=== PATIENT | male | born 1965 | race African-American/Black ===

== ENCOUNTER 2018-05-26 11:06 | Emergency (ER) | payer SELFPAY ==
[2018-05-26] MEDS ORDERED: CLINDAMYCIN HCL 150 MG CAP ONE (11:46)
[2018-05-26] MEDS ORDERED: HYDROCODONE/APAP 7.5/325 MG TAB ONE (11:46)
--- NOTE | 2018-05-26 11:53 | EDPHYS ---
Physician Documentation [facility] Name: Zheng Nicholas Age: 52 yrs Sex: Male : 1965 Arrival Date: 05/26/2018 Time: 11:10 Bed 14 Private MD: None, None ED Physician Manjinder Heller HPI: 05/26 11:41 This 52 yrs old Black Male presents to ER via Ambulatory with complaints of Toothache. kb 11:41 The patient presents with pain, swelling. The problem is located in the right jaw. kb Onset: The symptoms/episode began/occurred yesterday. Duration: The symptoms are continuous, and are unchanged since they started. Modifying factors: The symptoms are alleviated by cold fluids. Associated signs and symptoms: Pertinent positives: pain, swelling. Severity of symptoms: At their worst the symptoms were moderate, in the emergency department the symptoms are unchanged. The patient has not experienced similar symptoms in the past. The patient has been recently seen by a physician: a dentist, yesterday, with similar presenting complaints, and apparently given a diagnosis of impacted tooth. Pt has appt with Dr Rudolph in the middle of June to have impacted tooth removed. Was seen by dentist yesterday and given prescription for antibiotics, but he did not pick them up yet. Came in today because he needs something for pain. Historical: - Allergies: 11:17 No Known Allergies; aa5 - PMHx: 11:17 None; aa5 - PSHx: 11:17 None; aa5 - Immunization history:: Adult Immunizations unknown. - Social history:: Smoking status: Patient uses tobacco products, smokes one-half pack cigarettes per day. - Ebola Screening: : No symptoms or risks identified at this time. ROS: 11:41 Constitutional: Negative for fever, chills, and weight loss, Cardiovascular: Negative kb for chest pain, palpitations, and edema, Respiratory: Negative for shortness of breath, cough, wheezing, and pleuritic chest pain, Abdomen/GI: Negative for abdominal pain, nausea, vomiting, diarrhea, and constipation, MS/Extremity: Negative for injury and deformity, Skin: Negative for injury, rash, and discoloration, Neuro: Negative for headache, weakness, numbness, tingling, and seizure. 11:41 ENT: Positive for dental pain. Exam: 11:41 Constitutional: This is a well developed, well nourished patient who is awake, alert, kb and in no acute distress. Head/Face: Normocephalic, atraumatic. Chest/axilla: Normal chest wall appearance and motion. Nontender with no deformity. No lesions are appreciated. Cardiovascular: Regular rate and rhythm with a normal S1 and S2. No gallops, murmurs, or rubs. Normal PMI, no JVD. No pulse deficits. Respiratory: Lungs have equal breath sounds bilaterally, clear to auscultation and percussion. No rales, rhonchi or wheezes noted. No increased work of breathing, no retractions or nasal flaring. Abdomen/GI: Soft, non-tender, with normal bowel sounds. No distension or tympany. No guarding or rebound. No evidence of tenderness throughout. Back: No spinal tenderness. No costovertebral tenderness. Full range of motion. Skin: Warm, dry with normal turgor. Normal color with no rashes, no lesions, and no evidence of cellulitis. MS/ Extremity: Pulses equal, no cyanosis. Neurovascular intact. Full, normal range of motion. Neuro: Awake and alert, GCS 15, oriented to person, place, time, and situation. Cranial nerves II-XII grossly intact. Motor strength 5/5 in all extremities. Sensory grossly intact. Cerebellar exam normal. Normal gait. 11:41 ENT: Dental exam: gum swelling, pain, that is moderate. Vital Signs: 11:17 BP 136 / 95; Pulse 91; Resp 18 S; Temp 98.7(O); Pulse Ox 99% on R/A; Weight 81.65 kg aa5 (R); Height 6 ft. 1 in. (185.42 cm) (R); Pain 10/10; 11:17 Body Mass Index 23.75 (81.65 kg, 185.42 cm) aa5 MDM: 11:19 Patient medically screened. kb 11:49 Data reviewed: vital signs, nurses notes. Data interpreted: Pulse oximetry: is 99 %. kb Counseling: I had a detailed discussion with the patient and/or guardian regarding: the historical points, exam findings, and any diagnostic results supporting the discharge/admit diagnosis, the need for outpatient follow up, an oral maxilofacial specialist, to return to the emergency department if symptoms worsen or persist or if there are any questions or concerns that arise at home. 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 kb Administered Medications: 11:39 Drug: Clindamycin 300 mg Route: PO; bp 12:13 Follow up: Response: No adverse reaction bp 11:40 Drug: [place] (7.5 mg-325 mg) 1 tabs Route: PO; bp 12:13 Follow up: Response: Pain is decreased bp Disposition: 12:14 Co-signature as Attending Physician, Manjinder Heller MD. rn Disposition: 05/26/18 11:52 Discharged to Home. Impression: Impacted teeth. - Condition is Stable. - Discharge Instructions: Impacted Molar. - Prescriptions for Tramadol 50 mg Oral Tablet - take 1 tablet by ORAL route every 8 hours as needed; 12 tablet. - Medication Reconciliation Form, Thank You Letter, Antibiotic Education, Prescription Opioid Use form. - Follow up: Private Physician; When: 2 - 3 days; Reason: Recheck today's complaints, Continuance of care, Re-evaluation by your physician. Follow up: Emergency Department; When: As needed; Reason: Worsening of condition. Signatures: Lisha Steel, BEAUTY SALES ADVISOR-C BEAUTY SALES ADVISOR-Ckb Manjinder Heller MD MD rn Mary Lezama, RN RN aa5 Abiodun Vo RN RN bp Corrections: (The following items were deleted from the chart) 12:14 11:52 05/26/2018 11:52 Discharged to Home. Impression: Impacted teeth. Condition is bp Stable. Forms are Medication Reconciliation Form, Thank You Letter, Antibiotic Education, Prescription Opioid Use. Follow up: Private Physician; When: 2 - 3 days; Reason: Recheck today's complaints, Continuance of care, Re-evaluation by your physician. Follow up: Emergency Department; When: As needed; Reason: Worsening of condition. kb
--- NOTE | 2018-05-26 11:53 | ER ---
Nurse's Notes [facility] Name: Zheng Nicholas Age: 52 yrs Sex: Male : 1965 Arrival Date: 05/26/2018 Time: 11:10 Bed 14 Private MD: None, None Diagnosis: Impacted teeth Presentation: 05/26 11:16 Presenting complaint: Patient states: "I went to dentist yesterday and he told me I aa5 have an impacted tooth that I needed to see an ENT doctor but the ENT doctor won't be back until the middle of June and I am in a lot of pain". Transition of care: patient was not received from another setting of care. Onset of symptoms was May 2018. Risk Assessment: Do you want to hurt yourself or someone else? Patient reports no desire to harm self or others. Initial Sepsis Screen: Does the patient meet any 2 criteria? No. Patient's initial sepsis screen is negative. Does the patient have a suspected source of infection? No. Patient's initial sepsis screen is negative. Care prior to arrival: None. 11:16 Method Of Arrival: Ambulatory aa5 11:16 Acuity: DENISA 4 aa5 Triage Assessment: 11:20 General: Appears in no apparent distress. uncomfortable, Behavior is cooperative, bp appropriate for age, anxious. Pain: Complains of pain in mouth. EENT: Reports pain in mouth. Historical: - Allergies: 11:17 No Known Allergies; aa5 - PMHx: 11:17 None; aa5 - PSHx: 11:17 None; aa5 - Immunization history:: Adult Immunizations unknown. - Social history:: Smoking status: Patient uses tobacco products, smokes one-half pack cigarettes per day. - Ebola Screening: : No symptoms or risks identified at this time. Screenin:20 Abuse screen: Denies threats or abuse. Denies injuries from another. Nutritional bp screening: No deficits noted. Tuberculosis screening: No symptoms or risk factors identified. Fall Risk None identified. Assessment: 11:21 General: SEE TRIAGE NOTE. bp 12:11 Reassessment: PT D/C HOME AMBULATORY, DX WITH IMPACTED TEETH. bp Vital Signs: 11:17 BP 136 / 95; Pulse 91; Resp 18 S; Temp 98.7(O); Pulse Ox 99% on R/A; Weight 81.65 kg aa5 (R); Height 6 ft. 1 in. (185.42 cm) (R); Pain 10/; 11:17 Body Mass Index 23.75 (81.65 kg, 185.42 cm) aa5 ED Course: 11:10 Patient arrived in ED. mr 11:10 None, None is Private Physician. mr 11:16 Arm band placed on. aa5 11:17 Triage completed. aa5 11:19 Lisha Steel FNP-C is [facility]. kb 11:19 Manjinder Heller MD is Attending Physician. kb 11:19 Abiodun oV, RN is Primary Nurse. bp 11:20 Patient has correct armband on for positive identification. Bed in low position. Call bp light in reach. Side rails up X2. 12:12 No provider procedures requiring assistance completed. Patient did not have IV access bp during this emergency room visit. Administered Medications: 11:39 Drug: Clindamycin 300 mg Route: PO; bp 12:13 Follow up: Response: No adverse reaction bp 11:40 Drug: [place] (7.5 mg-325 mg) 1 tabs Route: PO; bp 12:13 Follow up: Response: Pain is decreased bp Outcome: 11:52 Discharge ordered by MD. kb 12:12 Discharged to home ambulatory. bp 12:12 Condition: stable 12:12 Discharge instructions given to patient, Instructed on discharge instructions, follow up and referral plans. medication usage, Demonstrated understanding of instructions, follow-up care, medications, Prescriptions given X 1. 12:14 Patient left the ED. bp Signatures: Lisha Steel FNP-C FNP-Ckb Claudia PetersonMary RN RN aa5 Abiodun Vo, RN RN bp
== END 2018-05-26 12:14 | disposition home or self-care (01) ==
LOC: ER 11:06
DX: K01.1 Impacted teeth (principal); F17.210 Nicotine dependence, cigarettes, uncomplicated
CPT/HCPCS: 99283

== ENCOUNTER 2019-08-29 10:32 | Emergency (ER) | payer SELFPAY ==
--- NOTE | 2019-08-29 11:32 | RAD REPORT ---
EXAM DESCRIPTION: RAD - Chest Pa And Lat (2 Views) - 08/29/2019 11:24 am CLINICAL HISTORY: Cough;Chest pain Chest pain. COMPARISON: CHEST PA AND LAT 2 VIEW dated 09/18/2010 FINDINGS: Emphysematous changes are present with a small opacity in the right lung base associated w ith a small right pleural effusion suspicious for infiltrate/ developing pneumonia. The heart is norm al in size. No displaced fractures. IMPRESSION: Mild infiltrate/ developing pneumonia suspected right lower lobe
--- NOTE | 2019-08-29 12:41 | EDPHYS ---
Physician Documentation [facility] Name: Zheng Nicholas Age: 54 yrs Sex: Male : 1965 Arrival Date: 08/29/2019 Time: 10:37 Bed 14 Private MD: ED Physician Manjinder Heller HPI: 08/28 11:15 This 54 yrs old Black Male presents to ER via Ambulatory with complaints of Vomiting, cp Abdominal Pain. 11:15 The patient or guardian reports cough, that is intermittent. cp 11:15 Onset: The symptoms/episode began/occurred yesterday. Associated signs and symptoms: cp Pertinent positives: chest pain, with cough, with breathing, vomiting, Pertinent negatives: fever. Severity of symptoms: in the emergency department the symptoms are unchanged despite home interventions. Historical: - Allergies: 10:55 No Known Allergies; iw - Home Meds: 10:55 None [Active]; iw - PMHx: 10:55 None; iw - PSHx: 10:55 None; iw - Immunization history:: Adult Immunizations not up to date. - Social history:: Smoking status: Patient reports the use of cigarette tobacco products, smokes one-half pack cigarettes per day, Patient uses alcohol, occasionally. ROS: 11:20 Constitutional: Negative for body aches, chills, fever, poor PO intake. cp 11:20 Eyes: Negative for injury, pain, redness, and discharge. cp 11:20 ENT: Negative for drainage from ear(s), ear pain, difficulty swallowing, difficulty cp handling secretions. 11:20 Cardiovascular: Positive for chest pain, with cough, of the left side chest, Negative for edema, palpitations. 11:20 Respiratory: Positive for cough, "sounds productive", Negative for wheezing. 11:20 Abdomen/GI: Positive for vomiting, Negative for abdominal pain, diarrhea, constipation. 11:20 Skin: Negative for rash. 11:20 Neuro: Negative for altered mental status, dizziness, headache, syncope, weakness. 11:20 All other systems are negative. Exam: 11:30 Constitutional: The patient appears in no acute distress, alert, awake, cp non-diaphoretic, non-toxic, well developed, well nourished. 11:30 Head/Face: Normocephalic, atraumatic. cp 11:30 Eyes: Periorbital structures: appear normal, Conjunctiva: normal, no exudate, no injection, Sclera: no appreciated abnormality, Lids and lashes: appear normal, bilaterally. 11:30 ENT: External ear(s): are unremarkable, Ear canal(s): cerumen impaction, that is moderate, bilaterally, Nose: is normal, Mouth: Lips: moist, Oral mucosa: pink and intact, moist, Posterior pharynx: is normal, airway is patent, no erythema, no exudate. 11:30 Neck: ROM/movement: is normal, is supple, without pain, no range of motions limitations, no meningismus. 11:30 Chest/axilla: Inspection: normal, Palpation: is normal, no crepitus, no tenderness. 11:30 Cardiovascular: Rate: normal, Rhythm: regular, Edema: is not appreciated, JVD: is not appreciated. 11:30 Respiratory: the patient does not display signs of respiratory distress, Respirations: normal, no use of accessory muscles, no retractions, no splinting, labored breathing, is not present, Breath sounds: bronchial sounds, that are mild, are heard in the left posterior lower lobe and right posterior lower lobe, decreased breath sounds, are not appreciated, stridor, is not appreciated, wheezing: is not appreciated. 11:30 Abdomen/GI: Inspection: abdomen appears normal, Palpation: abdomen is soft and non-tender, in all quadrants. 11:30 Skin: no rash present. 11:30 Neuro: Orientation: to person, place \\T\\ time. Mentation: is normal, Cerebellar function: is grossly normal, Motor: moves all fours, strength is normal, Sensation: is normal. Vital Signs: 10:50 BP 140 / 84; Pulse 83; Resp 18; Temp 98.8(T); Pulse Ox 99% ; Weight 77.11 kg; Height 6 iw ft. 1 in. (185.42 cm); Pain 9/10; 10:50 Body Mass Index 22.43 (77.11 kg, 185.42 cm) iw MDM: 11:01 Patient medically screened. cp 12:00 Differential diagnosis: bronchitis, flu, URI, pneumonia. cp 13:39 Data reviewed: vital signs, nurses notes, lab test result(s), radiologic studies, plain cp films, and as a result, I will discharge patient. 13:39 Counseling: I had a detailed discussion with the patient and/or guardian regarding: the cp historical points, exam findings, and any diagnostic results supporting the discharge/admit diagnosis, lab results, radiology results, the need for outpatient follow up, a family practitioner, to return to the emergency department if symptoms worsen or persist or if there are any questions or concerns that arise at home. 08/28 11:08 Order name: Influenza Screen (a \\T\\ B); Complete Time: 12:30 cp 08/28 12:30 Interpretation: Reviewed. 08/28 11:08 Order name: Strep; Complete Time: 12:30 cp 08/28 12:30 Interpretation: Reviewed. 08/28 11:08 Order name: XRAY Chest Pa And Lat (2 Views); Complete Time: 12:01 08/28 12:12 Order name: Throat Culture EDMS Administered Medications: No medications were administered Disposition: 14:14 Co-signature as Attending Physician, Manjinder Heller MD. rn Disposition: 08/29/19 12:40 Discharged to Home. Impression: Pneumonia due to other specified bacteria. - Condition is Stable. - Discharge Instructions: Community-Acquired Pneumonia, Adult. - Prescriptions for Augmentin 875- 125 mg Oral Tablet - take 1 tablet by ORAL route every 12 hours for 10 days; 20 tablet. Ibuprofen 800 mg Oral Tablet - take 1 tablet by ORAL route every 8 hours As needed take with food; 30 tablet. Tessalon Perles 100 mg Oral Capsule - take 2 capsule by ORAL route every 8 hours As needed; 20 capsule. Zithromax Z- [place] 250 mg Oral Tablet - take 1 tablet by ORAL route as directed for 5 days Day 1 - take two (2) tablets one time. Day 2, 3, 4 , 5 take one (1) tablet once daily.; 6 tablet. - Work release form, Medication Reconciliation Form, Thank You Letter, Antibiotic Education, Prescription Opioid Use form. - Follow up: Private Physician; When: 2 - 3 days; Reason: Recheck today's complaints. - Problem is new. - Symptoms are unchanged. Signatures: Dispatcher [employer] EDHitesh Allen RN RN em Williams, Irene, RN RN iw Nieto, Roman, MD MD rn Page, Corey, PA PA cp Corrections: (The following items were deleted from the chart) 12:49 12:40 08/29/2019 12:40 Discharged to Home. Impression: Pneumonia due to other specified em bacteria. Condition is Stable. Forms are Medication Reconciliation Form, Thank You Letter, Antibiotic Education, Prescription Opioid Use. Follow up: Private Physician; When: 2 - 3 days; Reason: Recheck today's complaints. Problem is new. Symptoms are unchanged. cp 08/29 06:08/27 11:30 Constitutional: The patient appears in no acute distress, alert, awake, cp non-diaphoretic, non-toxic, well developed, well nourished, cp 08/29 06:08/27 11:30 Head/Face: Normocephalic, atraumatic. cp cp 08/29 06:08/27 11:30 Eyes: Periorbital structures: appear normal, Conjunctiva: normal, no cp exudate, no injection, Sclera: no appreciated abnormality, Lids and lashes: appear normal, bilaterally, cp 08/29 06:08/27 11:30 ENT: External ear(s): are unremarkable, Ear canal(s): are normal, clear, cp TM's: bulging, is not appreciated, bilaterally, dullness, bilaterally, erythema, is not appreciated, bilaterally, Nose: is normal, Mouth: Lips: moist, Oral mucosa: pink and intact, moist, Posterior pharynx: is normal, airway is patent, no erythema, no exudate, cp 08/29 06:08/27 11:30 Neck: ROM/movement: is normal, is supple, without pain, no range of motions cp limitations, no meningismus, no nuchal rigidity, cp 08/29 06:08/27 11:30 Chest/axilla: Inspection: normal, Palpation: is normal, no crepitus, no cp tenderness, cp 08/29 06:08/27 11:30 Cardiovascular: Rate: normal, Rhythm: regular, Edema: is not appreciated, cp JVD: is not appreciated, cp 08/29 06:08/27 11:30 Respiratory: the patient does not display signs of respiratory distress, cp Respirations: normal, no use of accessory muscles, no retractions, no splinting, no tachypnea, labored breathing, is not present, Breath sounds: bronchial sounds, that are mild, are heard in the left posterior lower lobe and right posterior lower lobe, decreased breath sounds, are not appreciated, wheezing: is not appreciated, cp 08/29 06:08/27 11:30 Abdomen/GI: Inspection: abdomen appears normal, Palpation: abdomen is soft cp and non-tender, in all quadrants, cp 08/29 06:08/27 11:30 Back: pain, that is mild, of the left subscapular area, ROM is normal, cp cp 08/29 06:08/27 11:30 Skin: no rash present. cp cp 08/29 06:08/27 11:30 Neuro: Orientation: to person, place \\T\\ time. Mentation: is normal, cp Cerebellar function: is grossly normal, Motor: moves all fours, strength is normal, cp
--- NOTE | 2019-08-29 12:41 | ER ---
Nurse's Notes [facility] Name: Zheng Nicholas Age: 54 yrs Sex: Male : 1965 Arrival Date: 08/29/2019 Time: 10:37 Bed 14 Private MD: Diagnosis: Pneumonia due to other specified bacteria Presentation: 08/27 16:30 Initial Sepsis Screen: Does the patient meet any 2 criteria? No. Patient's initial iw sepsis screen is negative. Does the patient have a suspected source of infection? No. Patient's initial sepsis screen is negative. Risk Assessment: Do you want to hurt yourself or someone else? Patient reports no desire to harm self or others. 16:30 Acuity: DENISA 3 iw 08/28 10:50 Chief complaint: Patient states: diarrheam, vomiting and an since yesterday. productive iw white to yellow mucous. Coronavirus screen: The patient has NOT traveled to a country currently being monitored by the [facility] within the last 14 days. The patient has NOT had contact with any known and/or suspected case of coronavirus. Ebola Screen: Patient denies exposure to infectious person. Patient denies travel to an Ebola-affected area in the 21 days before illness onset. 10:50 Method Of Arrival: Ambulatory iw 10:55 Onset of symptoms was August 28, 2019. iw 16:02 Onset of symptoms is unknown. iw Historical: - Allergies: 10:55 No Known Allergies; iw - Home Meds: 10:55 None [Active]; iw - PMHx: 10:55 None; iw - PSHx: 10:55 None; iw - Immunization history:: Adult Immunizations not up to date. - Social history:: Smoking status: Patient reports the use of cigarette tobacco products, smokes one-half pack cigarettes per day, Patient uses alcohol, occasionally. Screenin:30 Abuse screen: Denies threats or abuse. Nutritional screening: No deficits noted. em Tuberculosis screening: No symptoms or risk factors identified. Fall Risk None identified. Assessment: 11:15 Reassessment: currently in xray. em 11:25 General: Appears in no apparent distress. comfortable, Behavior is calm, cooperative, em Denies fever. Pain: Complains of pain in diaphragm Pain currently is 9 out of 10 on a pain scale. Pain began 1 day ago. Neuro: Level of Consciousness is awake, alert, obeys commands, Oriented to person, place, time, situation, Appropriate for age. Cardiovascular: Capillary refill < 3 seconds Patient's skin is warm and dry. Respiratory: Reports pain with cough pain with respiration Airway is patent Respiratory effort is Respiratory pattern is regular, symmetrical, Breath sounds are clear bilaterally. Denies shortness of breath. GI: Abdomen is flat, Bowel sounds present X 4 quads. Reports diarrhea, Patient currently denies nausea, vomiting. Derm: Skin is intact, is healthy with good turgor, Skin is pink, warm \T\ dry. Musculoskeletal: Capillary refill < 3 seconds, Range of motion: intact in all extremities. 12:48 Reassessment: Patient appears in no apparent distress at this time. Patient and/or em family updated on plan of care and expected duration. Pain level reassessed. Patient is alert, oriented x 3, equal unlabored respirations, skin warm/dry/pink. Vital Signs: 10:50 BP 140 / 84; Pulse 83; Resp 18; Temp 98.8(T); Pulse Ox 99% ; Weight 77.11 kg; Height 6 iw ft. 1 in. (185.42 cm); Pain 9/10; 10:50 Body Mass Index 22.43 (77.11 kg, 185.42 cm) iw ED Course: 10:37 Patient arrived in ED. ag5 10:50 Nyasia Mai, RN is Primary Nurse. iw 10:55 Triage completed. iw 10:56 Didier Singer PA is PHCP. cp 10:56 Manjinder Heller MD is Attending Physician. cp 11:26 XRAY Chest Pa And Lat (2 Views) In Process Unspecified. EDMS 11:30 Patient has correct armband on for positive identification. Placed in gown. Bed in low em position. Call light in reach. Adult w/ patient. 11:30 Flu and/or RSV swab sent to lab. Strep swab sent to lab. em 11:35 Arm band placed on. iw 12:47 No provider procedures requiring assistance completed. Patient did not have IV access em during this emergency room visit. Administered Medications: No medications were administered Outcome: 12:40 Discharge ordered by . cp 12:47 Discharged to home ambulatory. em 12:47 Condition: good 12:47 Discharge instructions given to patient, Instructed on discharge instructions, follow up and referral plans. medication usage, Demonstrated understanding of instructions, follow-up care, medications, Prescriptions given X 4. 12:49 Patient left the ED. em Signatures: Dispatcher [employer] Hitesh Villa RN RN em Williams, Irene, RN RN Didier Russell PA PA cp Gaskin, Rangel ag5
[2019-08-29 13:01] VITALS: BP 140/84; TEMP 98.8; O2SAT 99
== END 2019-08-29 12:49 | disposition home or self-care (01) ==
LOC: ER 10:32
DX: J15.8 Pneumonia due to other specified bacteria (principal); F17.210 Nicotine dependence, cigarettes, uncomplicated
CPT/HCPCS: 71046; 87070; 87081; 87804; 99283

== ENCOUNTER 2020-10-23 09:24 | Emergency (ER) | payer OTHER ==
--- OUTSIDE RECORDS SUMMARY | 2020-10-23 09:27 | XMS REPORT | Continuity of Care Document ---
:1965 Author Organization [facility] t Address [address] [place] [address] Care Team Providers Name Role Phone Unavailable Unavailable Unavailable Problems This patient has no known problems. Allergies, Adverse Reactions, Alerts This patient has no known allergies or adverse reactions. Medications This patient has no known medications. Procedures This patient has no known procedures. Encounters Start End Encounter Admission Attending Care Care Encounter Source Date/Time Date/Time Type Type Clinicians Facility Department ID 2020-09-07 2020-09-07 Outpatient [facility] [id number] 00:00[facility]00 [facility]00[facility]00 [facility] 2020-09-05 2020-09-05 Outpatient [facility] [id number] [facility] 2020-08-30 2020-08-30 Outpatient [facility] [id number] [facility] 2020-08-21 2020-08-21 Outpatient [facility] [id number] [facility] Results This patient has no known results.
--- NOTE | 2020-10-23 11:01 | RAD REPORT ---
EXAM DESCRIPTION: US - Scrotum Testicles - 10/23/2020 10:44 am CLINICAL HISTORY: Testicular pain COMPARISON: July 2020 FINDINGS: Right testicle measures 4 x 2.2 x 2.3 centimeters. Echotexture is homogeneous. Normal bloo d flow Left testicle measures 3.8 x 2.3 x 2.5 centimeters. Echotexture is homogeneous. Normal blood flow Right epididymis is normal in size and echotexture. Normal blood flow The left epididymis is enlarged with increased blood flow. Large right hydrocele. Small left hydrocele. IMPRESSION: Left epididymitis Large right hydrocele
[2020-10-23 11:30] LABS: Urine Blood Trace-lysed (Negative); Urine Glucose Negative (Negative); Urine Protein Negative (Negative); Urine Specific Gravity 1.025 (1.005-1.030); Urine pH 5.5 (5.0-7.0)
--- NOTE | 2020-10-23 11:37 | EDPHYS ---
Physician Documentation [facility] Name: Zheng Nicholas Age: 55 yrs Sex: Male : 1965 Arrival Date: 10/23/2020 Time: 09:26 Bed 13 Private MD: Pernell Marrufo ED Physician Manjinder Heller HPI: 10/23 11:32 This 55 yrs old Black Male presents to ER via Ambulatory with complaints of Testicular rn Pain. 11:32 The patient presents with scrotal pain. The patient presents with scrotal pain, of the rn left side, in the area of the epidydimis, with swelling, without erythema. Onset: The symptoms/episode began/occurred yesterday. Modifying factors: The symptoms are alleviated by elevation, the symptoms are aggravated by movement, pressure. Associated signs and symptoms: Pertinent negatives: abdominal pain, dysuria, fever. Severity of symptoms: At their worst the symptoms were moderate, in the emergency department the symptoms have improved. The patient has not experienced similar symptoms in the past. The patient has been recently seen by a physician:. Reports longstanding hydrocele, is due for surgery soon with Dr. Marrufo, suddenly began with left scrotal pain yesterday, states pain got worse so came in. No trauma. No increased swelling compared to baseline. No urinary symptoms. No fever. . Historical: - Allergies: 10:02 No Known Drug Allergies; tw2 - Home Meds: 10:02 None [Active]; tw2 - PMHx: 10:02 None; tw2 - PSHx: 10:02 None; tw2 - Immunization history:: Adult Immunizations. - Social history:: Smoking status: Patient reports the use of cigarette tobacco products, smokes one-half pack cigarettes per day. - Family history:: not pertinent. - Hospitalizations: : No recent hospitalization is reported. ROS: 11:32 Constitutional: Negative for fever, chills, and weight loss, Eyes: Negative for injury, rn pain, redness, and discharge, Neck: Negative for injury, pain, and swelling, Cardiovascular: Negative for chest pain, palpitations, and edema, Respiratory: Negative for shortness of breath, cough, wheezing, and pleuritic chest pain, Abdomen/GI: Negative for abdominal pain, nausea, vomiting, diarrhea, and constipation, Back: Negative for injury and pain, : + left scrotal pain Exam: 11:32 Constitutional: This is a well developed, well nourished patient who is awake, alert, rn and in no acute distress. Abdomen/GI: soft, non-tender Male : + mildly enlarged scrotum with tenderness left epididymis, no erythema or warmth. Vital Signs: 09:59 BP 111 / 79; Pulse 93; Resp 17; Temp 97.9(O); Pulse Ox 100% on R/A; Weight 73.48 kg; tw2 Height 6 ft. 1 in. (185.42 cm); Pain 10/10; 11:00 BP 116 / 74; Pulse 67; Resp 18; Pulse Ox 100% on R/A; kg 11:30 BP 114 / 71; Pulse 70; Resp 20; Pulse Ox 100% on R/A; kg 12:00 BP 113 / 76; Pulse 66; Resp 18; Pulse Ox 100% on R/A; kg 09:59 Body Mass Index 21.37 (73.48 kg, 185.42 cm) tw2 MDM: 10:06 Patient medically screened. rn 11:32 Differential diagnosis: nonspecific abdominal pain, UTI, epididymitis. Data reviewed: rn vital signs, nurses notes, lab test result(s), radiologic studies, ultrasound, and as a result, I will discharge patient. Counseling: I had a detailed discussion with the patient and/or guardian regarding: the historical points, exam findings, and any diagnostic results supporting the discharge/admit diagnosis, lab results, radiology results, the need for outpatient follow up, to return to the emergency department if symptoms worsen or persist or if there are any questions or concerns that arise at home. Response to treatment: the patient's symptoms have mildly improved after treatment, and as a result, I will discharge patient. ED course: Exam, story and u/s consistent with epididymitis, will dc home with levaquin and urology f/u. . 10/23 10:58 Order name: Urine Microscopic Only rn 10/23 10:58 Order name: Urine Culture rn 10/23 10:02 Order name: Scrotum Testicles; Complete Time: 11:29 kb 10/23 11:30 Order name: Urine Dipstick-Ancillary; Complete Time: 11:36 EDMS Administered Medications: No medications were administered Disposition: 10/23/20 11:36 Discharged to Home. Impression: Epididymitis. - Condition is Stable. - Discharge Instructions: Epididymitis. - Prescriptions for Levaquin 500 mg Oral Tablet - take 1 tablet by ORAL route once daily for 10 days; 10 tablet. Tylenol- Codeine #3 300-30 mg Oral Tablet - take 1 tablet by ORAL route every 4-6 hours As needed; 15 tablet. - Medication Reconciliation Form, Thank You Letter, Antibiotic Education, Prescription Opioid Use form. - Follow up: Pernell Marrufo MD; When: As needed; Reason: Recheck today's complaints, Re-evaluation by your physician. - Problem is new. - Symptoms have improved. Signatures: Dispatcher [employer] EDMS Manjinder Heller MD MD rn Wise, Tara, RN RN 2 Nelly Smallwood kg Corrections: (The following items were deleted from the chart) 12:26 11:36 10/23/2020 11:36 Discharged to Home. Impression: Epididymitis. Condition is kg Stable. Forms are Medication Reconciliation Form, Thank You Letter, Antibiotic Education, Prescription Opioid Use. Follow up: Pernell Marrufo; When: As needed; Reason: Recheck today's complaints, Re-evaluation by your physician. Problem is new. Symptoms have improved. rn
--- NOTE | 2020-10-23 11:37 | ER ---
Nurse's Notes [facility] Name: Zheng Nicholas Age: 55 yrs Sex: Male : 1965 Arrival Date: 10/23/2020 Time: 09:26 Bed 13 Private MD: Pernell Marrufo Diagnosis: Epididymitis Presentation: 10/23 09:59 Chief complaint: Patient states: i am scheduled to have surgery on my testicles on the tw2 , but since Thursday i am having swelling well more like a knot on the LEFT side and the pain has gotten worse. Dr. Marrufo told me to come in to see if i might need to have emergency surgery. Coronavirus screen: At this time, the client does not indicate any symptoms associated with coronavirus-19. Ebola Screen: Patient denies travel to an Ebola-affected area in the 21 days before illness onset. Initial Sepsis Screen: Does the patient meet any 2 criteria? No. Patient's initial sepsis screen is negative. Does the patient have a suspected source of infection? No. Patient's initial sepsis screen is negative. Risk Assessment: Do you want to hurt yourself or someone else? Patient reports no desire to harm self or others. Onset of symptoms was October 23, 2020. 09:59 Method Of Arrival: Ambulatory tw2 09:59 Acuity: DENISA 3 tw2 Triage Assessment: 10:04 General: Appears uncomfortable, slender, Behavior is calm, cooperative, appropriate for tw2 age. Pain: Complains of pain in LEFT testicle. Historical: - Allergies: 10:02 No Known Drug Allergies; tw2 - Home Meds: 10:02 None [Active]; tw2 - PMHx: 10:02 None; tw2 - PSHx: 10:02 None; tw2 - Immunization history:: Adult Immunizations. - Social history:: Smoking status: Patient reports the use of cigarette tobacco products, smokes one-half pack cigarettes per day. - Family history:: not pertinent. - Hospitalizations: : No recent hospitalization is reported. Screenin:58 Abuse screen: Denies threats or abuse. Nutritional screening: No deficits noted. kg Tuberculosis screening: No symptoms or risk factors identified. Fall Risk None identified. No fall in past 12 months (0 pts). No secondary diagnosis (0 pts). No IV (0 pts). Ambulatory Aid- None/Bed Rest/Nurse Assist (0 pts). Gait- Impaired (20 pts.). Mental Status- Oriented to own ability (0 pts). Total Lindquist Fall Scale indicates No Risk (0-24 pts). Assessment: 10:56 General: Appears in no apparent distress. Behavior is calm, cooperative, appropriate kg for age, quiet. Pain: Complains of pain in groin Pain currently is 6 out of 10 on a pain scale. at worst was 10 out of 10 on a pain scale. level that patient reports is acceptable is 3 out of 10 on a pain scale. Quality of pain is described as aching, sharp, squeezing, throbbing, Pain began suddenly. Neuro: No deficits noted. Cardiovascular: No deficits noted. Cardiovascular: Heart tones S1 S2. Respiratory: No deficits noted. Airway is patent Breath sounds are clear. GI: No deficits noted. Abdomen is flat, Bowel sounds present X 4 quads. : Reports pain testicle. EENT: No deficits noted. Derm: No deficits noted. Musculoskeletal: No deficits noted. Vital Signs: 09:59 BP 111 / 79; Pulse 93; Resp 17; Temp 97.9(O); Pulse Ox 100% on R/A; Weight 73.48 kg; tw2 Height 6 ft. 1 in. (185.42 cm); Pain 10/10; 11:00 BP 116 / 74; Pulse 67; Resp 18; Pulse Ox 100% on R/A; kg 11:30 BP 114 / 71; Pulse 70; Resp 20; Pulse Ox 100% on R/A; kg 12:00 BP 113 / 76; Pulse 66; Resp 18; Pulse Ox 100% on R/A; kg 09:59 Body Mass Index 21.37 (73.48 kg, 185.42 cm) tw2 ED Course: 09:26 Patient arrived in ED. as 09:26 Pernell Marrufo MD is Private Physician. as 10:01 Triage completed. tw2 10:04 Arm band placed on. tw2 10:06 Manjinder Heller MD is Attending Physician. rn 10:30 Nelly Smallwood is Primary Nurse. kg 10:34 US Scrotum Testicles In Process Unspecified. EDMS 11:36 Pernell Marrufo MD is Referral Physician. rn 12:19 Patient has correct armband on for positive identification. Placed in gown. Bed in low kg position. Call light in reach. Side rails up X2. 12:19 No provider procedures requiring assistance completed. Patient did not have IV access kg during this emergency room visit. Administered Medications: No medications were administered Outcome: 11:36 Discharge ordered by . rn 12:19 Discharged to home ambulatory. kg 12:19 Condition: stable 12:19 Discharge instructions given to patient, Instructed on discharge instructions, follow up and referral plans. Demonstrated understanding of instructions, follow-up care, medications, Prescriptions given X 2. 12:26 Patient left the ED. kg Addendum: 10/26/2020 08:35 Addendum: Culture Results: Positive urine culture. No further action required. Bacteria e b sensitive to prescribed antibiotic. Signatures: Dispatcher [employer] KEVINMS Arti Davis Roman, MD MD rn Wise, Tara, RN RN tw2 Verónica Staley Kristen kg
[2020-10-23 12:21] LABS: Urine Bacteria NONE SEEN /HPF (NONE SEEN); Urine RBC NONE SEEN /HPF (NONE SEEN)
[2020-10-23 12:36] VITALS: TEMP 97.9; O2SAT 100
[2020-10-23 12:40] VITALS: BP 113/76
== END 2020-10-23 12:26 | disposition home or self-care (01) ==
LOC: ER 09:24
DX: N45.1 Epididymitis (principal); F17.210 Nicotine dependence, cigarettes, uncomplicated
CPT/HCPCS: 76870; 81003; 81015; 87077; 87086; 87088; 87186; 99283

== ENCOUNTER 2020-11-06 10:33 | Day surgery (SDC) | payer OTHER ==
--- NOTE | 2020-11-02 14:27 | RAD REPORT ---
EXAM DESCRIPTION: RAD - Chest Pa And Lat (2 Views) - 11/02/2020 2:15 pm CLINICAL HISTORY: preop, patient pending testicular surgery COMPARISON: Two view chest August 2019 TECHNIQUE: Frontal and lateral views of the chest were obtained. FINDINGS: The lungs are fibrotic. No acute failure, infiltrate or mass. No mediastinal or hilar mass or lymphadenopathy identified. Heart size is normal and central vasculature is within normal limit s. No pleural effusion or pneumothorax seen. No acute bony finding noted. No aortic abnormality. IMPRESSION: No acute cardiopulmonary process. 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 This can be correlated with pulmonary func tion studies if not already performed.
[2020-11-02 15:27] LABS: Absolute Lymphocytes (CBC) 1.7 K/uL (0.7-4.9); Basophils % 1.3 % (0-1.3); Hematocrit 35.9 % (39.6-49.0); Lymphocytes % 35.4 % (15.3-44.8); MPV 7.5 fL (7.6-11.3); RBC Red Blood Cell Count 3.64 M/uL (4.33-5.43)
[2020-11-02 15:30] LABS: Protime INR 0.91
[2020-11-02 15:36] LABS: BUN Blood Urea Nitrogen 6 mg/dL (7-18); Bicarbonate 28 mmol/L (21-32); Glucose Level 87 mg/dL (74-106); Potassium 3.9 mmol/L (3.5-5.1); Sodium Level 145 mmol/L (136-145)
[2020-11-06] MEDS ORDERED: Ringers Lactate 1,000 ML IV ONE (11:28)
[2020-11-06] MEDS ORDERED: CEFAZOLIN/SWI 1gm 1 GM/10 ML SYR ONE ×2 (11:28→19:02)
[2020-11-06] MEDS ORDERED: BACITRACIN OINTMENT 15 GM TUBE TOP ONE (13:42)
[2020-11-06] MEDS ORDERED: BUPIVACAINE 0.25% PF 30 ML VIAL ONE (13:43)
[2020-11-06] MEDS ORDERED: FENTANYL CITR 100 MCG/2 ML ONE (14:54)
[2020-11-06] MEDS ORDERED: propofoL 200 MG/20 ML VIAL IV ONE (14:54)
[2020-11-06] MEDS ORDERED: MIDAZOLAM HCL 2 MG/2 ML INJ ONE (14:55)
[2020-11-06] MEDS ORDERED: LIDOCAINE 1% MPF 5 ML VIAL ONE (14:55)
[2020-11-06] MEDS ORDERED: LIDOCAINE JELLY 2% 5 ML SYRINGE TOP ONE (19:50)
[2020-11-06 19:52] VITALS: O2SAT 100
[2020-11-06] MEDS ORDERED: PHENAZOPYRIDINE 100MG TAB PO ONE (20:07)
[2020-11-06] MEDS ORDERED: HYDROCODONE/APAP 5/325 MG TAB PO PRN (20:07)
[2020-11-06] MEDS ORDERED: MORPHINE 4 MG/ML SYR ONE (20:40)
[2020-11-06] MEDS ORDERED: CODEINE 30MG/APAP 300MG TAB ONE (20:51)
[2020-11-06 21:08] VITALS: BP 117/72; TEMP 97.5
--- NOTE | 2020-11-07 02:12 | OP ---
Surgeon: DENNIS HERNANDEZ Preoperative Diagnoses: 1. Large right hydrocele. 2. Recurrent urinary tract infections. Postoperative Diagnoses: 1. Large right hydrocele. 2. Recurrent urinary tract infections. 3. Benign prostatic hypertrophy. Principle Procedures: 1. Jaboulay hydrocelectomy, right side. 2. Flexible cystoscopy. Date of Procedure: 11/06/2020 Indication For Procedure: Mr. Nicholas presented to the Urology Clinic with complaints of right-sided scrotal swelling and some discomfort. He was found to have evidence of epididymitis as well as an infection with a pansensitive E. coli. This was initially treated, but 2 months later, he called again with complaints of pain associated with what was found to be a urinary tract infection. He also had gross hematuria at that event. He presents today for definitive management of his hydrocele, and we will evaluate his lower urinary tract cystoscopically in the process. Procedure In Detail: The patient was consented in the preoperative holding area before being transferred to the operative suite where general anesthesia was induced. He was given Ancef 2 g IV antimicrobial prophylaxis and pneumo boots were provided for DVT prophylaxis. He was placed supine on the procedure table and his right hemiscrotum was shaved, prepped with Betadine and draped in standard fashion. The case was begun using 0.25% Marcaine to instill subcutaneously and a Joanie's line incision in the right hemiscrotum. This incision length was about 3 cm and was deepened through the subcutaneous tissues and dartos layers using electrocautery. Once the tunica vaginalis was encountered, the entirety of the hydrocele sac was circumferentially released from its surrounding dartos layers until the sac could be delivered outside of the incision. The sac was then opened in the anterior midline and decompressed of a significant quantity of fluid, and the sac was further incised until it could be wrapped around the posterior surface of the testis and the cord structure. The majority of the sac was then excised, and the remaining component of the sac was then plicated behind the cord structures in a running and every third interlocking fashion with 3-0 Vicryl suture. Once this was completed, a careful search for bleeding within the scrotum was again undertaken after irrigation of the intrascrotal contents. Once any bleeding vessels were pinpoint fulgurated, we then returned the testis into the scrotal sac and reapproximated the dartos layers using 3-0 Vicryl in a running fashion. The skin and subcutaneous tissues were also reapproximated using 3-0 chromic suture in a running fashion. At this point, I turned my attention to the flexible cystoscopic portion of the operation. Using a 16-Malagasy digital flexible , after a lidocaine Uro-Jet was instilled intraurethrally, the cystoscope was used to traverse the urethra and enter his bladder with ease. There was mild-moderate BPH with slight elevation of a median bar and mild lateral lobar hypertrophy with no significant intravesical projection. The bladder itself was surveyed in its entirety, and there were no mucosal lesions, foreign bodies or stones throughout. There was minimal intravesical debris indicative of likely prior infection. The ureteral orifices were orthotopic in location and the urine was clear without signs of blood. Retroflexion view of the bladder neck revealed mild intravesical projection as previously noted. As a result, I surveyed the urethra on the way out and no significant stricture disease was noted with the exception of minimal meatal stenosis that did not obscure the passage of the 16- Malagasy flexible cystoscope. As a result, I then passed a 16-Malagasy coude-tipped Mckenzie catheter into his bladder to decompress it of fluid and urine, and once this was done, the catheter was removed and the patient was awakened from general anesthesia. He was then transferred to a stretcher and then to the recovery room in good condition. A fluff gauze and scrotal support were applied along with bacitracin to the incision line upon transferred to the stretcher. Complications: None. Discharge Disposition: He will follow up in the Urology Clinic in about 2 weeks with nurse practitioner, Raghav, to assess the incision and the postoperative hydrocele recovery. At that time, an investigation of his recurrent urinary tract infections, upper tract imaging should be ordered with either a renal ultrasound and a KUB or alternatively a CT scan. If he has a significant smoking history, a CT scan would be recommended, otherwise, renal ultrasound plus KUB should be sufficient. We would be looking for an upper tract stone or foreign body to explain the source of the recurrent pansensitive E. coli urinary tract infections. Subsequently, he should follow up with me in about 6 weeks' time postoperatively to assess the hydrocele recovery and review the imaging and determine if any next steps are required in management of his recurrent urinary tract infections. Consideration may be given to alpha leonie versus a procedure like UroLift if obstructive urinary symptoms abound. DAMARIS/MAHNAZ Voice ID: [id number] Report ID: [id number] MTDD
== END 2020-11-06 21:02 | disposition home or self-care (01) ==
LOC: OR 10:33
PROVIDERS: ATTEND Urology
PROC: 0VB60ZZ Excision of Right Tunica Vaginalis, Open Approach (ICD-10-PCS; principal; 2020-11-06 10:15)
PROC: 0TJB8ZZ Inspection of Bladder, Via Natural or Artificial Opening Endoscopic (ICD-10-PCS; 2020-11-06 10:15)
DX: N43.3 Hydrocele, unspecified (principal); N39.0 Urinary tract infection, site not specified; R31.9 Hematuria, unspecified; Z20.822 Contact with and (suspected) exposure to COVID-19; Z87.440 Personal history of urinary (tract) infections
CPT/HCPCS: 55040; 52000; 93005; 87088; 85025; 87086; 80048; 36415; 85610; 85730; 71046; U0003; J2704; J2250; J3010; J0690 ×2; J7120

== ENCOUNTER 2021-03-25 12:28 | Emergency (ER) | payer OTHER ==
[2021-03-25 14:34] LABS: Absolute Lymphocytes (CBC) 1.2 K/uL (0.7-4.9); Basophils % 0.6 % (0-1.3); Hematocrit 34.3 % (39.6-49.0); Lymphocytes % 20.9 % (15.3-44.8); MPV 7.2 fL (7.6-11.3); RBC Red Blood Cell Count 3.45 M/uL (4.33-5.43)
[2021-03-25 14:36] LABS: Protime INR 0.95
[2021-03-25] MEDS ORDERED: ALBUTEROL 2.5 MG/3 ML NEB SOL ONE (14:42)
[2021-03-25] MEDS ORDERED: METHYLPREDNISOLONE 125 MG INJ ONE (14:42)
[2021-03-25] MEDS ORDERED: IPRATROPIUM BROM 0.5MG/2.5ML ONE (14:43)
[2021-03-25] MEDS ORDERED: KETOROLAC 30 MG/ML INJ ONE (14:43)
[2021-03-25 15:15] LABS: ALT/SGPT 37 U/L (12-78); AST/SGOT 47 U/L (15-37); Albumin 3.5 g/dL (3.4-5.0); Alkaline Phosphatase 78 U/L (45-117); BUN Blood Urea Nitrogen 5 mg/dL (7-18); Bicarbonate 26 mmol/L (21-32); Bilirubin Direct 0.3 mg/dL (0-0.2); Bilirubin Total 0.9 mg/dL (0.2-1.0); Glucose Level 95 mg/dL (74-106); Magnesium 1.8 mg/dL (1.8-2.4); NT PRO-BNP 208 pg/mL (<125); Potassium 3.3 mmol/L (3.5-5.1); Protein, Total 7.1 g/dL (6.4-8.2); Sodium Level 139 mmol/L (136-145); Troponin (Emerg Dept Use Only) < 0.02 ng/mL (0.0-0.045)
--- NOTE | 2021-03-25 15:53 | RAD REPORT ---
EXAM DESCRIPTION: Shena Single View03/25/2021 3:17 pm CLINICAL HISTORY: sob COMPARISON: October 2020 FINDINGS: The lungs appear clear of acute infiltrate. The heart is normal size IMPRESSION: No acute abnormalities displayed
[2021-03-25] MEDS ORDERED: ONDANSETRON 4 MG/2 ML VIAL ONE (16:04)
[2021-03-25] MEDS ORDERED: MORPHINE 4 MG/ML SYR ONE (16:04)
--- NOTE | 2021-03-25 16:39 | ER ---
Nurse's Notes [facility] Name: Zheng Nicholas Age: 55 yrs Sex: Male : 1965 Arrival Date: 03/25/2021 Time: 12:30 Bed 27 Private MD: Diagnosis: Pleurisy;Chest pain on breathing;Chest pain, unspecified Presentation: 03/25 13:00 Chief complaint: Patient states: Pain to left lower rib cage with SOB. Pt denies aa5 cough/congestion. Coronavirus screen: shortness of breath. Ebola Screen: Patient negative for fever greater than or equal to 101.5 degrees Fahrenheit, and additional compatible Ebola Virus Disease symptoms. Initial Sepsis Screen: Does the patient meet any 2 criteria? No. Patient's initial sepsis screen is negative. Does the patient have a suspected source of infection? No. Patient's initial sepsis screen is negative. Risk Assessment: Do you want to hurt yourself or someone else? Patient reports no desire to harm self or others. Onset of symptoms was March 2021. 13:00 Method Of Arrival: Wheelchair aa5 13:00 Acuity: DENISA 3 aa5 Historical: - Allergies: 13:01 No Known Allergies; aa5 - PMHx: 13:01 None; aa5 - PSHx: 13:01 mass removed from testicles; aa5 - Immunization history:: Client reports having NOT received the Covid vaccine. - Social history:: Smoking status: Patient denies any tobacco usage or history of. Screenin:42 Abuse screen: Denies threats or abuse. Denies injuries from another. Nutritional ld1 screening: No deficits noted. Tuberculosis screening: No symptoms or risk factors identified. Fall Risk None identified. Assessment: 13:40 General: Appears in no apparent distress. uncomfortable, Behavior is calm, cooperative, ld1 appropriate for age. Pain: Complains of pain in left lateral anterior chest and left lateral posterior chest Pain does not radiate. Pain currently is 10 out of 10 on a pain scale. Quality of pain is described as shooting, stabbing, Pain began 1 day ago. Is continuous. Neuro: Level of Consciousness is awake, alert, obeys commands, Oriented to person, place, time, situation, Appropriate for age. Cardiovascular: Capillary refill < 3 seconds Patient's skin is warm and dry. Rhythm is sinus rhythm. Respiratory: Airway is patent Respiratory effort is even, unlabored, Respiratory pattern is regular, symmetrical, Breath sounds are clear bilaterally. GI: Abdomen is flat, non-distended. : No signs and/or symptoms were reported regarding the genitourinary system. EENT: No signs and/or symptoms were reported regarding the EENT system. Derm: No signs and/or symptoms reported regarding the dermatologic system. Musculoskeletal: No signs and/or symptoms reported regarding the musculoskeletal system. 13:40 Respiratory: Reports pain with respiration. ld1 15:23 Reassessment: Patient appears in no apparent distress at this time. No changes from ld1 previously documented assessment. Patient and/or family updated on plan of care and expected duration. Pain level reassessed. Pt c/o pain, level 9/10. Notified ERP. 16:15 Reassessment: Patient appears in no apparent distress at this time. No changes from ld1 previously documented assessment. Patient and/or family updated on plan of care and expected duration. Pain level reassessed. Vital Signs: 13:00 BP 129 / 77; Pulse 71; Resp 18 S; Temp 99.3(TE); Pulse Ox 100% on R/A; Weight 74.84 kg aa5 (R); Height 6 ft. 1 in. (185.42 cm) (R); 13:42 BP 145 / 71; Pulse 69; Resp 17; Pulse Ox 98% on R/A; Pain 10/10; ld1 15:28 BP 140 / 77; Pulse 89; Resp 18; Pulse Ox 100% on R/A; Pain 9/10; ld1 16:15 BP 139 / 75; Pulse 94; Resp 18; Pulse Ox 100% on R/A; ld1 13:00 Body Mass Index 21.77 (74.84 kg, 185.42 cm) aa5 ED Course: 12:30 Patient arrived in ED. ds1 13:00 Arm band placed on. aa5 13:01 Triage completed. aa5 13:16 Jann Webber MD is Attending Physician. kdr 13:42 Patient has correct armband on for positive identification. Placed in gown. Bed in low ld1 position. Call light in reach. Side rails up X2. conveyor monitor on. Pulse ox on. NIBP on. Door closed. Noise minimized. Warm blanket given. 13:42 No provider procedures requiring assistance completed. ld1 14:24 Basic Metabolic Panel Sent. ld1 14:24 CBC with Diff Sent. ld1 14:24 LFT's Sent. ld1 14:24 Magnesium Sent. ld1 14:24 NT PRO-BNP Sent. ld1 14:24 PT-INR Sent. ld1 14:24 Troponin (emerg Dept Use Only) Sent. ld1 14:25 Inserted saline lock: 20 gauge in right antecubital area, using aseptic technique. ld1 Blood collected. 15:16 XRAY Chest (1 view) In Process Unspecified. EDMS 16:20 Sakina Gr, TRAVIS is Primary Nurse. ld1 16:46 IV discontinued, intact, bleeding controlled, No redness/swelling at site. ld1 Administered Medications: 14:24 Drug: SOLU-Medrol (methylPrednisoLONE) 125 mg Route: IVP; Site: right antecubital; ld1 15:42 Follow up: Response: No adverse reaction ld1 14:24 Drug: Ketorolac 15 mg Route: IVP; Site: right antecubital; ld1 15:43 Follow up: Response: No adverse reaction ld1 14:29 Drug: Albuterol - atroVENT (ipratropium) (3:1) (2.5 mg - 0.5 mg) 3 ml Route: Nebulizer; ld1 15:42 Follow up: Response: No adverse reaction ld1 15:42 Drug: Zofran (Ondansetron) 4 mg Route: IVP; Site: right antecubital; ld1 15:43 Follow up: Response: No adverse reaction ld1 15:42 Drug: morphine 4 mg Route: IVP; Site: right antecubital; ld1 15:43 Follow up: Response: No adverse reaction ld1 Outcome: 16:39 Discharge ordered by . kdr 16:46 Discharged to home ambulatory. ld1 16:46 Condition: stable 16:46 Discharge instructions given to patient, family, Instructed on discharge instructions, follow up and referral plans. medication usage, Demonstrated understanding of instructions, follow-up care, medications, Prescriptions given X 3. 16:46 Patient left the ED. ld1 Signatures: Dispatcher [employer] EDAL Jann Webber MD MD kdr Sanford, Demi ds1 Mary Lezama, RN RN aa5 Sakina Gr, RN RN ld1
--- NOTE | 2021-03-25 16:40 | EDPHYS ---
Physician Documentation [facility] Name: Zheng Nicholas Age: 55 yrs Sex: Male : 1965 Arrival Date: 03/25/2021 Time: 12:30 Bed 27 Private MD: ED Physician Jann Webber Historical: - Allergies: 03/25 13:01 No Known Allergies; aa5 - PMHx: 13:01 None; aa5 - PSHx: 13:01 mass removed from testicles; aa5 - Immunization history:: Client reports having NOT received the Covid vaccine. - Social history:: Smoking status: Patient denies any tobacco usage or history of. Vital Signs: 13:00 BP 129 / 77; Pulse 71; Resp 18 S; Temp 99.3(TE); Pulse Ox 100% on R/A; Weight 74.84 kg aa5 (R); Height 6 ft. 1 in. (185.42 cm) (R); 13:42 BP 145 / 71; Pulse 69; Resp 17; Pulse Ox 98% on R/A; Pain 10/10; ld1 15:28 BP 140 / 77; Pulse 89; Resp 18; Pulse Ox 100% on R/A; Pain 9/10; ld1 16:15 BP 139 / 75; Pulse 94; Resp 18; Pulse Ox 100% on R/A; ld1 13:00 Body Mass Index 21.77 (74.84 kg, 185.42 cm) aa5 MDM: 16:39 Patient medically screened. [facility] [address] 03/25 14:08 Order name: Basic Metabolic Panel; Complete Time: 16:22 [facility] [address] 03/25 14:08 Order name: CBC with Diff; Complete Time: 16:22 [facility] [address] 03/25 14:08 Order name: LFT's; Complete Time: 16:22 [facility] [address] 03/25 14:08 Order name: Magnesium; Complete Time: 16:22 [facility] [address] 03/25 14:08 Order name: NT PRO-BNP; Complete Time: 16:22 [facility] [address] 03/25 14:08 Order name: PT-INR; Complete Time: 16:22 [facility] [address] 03/25 14:08 Order name: Troponin (emerg Dept Use Only); Complete Time: 16:22 [facility] [address] 03/25 14:08 Order name: XRAY Chest (1 view); Complete Time: 16:22 [facility] [address] 03/25 14:08 Order name: EKG; Complete Time: 14:09 kdr 03/25 14:08 Order name: Cardiac monitoring; Complete Time: 14:13 kdr 03/25 14:08 Order name: EKG - Nurse/Tech; Complete Time: 14:24 kdr 03/25 14:08 Order name: IV Saline Lock; Complete Time: 14:25 kdr 03/25 14:08 Order name: Labs collected and sent; Complete Time: 14:25 kdr 03/25 14:08 Order name: O2 Per Protocol; Complete Time: 14:13 kdr 03/25 14:08 Order name: O2 Sat Monitoring; Complete Time: 14:13 kdr Administered Medications: 14:24 Drug: SOLU-Medrol (methylPrednisoLONE) 125 mg Route: IVP; Site: right antecubital; ld1 15:42 Follow up: Response: No adverse reaction ld1 14:24 Drug: Ketorolac 15 mg Route: IVP; Site: right antecubital; ld1 15:43 Follow up: Response: No adverse reaction ld1 14:29 Drug: Albuterol - atroVENT (ipratropium) (3:1) (2.5 mg - 0.5 mg) 3 ml Route: Nebulizer; ld1 15:42 Follow up: Response: No adverse reaction ld1 15:42 Drug: Zofran (Ondansetron) 4 mg Route: IVP; Site: right antecubital; ld1 15:43 Follow up: Response: No adverse reaction ld1 15:42 Drug: morphine 4 mg Route: IVP; Site: right antecubital; ld1 15:43 Follow up: Response: No adverse reaction ld1 Disposition Summary: 03/25/21 16:39 Discharge Ordered Location: Home kdr Problem: new kdr Symptoms: have improved kdr Condition: Stable kdr Diagnosis - Pleurisy kdr - Chest pain on breathing kdr - Chest pain, unspecified kdr Followup: kdr - With: Private Physician - When: 2 - 3 days - Reason: If symptoms return, Further diagnostic work-up, Recheck today's complaints, Continuance of care, Re-evaluation by your physician Discharge Instructions: - Discharge Summary Sheet kdr - Costochondritis kdr - Pleurisy kdr - Chest Wall Pain, [id number] kdr - Nonspecific Chest Pain, Adult, [id number] kdr Forms: - Medication Reconciliation Form kdr - Thank You Letter kdr - Prescription Opioid Use kdr Prescriptions: - Ibuprofen 600 mg Oral Tablet - take 1 tablet by ORAL route every 6 hours As needed take with food; 30 tablet; kdr Refills: 0, Product Selection Permitted - Tramadol 50 mg Oral Tablet - take 1 tablet by ORAL route every 8 hours as needed; 12 tablet; Refills: 0, kdr Product Selection Permitted - Medrol (Cody) 4 mg Oral Tablets, Dose Pack - take 1 tablet by ORAL route as directed - follow package instructions; 1 kdr packet; Refills: 0, Product Selection Permitted Signatures: Dispatcher [employer] Jann Thomas MD MD kdr Mary Lezama RN RN aa5 Sakina Gr RN RN ld1
[2021-03-25 16:53] VITALS: TEMP 99.3
[2021-03-25 16:56] VITALS: BP 139/75; O2SAT 100
--- NOTE | 2021-03-26 10:59 | EKG ---
Test Date: 2021-03-25 Test Time: 14:21:39 Well Service Floorperson: KWADWO MEASUREMENT RESULTS: Intervals: Rate: 67 MT: 150 QRSD: 80 QT: 400 QTc: 422 Greig: P: 69 MT: 150 QRS: -10 T: -35 INTERPRETIVE STATEMENTS: Normal sinus rhythm Septal infarct, age undetermined Abnormal ECG Compared to ECG 11/02/2020 12:55:47 Left-axis deviation no longer present Myocardial infarct finding still present Electronically Signed On 03-26-21 10:56:58 CDT by Kaiden Claros
== END 2021-03-25 16:46 | disposition home or self-care (01) ==
LOC: ER 12:28
DX: R09.1 Pleurisy (principal); R07.1 Chest pain on breathing
CPT/HCPCS: 93005; 85025; 80048; 36415; 83735; 85610; 80076; 84484; 83880; 71045; 96375; 96374; 99285; J2930; J2405

== ENCOUNTER 2022-12-03 20:34 | Emergency (ER) | payer OTHER ==
--- OUTSIDE RECORDS SUMMARY | 2022-12-03 20:37 | XMS REPORT | Continuity of Care Document ---
:1965 Author Organization [facility] t Address [address] [place] [address] Care Team Providers Name Role Phone Amy Love Attending Clinician Unavailable Payers Payer Name Policy Type Policy Number Effective Date Expiration Date S geraldo CIG[employer] C1 [id number] [facility] Problems Condition Condition Condition Status Onset Resolution Last Treating Co mments Source Name Details Category Date Date Treatment Clinician Date [id number] Right Problem Active Common hydrocele [facility] [id number] Urethral Problem Active Common discharge [facility] [id number] Yeast Problem Active Common dermatitis [facility] [place] Allergies, Adverse Reactions, Alerts This patient has no known allergies or adverse reactions. Social History Social Habit Start Date Stop Date Quantity Comments Source History of Tobacco Current Smoker [facility] Use [facility] Sex Assigned At Com mon [facility] Smoking Status Start Date Stop Date Source Current Smoker 2020-11-19 00:00:00 [facility] Medications Ordered Filled Start Stop Current Ordering Indication Dosage Frequency Signature Comments Components Source Medication Medication Date Date Medication? Clinician (SIG) Name Name Azithromveronicai Normithromveronicai 2020- No 1{table QD Azithromyc n 500 MG n 500 MG 11-19 t} in 500 MG 00:00: 00:00 00 :00 Suprax 400 Suprax 400 2020- No 1{capsu QD Suprax 400 MG MG 11-19 le} MG 00:00: 00:00 00 :00 Clotrimazol Clotrimazol 202- No 1{appli BID Clotrimazo e-Betametha e-Betametha 11-15 cation} le-Betamet sone 1-0.05 sone 1-0.05 00:00: 00:00 hasone % % 00 :00 1-0.05 % Clotrimazol Clotrimazol 2021- No 1{appli BID Clotrimazo e-Betametha e-Betametha 11-15 cation} le-Betamet sone 1-0.05 sone 1-0.05 00:00: 00:00 hasone % % 00 :00 1-0.05 % Azithromyci Azithromyci 2020- No 1{table QD Azithromyc n 500 MG n 500 MG 11-15 t} in 500 MG 00:00: 00:00 00 :00 Azithromyci Azithromyci 2020- No 1{table QD Azithromyc n 500 MG n 500 MG 11-15 t} in 500 MG 00:00: 00:00 00 :00 Amoxicillin Amoxicillin 0 2020- No 1{table BID Amoxicilli -Pot -Pot 09-05 t} n-Pot Clavulanate Clavulanate 00:00: 00:00 Clavulanat 875-125 MG 875-125 MG 00 :00 e 875-125 MG Amoxicillin Amoxicillin 0 2020- No 1{table BID Amoxicilli -Pot -Pot 09-05-03 t} n-Pot Clavulanate Clavulanate 00:00: 00:00 Clavulanat 875-125 MG 875-125 MG 00 :00 e 875-125 MG No Known No Known No Common Medications Medications S [facility] No Known No Known No Common Medications Medications S [facility] Immunizations Ordered Immunization Filled Immunization Date Status Commen ts Source Name Name Wai Carreno 2020-11-15 Completed [facility] (Ceftriaxone) 11:15:00 - [facility] Wai Carreno 2020-11-15 Completed [facility] (Ceftriaxone) (Ceftriaxone) 11:15:00 [facility] Vital Signs Vital Name Observation Time Observation Value Comments Source height 2020-11-19 14:30:00 73 [in_i] [facility] weight 2020-11-19 14:30:00 170 [lb_av] [facility] temperature 2020-11-19 14:30:00 98.1 [degF] [facility] bmi 2020-11-19 14:30:00 22.43 kg/m2 [facility] oximetry 2020-11-19 14:30:00 98 % [facility] blood pressure 2020-11-19 14:30:00 105 mm[Hg] [facility] systolic [facility] blood pressure 2020-11-19 14:30:00 61 mm[Hg] [facility] diastolic [facility] height 2020-11-15 09:45:00 73 [in_i] [facility] weight 2020-11-15 09:45:00 175 [lb_av] [facility] temperature 2020-11-15 09:45:00 98.9 [degF] [facility] bmi 2020-11-15 09:45:00 23.09 kg/m2 [facility] oximetry 2020-11-15 09:45:00 97 % Common [facility] blood pressure 2020-11-15 09:45:00 107 mm[Hg] [facility] blood pressure 2020-11-15 09:45:00 72 mm[Hg] [facility] diastolic [facility] height 2020-08-30 15:30:00 73 [in_i] [facility] weight 2020-08-30 15:30:00 162.4 [lb_av] Common [facility] temperature 2020-08-30 15:30:00 98.2 [degF] Common [facility] bmi 2020-08-30 15:30:00 21.42 kg/m2 Common S [facility] oximetry 2020-08-30 15:30:00 97 % Common S [facility] blood pressure 2020-08-30 15:30:00 112 mm[Hg] [facility] systolic [facility] blood pressure 2020-08-30 15:30:00 79 mm[Hg] [facility] diastolic [facility] height 2020-08-21 09:30:00 73 [in_i] [facility] weight 2020-08-21 09:30:00 164.2 [lb_av] [facility] temperature 2020-08-21 09:30:00 98.0 [degF] Common [facility] bmi 2020-08-21 09:30:00 21.66 kg/m2 Common [facility] oximetry 2020-08-21 09:30:00 100 % Common [facility] blood pressure 2020-08-21 09:30:00 132 mm[Hg] [facility] blood pressure 2020-08-21 09:30:00 74 mm[Hg] Common [facility] - diastolic [facility] Procedures This patient has no known procedures. Encounters Start End Encounter Admission Attending Care Care Encounter Source Date/Time Date/Time Type Type Clinicians Facility Department ID 2021-07-[address] [facility] [id number] Common 13:47:16 Amy [id number] [facility] 2021-07[id number] 13:12:21 Amy [id number] [facility] 2021-07-[address] [facility] [id number] Common 13:11:40 Amy [id number] [facility] 2021-07-10 Outpatient Ivan, STLMLC STLMLC [id number] Common 13:08:06 Amy [id number] [facility] 2021-07-10 Outpatient STLMLC STLMLC [id number] Common 12:37:41 [id number] [facility] 2020-11-19 2020-11-19 OFFICE STLMLC STLMLC [id number] Co mmon 00:00:00 00:00:00 VISIT [facility] PT LEVEL 3 - [facility] 2020-11-15 2020-11-15 OFFICE STLMLC STLMLC [id number] Co mmon 00:00:00 00:00:00 VISIT [facility] PT - [facility] LEVEL 4 [facility] 2020-09-07 2020-09-07 (TEL) STLMLC STLMLC [id number] Co mmon 00:00:00 00:00:00 [facility] 2020-09-05 2020-09-05 (TEL) STLMLC STLMLC [id number] Co mmon 00:00:00 00:00:00 [facility] 2020-08-30 2020-08-30 OFFICE STLMLC STLMLC [id number] Co mmon 00:00:00 00:00:00 VISIT [facility] PT - [facility] LEVEL 4 [facility] 2020-08-21 2020-08-21 OFFICE STLMLC STLMLC [id number] Co mmon 00:00:00 00:00:00 VISIT NEW [facility] it PT LEVEL 3 [facility] Results This patient has no known results.
[2022-12-03 21:30] LABS: Absolute Lymphocytes (CBC) 2.7 K/uL (0.7-4.9); Hematocrit 30.8 % (39.6-49.0); Lymphocytes % 44.5 % (15.3-44.8); MPV 6.9 fL (7.6-11.3); RBC Red Blood Cell Count 3.18 M/uL (4.33-5.43)
[2022-12-03 21:49] LABS: Potassium 3.5 mEq/L (3.5-5.1); Troponin High Sensitivity 10.9 pg/mL (<58.9); Uric Acid 5.2 mg/dL (3.5-7.2)
[2022-12-03 21:50] LABS: Specific Gravity < 1.005 (1.005-1.030); Urine Bacteria <20 /HPF (<20); Urine Bilirubin NEGATIVE (Negative); Urine Blood Negative (Negative); Urine Clarity Turbid (Clear); Urine Color Colorless (Yellow); Urine Glucose NEGATIVE (Negative); Urine Protein NEGATIVE (Negative); Urine RBC <5 /HPF (None Seen); Urine Urobilinogen Normal (Normal); Urine pH 5.5 (5.0-7.0)
--- NOTE | 2022-12-03 21:56 | RAD REPORT ---
EXAM DESCRIPTION: ELANAChest Single View12/03/2022 9:38 pm CLINICAL HISTORY: SWELLING COMPARISON: Chest Single View dated 03/25/2021; Chest Pa And Lat (2 Views) dated 11/02/2020; Chest Pa And Lat (2 Views) dated 08/29/2019; CHEST PA AND LAT 2 VIEW dated 09/18/2010 TECHNIQUE: Portable AP view of the chest. FINDINGS: The lungs are clear. No pneumothorax or effusion. The cardiomediastinal contours are unre markable. IMPRESSION: No acute cardiopulmonary process.
--- NOTE | 2022-12-03 21:58 | RAD REPORT ---
EXAM DESCRIPTION: US - Extrem Venous W Compress Neftali - 12/03/2022 9:51 pm CLINICAL HISTORY: Swelling COMPARISON: None. TECHNIQUE: Real-time sonographic evaluation of the bilateral lower extremity deep venous systems was performed. FINDINGS: Normal compressibility, flow augmentation, phasic flow and spontaneous flow is identified in both the left and right lower extremity deep venous systems. No intraluminal filling defects seen. Right popliteal fossa cyst measuring 2.6 x 1.2 x 0.6 centimeter, with coarse calcification along it s margin. IMPRESSION: No DVT in either lower extremity. Right popliteal fossa cyst with calcification.
[2022-12-03 22:36] LABS: Barbiturates NEGATIVE (NEGATIVE); Benzodiazepines NEGATIVE (NEGATIVE); Cocaine NEGATIVE (NEGATIVE); METHAMPHETAM NEGATIVE (NEGATIVE); Methadone NEGATIVE (NEGATIVE); Opiates POSITIVE (NEGATIVE); Phencyclidine NEGATIVE (NEGATIVE); THC Cannibis POSITIVE (NEGATIVE)
[2022-12-03] MEDS ORDERED: NA CHLORIDE 0.9% 500 ML ONE (23:03)
--- NOTE | 2022-12-03 23:37 | EDPHYS ---
Physician Documentation [facility] Name: Zheng Nicholas Age: 57 yrs Sex: Male : 1965 Arrival Date: 12/03/2022 Time: 20:34 Bed 13 Private MD: ED Physician Devante Hearn HPI: 12/03 20:53 This 57 yrs old Black Male presents to ER via Ambulatory with complaints of Leg jmm Swelling. 20:53 The patient presents with swelling. The complaints affect the right nesbitt. Onset: The jmm symptoms/episode began/occurred gradually, today. This is a 57 year old male with no chronic medical conditions that presents to the ED with complaints of right lower extremity swelling. Patient was seen yesterday for abdominal pain and prescribed protonix and carafate. Denies chest pain. . Historical: - Allergies: 21:21 No Known Allergies; vc1 - PMHx: 21:21 None; vc1 - PSHx: 20:47 mass removed from testicles; kd3 - Immunization history:: Adult Immunizations up to date. - Social history:: Smoking status: Patient reports the use of cigarette tobacco products, smokes one pack cigarettes per day. ROS: 20:53 Constitutional: Negative for fever, chills, and weight loss, Cardiovascular: Negative jmm for chest pain, palpitations, and edema, Respiratory: Negative for shortness of breath, cough, wheezing, and pleuritic chest pain. 20:53 MS/extremity: Positive for swelling. 20:53 All other systems are negative. Exam: 20:53 Constitutional: This is a well developed, well nourished patient who is awake, alert, jmm and in no acute distress. Head/Face: atraumatic. Eyes: EOMI, no conjunctival erythema appreciated ENT: Moist Mucus Membranes Neck: Trachea midline, Supple Chest/axilla: Normal chest wall appearance and motion. Cardiovascular: Regular rate and rhythm. No edema appreciated Respiratory: Normal respirations, no respiratory distress appreciated Abdomen/GI: Non distended Back: Normal ROM Skin: General appearance color normal 20:53 Musculoskeletal/extremity: edema noted to the right lower extremity, compartments are soft, full dorsalis pulse, NVI. 20:53 Skin: Appearance: Color: normal in color. 20:53 Neuro: Orientation: is normal, Mentation: is normal, Memory: is normal. 20:53 Psych: Behavior/mood is pleasant, cooperative. Vital Signs: 20:43 BP 92 / 61; Pulse 81; Resp 24 S; Temp 98.2(O); Pulse Ox 99% on R/A; Weight 74.84 kg; kd3 Height 6 ft. 1 in. ; 22:15 BP 100 / 63; Pulse 66; Resp 14; Pulse Ox 100% ; vc1 23:00 BP 101 / 58; Pulse 59; Resp 15; Pulse Ox 99% ; vc1 23:30 BP 111 / 71; Pulse 69; Resp 20; Pulse Ox 98% ; vc1 20:43 Body Mass Index 21.77 (74.84 kg, 185.42 cm) kd3 MDM: 20:53 Patient medically screened. [facility] 23:35 Differential diagnosis: edema, chf, cellulitis. Data reviewed: vital signs, nurses [facility] notes, lab test result(s), radiologic studies, ultrasound. Counseling: I had a detailed discussion with the patient and/or guardian regarding: the historical points, exam findings, and any diagnostic results supporting the discharge/admit diagnosis, lab results, radiology results, the need for outpatient follow up, to return to the emergency department if symptoms worsen or persist or if there are any questions or concerns that arise at home. ED course: . 12/03 21:02 Order name: Basic Metabolic Panel; Complete Time: 21:56 [facility] 12/03 21:02 Order name: CBC with Diff; Complete Time: 21:45 [facility] 12/03 21:02 Order name: NT PRO-BNP; Complete Time: 21:56 [facility] 12/03 21:02 Order name: Troponin HS; Complete Time: 21:56 [facility] 12/03 21:02 Order name: Urinalysis w/ reflexes; Complete Time: 21:56 [facility] 12/03 21:02 Order name: UDS; Complete Time: 22:47 [facility] 12/03 21:31 Order name: Uric Acid; Complete Time: 21:56 [facility] 12/03 21:02 Order name: XRAY Chest (1 view); Complete Time: 21:57 [facility] 12/03 21:02 Order name: US Extremity Venous W Compression Neftali; Complete Time: 21:59 [facility] 12/03 21:02 Order name: EKG; Complete Time: 21:02 [facility] 12/03 21:02 Order name: Cardiac monitoring; Complete Time: 22:14 [facility] 12/03 21:02 Order name: EKG - Nurse/Tech; Complete Time: 22:14 [facility] 12/03 21:02 Order name: IV Saline Lock; Complete Time: : [facility] 12/03 21:02 Order name: Labs collected and sent; Complete Time: : [facility] 12/03 21:02 Order name: O2 Per Protocol; Complete Time: : [facility] 12/03 21:02 Order name: O2 Sat Monitoring; Complete Time: : [facility] Administered Medications: 22:59 Drug: NS 0.9% IV 500 ml Route: IV; Rate: bolus; Site: right antecubital; vc1 Disposition Summary: 12/03/22 23:36 Discharge Ordered Location: Home [facility] Condition: Stable [facility] Diagnosis - Localized edema [facility] - Synovial cyst of popliteal space [Fitch], right knee [facility] Followup: [facility] - With: Private Physician - When: 2 - 3 days - Reason: Recheck today's complaints, Continuance of care, Re-evaluation by your physician Followup: [facility] - With: Manuel Cabrera MD - When: 2 - 3 days - Reason: Recheck today's complaints, Continuance of care, Re-evaluation by your physician Discharge Instructions: - Discharge Summary Sheet [facility] - Fitch Cyst [facility] - Peripheral Edema [facility] Forms: - Medication Reconciliation Form [facility] - Thank You Letter [facility] - Antibiotic Education [facility] - Prescription Opioid Use [facility] Signatures: Dispatcher [employer] EDMS Souleymane Carrizales PA PA jmm Doucette, Kyli, RN RN kd3 Rachell Ford RN RN vc1 Corrections: (The following items were deleted from the chart) 21:31 21:21 URIC ACID+C.LAB.BRZ ordered. EDMS EDMS
--- NOTE | 2022-12-03 23:37 | ER ---
Nurse's Notes [facility] Name: Zheng Nicholas Age: 57 yrs Sex: Male : 1965 Arrival Date: 12/03/2022 Time: 20:34 Bed 13 Private MD: Diagnosis: Localized edema;Synovial cyst of popliteal space [Fitch], right knee Presentation: 12/03 20:44 Chief complaint: Patient states: I went to the Er across the street for stomach issues kd3 and they sent me home with two prescriptions that I got yesterday and now my legs are swelling. The swelling in my legs started 7 or 8 hours ago. Coronavirus screen: Vaccine status: Patient reports being unvaccinated. Ebola Screen: No symptoms or risks identified at this time. Initial Sepsis Screen: Does the patient meet any 2 criteria? No. Patient's initial sepsis screen is negative. Does the patient have a suspected source of infection? No. Patient's initial sepsis screen is negative. Risk Assessment: Do you want to hurt yourself or someone else? Patient reports no desire to harm self or others. Onset of symptoms was December 03, 2022. 20:44 Method Of Arrival: Ambulatory kd3 20:44 Acuity: DENISA 3 kd3 Triage Assessment: 20:47 General: Appears uncomfortable, Behavior is calm, cooperative. Pain: Complains of pain kd3 in right leg and left leg. Historical: - Allergies: 21:21 No Known Allergies; vc1 - PMHx: 21:21 None; vc1 - PSHx: 20:47 mass removed from testicles; kd3 - Immunization history:: Adult Immunizations up to date. - Social history:: Smoking status: Patient reports the use of cigarette tobacco products, smokes one pack cigarettes per day. Screenin:18 [facility] ED Fall Risk Assessment (Adult) History of falling in the last 3 months, vc1 including since admission No falls in past 3 months (0 pts) Confusion or Disorientation No (0 pts) Intoxicated or Sedated Yes (3 pts) Impaired Gait No (0 pts) Mobility Assist Device Used No (0 pt) Altered Elimination No (0 pt) Score/Fall Risk Level 3 or more points = High Risk Oriented to surroundings, Maintained a safe environment, Educated pt \T\ family on fall prevention, incl call for assistance when getting out of bed. Abuse screen: Denies threats or abuse. Nutritional screening: No deficits noted. Tuberculosis screening: No symptoms or risk factors identified. Assessment: 21:19 General: Appears in no apparent distress. uncomfortable, Behavior is calm, cooperative, vc1 appropriate for age, Smells of alcohol. Pain: Complains of pain in right leg and left leg Quality of pain is described as pressure, Pain began gradually, Alleviated by rest, repositioning, Aggravated by increased activity, weight bearing. Neuro: Level of Consciousness is awake, alert, obeys commands, Oriented to person, place, time, situation, Appropriate for age. Cardiovascular: Patient's skin is warm and dry. Edema is 2+ to left ankle, left foot, right ankle and right foot. Respiratory: Airway is patent Respiratory effort is even, unlabored, Respiratory pattern is regular, symmetrical. GI: No deficits noted. No signs and/or symptoms were reported involving the gastrointestinal system. : No deficits noted. No signs and/or symptoms were reported regarding the genitourinary system. EENT: No deficits noted. No signs and/or symptoms were reported regarding the EENT system. Derm: No deficits noted. No signs and/or symptoms reported regarding the dermatologic system. Musculoskeletal: Reports pain in right leg and left leg. 22:00 Reassessment: No changes from previously documented assessment. Patient and/or family vc1 updated on plan of care and expected duration. Pain level reassessed. Patient is alert, oriented x 3, equal unlabored respirations, skin warm/dry/pink. 23:00 Reassessment: No changes from previously documented assessment. Patient and/or family vc1 updated on plan of care and expected duration. Pain level reassessed. Patient is alert, oriented x 3, equal unlabored respirations, skin warm/dry/pink. 23:58 Reassessment: No changes from previously documented assessment. Patient and/or family vc1 updated on plan of care and expected duration. Pain level reassessed. Patient is alert, oriented x 3, equal unlabored respirations, skin warm/dry/pink. Vital Signs: 20:43 BP 92 / 61; Pulse 81; Resp 24 S; Temp 98.2(O); Pulse Ox 99% on R/A; Weight 74.84 kg; kd3 Height 6 ft. 1 in. ; 22:15 BP 100 / 63; Pulse 66; Resp 14; Pulse Ox 100% ; vc1 23:00 BP 101 / 58; Pulse 59; Resp 15; Pulse Ox 99% ; vc1 23:30 BP 111 / 71; Pulse 69; Resp 20; Pulse Ox 98% ; vc1 20:43 Body Mass Index 21.77 (74.84 kg, 185.42 cm) kd3 ED Course: 20:38 Patient arrived in ED. 3 20:39 Souleymane Carrizales PA is PHCP. [facility] 20:39 Devante Hearn MD is Attending Physician. jmm 20:47 Triage completed. kd3 20:47 Arm band placed on left wrist. kd3 21:00 Patient has correct armband on for positive identification. Bed in low position. Call vc1 light in reach. Client placed on continuous cardiac and pulse oximetry monitoring. NIBP monitoring applied. 21:15 Inserted saline lock: 20 gauge in right antecubital area, using aseptic technique. vc1 Blood collected. 21:40 XRAY Chest (1 view) In Process Unspecified. EDMS 21:52 US Extremity Venous W Compression Neftali In Process Unspecified. EDMS 22:42 Rachell Ford, TRAVIS is Primary Nurse. vc1 23:37 Manuel Cabrera MD is Referral Physician. [facility] 23:58 No provider procedures requiring assistance completed. IV discontinued, intact, vc1 bleeding controlled, No redness/swelling at site. Pressure dressing applied. Administered Medications: 22:59 Drug: NS 0.9% IV 500 ml Route: IV; Rate: bolus; Site: right antecubital; vc1 Medication: 21:19 VIS not applicable for this client. vc1 Outcome: 23:36 Discharge ordered by . [facility] 23:58 Discharged to home ambulatory. vc1 23:58 Condition: good 23:58 Discharge instructions given to patient, Instructed on discharge instructions, follow up and referral plans. Demonstrated understanding of instructions, follow-up care. 23:58 Patient left the ED. vc1 Signatures: Dispatcher [employer] EDMS Souleymane Carrizales PA PA jmm Gomez, Alice 3 Chrissie Valderrama RN RN kd3 Rachell Ford, TRAVIS RN vc1 Corrections: (The following items were deleted from the chart) 20:48 20:44 Acuity: DENISA 3 kd3 kd3
[2022-12-04 01:04] VITALS: TEMP 98.2
[2022-12-04 01:47] VITALS: BP 100/63; O2SAT 100
--- NOTE | 2022-12-04 17:41 | EKG ---
Test Date: 2022-12-03 Test Time: 22:03:31 Refrigerating Oiler: HARRY MEASUREMENT RESULTS: Intervals: Rate: 63 AK: 160 QRSD: 90 QT: 430 QTc: 440 [place]: P: 73 AK: 160 QRS: 0 T: -79 INTERPRETIVE STATEMENTS: Normal sinus rhythm ST & T wave abnormality, consider inferior ischemia Abnormal ECG Compared to ECG 03/25/2021 14:21:39 ST (T wave) deviation now present Possible ischemia now present Myocardial infarct finding no longer present Electronically Signed On 12-04-22 17:39:22 CDT by Marco A Shay
== END 2022-12-03 23:58 | disposition home or self-care (01) ==
LOC: ER 20:34
DX: R60.0 Localized edema (principal); M71.21 Synovial cyst of popliteal space [Baker], right knee
CPT/HCPCS: 85025; 81001; 80048; 36415; 84550; 84484; 83880; 80307; 71045; 93970; J7040; 93005

== ENCOUNTER 2023-09-21 09:37 | Observation (INO) | payer OTHER, SELFPAY ==
--- OUTSIDE RECORDS SUMMARY | 2023-09-21 09:41 | XMS REPORT | Continuity of Care Document ---
Author Name Unknown Address [address] [facility] [place] [address] [facility] Address [address] [facility] [address] [place] [address] Care Team Providers Care Human Resources Intern Name Role Phone PCP, PATIENT DOES NOT HAVE A Primary Care Physic Amy Hadley Attending Clinician ANAM Link Attending Clinician ZEKE Pimentel Attending Clinician Zeke Gaytan MD Attending Clinician [phone] Payers Payer Name Policy Type Policy Number Effective Date Expirati on Date Source CIGNA II [id number] 2022 00:00:00 [employer] C1 [id number] [facility] Problems Condition Name Condition Details Condition Category Status Onset Date Resolution Date Last Treatment Date Treating Clinician Comments Source [id number] Right hydrocele Problem Active [facility] [id number] Urethral discharge Problem Active [facility] [id number] Yeast dermatitis of penis Problem Active [facility] Allergies, Adverse Reactions, Alerts Allergy Name Allergy Type Status Severity Reaction(s) Onset Date Inactive Date Treating Clinician Comments Source NO KNOWN ALLERGIE S Drug Class Active [facility] Social History Social Habit Start Date Stop Date Quantity Comments Source Sexual orientation U [facility] History of Tobacco Use Current Smoker [facility] History of Social function 2023-04-06 00:00:2023-04-06 00:00:00 [facility] Sex Ass[birth year] At 1965 00:00:00 1965 00:00:00 [facility] Smoking Status Start Date Stop Date Source Tobacco smoking consumption unknown [facility] Current Smoker 2020-11-19 00:00:00 [facility] Medications Ordered Medication Name Filled Medication Name Start Date Stop Date Current Medication? Ordering Clinician Indication Dosage Frequency Signature (SIG) Comments Components Source CEPHALEXIN ORAL 2022-06 14:35: 04 Yes Take by mouth. [facility] Azithromyci n 500 MG Azithromyci n 500 MG 11-19 00:00: 00 11-22 00:00 :00 No 1{table t} QD Azithromyc in 500 MG Suprax 400 MG Suprax 400 MG 11-19 00:00: 00 11-20 00:00 :00 No 1{capsu le} QD Suprax 400 MG Clotrimazol e-Betametha sone 1-0.05 % Clotrimazol e-Betametha sone 1-0.05 % 11-15 00:00: 00 12-06 00:00 :00 No 1{appli cation} BID Clotrimazo le-Betamet hasone 1-0.05 % Azithromyci n 500 MG Azithromyci n 500 MG 11-15 00:00: 00 11-22 00:00 :00 No 1{table t} QD Azithromyc in 500 MG Amoxicillin -Pot Clavulanate 875-125 MG Amoxicillin -Pot Clavulanate 875-125 MG 09-05 00:00: 00 09-15 00:00 :00 No 1{table t} BID Amoxicilli n-Pot Clavulanat e 875-125 MG No Known Medications No Known Medications No [facility] Vital Signs Vital Name Observation Time Observation Value Comments S geraldo Systolic blood pressure 2023-04-06 19:32:00 116 mm[Hg] [facility] Diastolic blood pressure 2023-04-06 19:32:00 73 mm[Hg] [facility] Heart rate 2023-04-06 19:32:00 93 /min [facility] Body temperature 2023-04-06 19:32:00 36.39 Alie [facility] Respiratory rate 2023-04-06 19:32:00 18 /min [facility] Body height 2023-04-06 19:32:00 185.4 cm [facility] Body weight 2023-04-06 19:32:00 67.132 kg [facility] BMI 2023-04-06 19:32:00 19.53 kg/m2 [facility] Oxygen saturation in Arterial blood by Pulse oximetry 2023-04-06 19:32:00 99 /min [facility] height 2020-11-19 14:30:00 73 [in_i] Commo n [facility] weight 2020-11-19 14:30:00 170 [lb_av] Comm on [facility] temperature 2020-11-19 14:30:00 98.1 [degF] Com [facility] bmi 2020-11-19 14:30:00 22.43 kg/m2 Comm on [facility] oximetry 2020-11-19 14:30:00 98 % Commo n [facility] blood pressure systolic 2020-11-19 14:30:00 105 mm[Hg] Common [facility] blood pressure diastolic 2020-11-19 14:30:00 61 mm[Hg] Common [facility] height 2020-11-15 09:45:00 73 [in_i] Commo n [facility] weight 2020-11-15 09:45:00 175 [lb_av] Comm on [facility] temperature 2020-11-15 09:45:00 98.9 [degF] Com mon [facility] bmi 2020-11-15 09:45:00 23.09 kg/m2 Comm on [facility] oximetry 2020-11-15 09:45:00 97 % Commo n [facility] blood pressure systolic 2020-11-15 09:45:00 107 mm[Hg] [facility] blood pressure diastolic 2020-11-15 09:45:00 72 mm[Hg] [facility] height 2020-08-30 15:30:00 73 [in_i] Commo n [facility] weight 2020-08-30 15:30:00 162.4 [lb_av] Co mmon [facility] temperature 2020-08-30 15:30:00 98.2 [degF] Com mon [facility] bmi 2020-08-30 15:30:00 21.42 kg/m2 Comm on [facility] oximetry 2020-08-30 15:30:00 97 % Commo n [facility] blood pressure systolic 2020-08-30 15:30:00 112 mm[Hg] [facility] blood pressure diastolic 2020-08-30 15:30:00 79 mm[Hg] [facility] height 2020-08-21 09:30:00 73 [in_i] Commo n [facility] weight 2020-08-21 09:30:00 164.2 [lb_av] Co mmon [facility] temperature 2020-08-21 09:30:00 98.0 [degF] Com [facility] bmi 2020-08-21 09:30:00 21.66 kg/m2 Comm on [facility] oximetry 2020-08-21 09:30:00 100 % Commo n [facility] blood pressure systolic 2020-08-21 09:30:00 132 mm[Hg] [facility] blood pressure diastolic 2020-08-21 09:30:00 74 mm[Hg] [facility] Encounters Start Date/Time End Date/Time Encounter Type Admission Type Attending [facility] Facility Care Department Encounter ID Source 2021-07-10 13:47:16 Outpatient Amy Love [facility] [id number] [facility] 2021-07-10 13:12:21 Outpatient Amy Love [facility] [id number] [facility] 2021-07-10 13:11:40 Outpatient Amy Love [facility] [id number] [facility] 2021-07-10 13:08:06 Outpatient Amy Love [facility] [id number] [facility] 2021-07-10 12:37:41 Outpatient [facility] [id number] [facility] 2023-07-07 13:00:00 2023-07-07 13:00:00 Outpatient ANAM TOLENTINO [facility] [id number] [facility] 2023-04-06 14:30:00 2023-04-06 15:20:34 Outpatient ZEKE LOPES [facility] [id number] [facility] 2023-04-06 14:30:00 2023-04-06 15:20:34 Office Visit Zeke Nassar [facility] [id number] [facility] 2020-11-19 00:00:00 2020-11-19 00:00:00 OFFICE VISIT EST PT LEVEL 3 [facility] [id number] [facility] 2020-11-15 00:00:00 2020-11-15 00:00:00 OFFICE VISIT ESTAB PT LEVEL 4 [facility] [id number] [facility] 2020-09-07 00:00:00 2020-09-07 00:00:00 (TEL) [facility] [id number] [facility] 2020-09-05 00:00:00 2020-09-05 00:00:00 (TEL) [facility] [id number] [facility] 2020-08-30 00:00:00 2020-08-30 00:00:00 OFFICE VISIT ESTAB PT LEVEL 4 [facility] [id number] [facility] 2020-08-21 00:00:00 2020-08-21 00:00:00 OFFICE VISIT NEW PT LEVEL 3 [facility] [id number] [facility]
[2023-09-21] MEDS ORDERED: LEVALBUTEROL 1.25 MG/3 ML NEB ONE (09:53)
[2023-09-21 10:14] LABS: Absolute Lymphocytes (CBC) 0.8 K/uL (0.7-4.9); Absolute Monocytes 0.9 K/uL (0.1-1.3); Absolute Neutrophil 12.7 K/uL (1.8-8.0); Basophils % 0.3 % (0-1.3); Eosinophils % 0.1 % (0-4.4); Hemoglobin 12.3 g/dL (13.6-17.9); Lymphocytes % 5.8 % (15.3-44.8); MCH 32.7 pg (27.0-35.0); MCHC 33.3 g/dL (32.0-36.0); MCV 98.2 fL (80-100); MPV 7.3 fL (7.6-11.3); Neutrophils % 87.8 % (41.7-73.7); Nucleated Red Blood Cells % 0.1 % (0-0); Platelets 237 thou/uL (152-406); RBC Red Blood Cell Count 3.77 M/uL (4.33-5.43); Red Cell Distribution Width 13.8 % (12.1-15.2)
[2023-09-21 10:22] LABS: PT Prothrombin Time 10.7 SECONDS (9.5-12.5); Protime INR 0.97
[2023-09-21 10:34] LABS: Albumin 3.6 g/dL (3.4-5.0); Albumin/Globulin Ratio 0.8 (1.1-1.8); Anion Gap 11.1 mEq/L (5.0-15.0); Bilirubin Total 1.4 mg/dL (0.2-1.0); Globulin 4.4 g/dL (2.3-3.5); Potassium 3.1 mEq/L (3.5-5.1)
[2023-09-21 10:46] LABS: SARS-CoV-2 Antigen CONTROL BLUE LINE VIS/BG OK; SARS-CoV-2 Antigen Rapid Res Negative (Negative)
--- NOTE | 2023-09-21 10:57 | RAD REPORT ---
EXAM DESCRIPTION: [facility] Single View09/21/2023 10:36 am CLINICAL HISTORY: Cough;Dyspnea COMPARISON: Chest Single View dated 12/03/2022; Chest Single View dated 03/25/2021; Chest Pa And Lat (2 Views) dated 11/02/2020; Chest Pa And Lat (2 Views) dated 08/29/2019 TECHNIQUE: Portable AP view of the chest. FINDINGS: The lungs are clear. No pneumothorax or effusion. The cardiomediastinal contours are unre markable. IMPRESSION: No acute cardiopulmonary process.
[2023-09-21] MEDS ORDERED: NA CHLORIDE 0.9% 250 ML ONE (11:08)
[2023-09-21] MEDS ORDERED: AZITHROMYCIN 500 MG INJ IVPB ONE (11:08)
[2023-09-21] MEDS ORDERED: OSELTAMIVIR 75 MG CAP PO ONE (11:08)
[2023-09-21] MEDS ORDERED: CEFTRIAXONE 1000 MG/VIAL ONE (11:08)
[2023-09-21 11:52] LABS: Blood Morphology Comment NOT SEEN (NOT SEEN); Platelet Estimate ADEQ; White Blood Cell Scan OK (OK)
[2023-09-21 11:53] LABS: Dohle Bodies PRESENT
--- NOTE | 2023-09-21 12:50 | EDPHYS ---
Physician Documentation [facility] Name: Zheng Nicholas Age: 58 yrs Sex: Male : 1965 Arrival Date: 09/21/2023 Time: 09:37 Bed 8 Private MD: ED Physician Manjinder Heller HPI: 09/20 09:52 This 58 yrs old Black Male presents to ER via Unassigned with complaints of Shortness rn Of Breath, Chest Pain. 09:52 The patient has shortness of breath at rest, with light activity. Onset: The rn symptoms/episode began/occurred 2 day(s) ago. Duration: The symptoms are continuous. The patient's shortness of breath is aggravated by exertion, light activity, supine position. Severity of symptoms: At their worst the symptoms were moderate in the emergency department the symptoms are unchanged. The patient has not experienced similar symptoms in the past. The patient has not recently seen a physician. Patient reports shortness of breath with productive cough for 2 days. Has been feeling a little ill with runny nose and now cough. Patient reports shortness of breath that is worse with exertion and orthopnea. Has been sleeping sitting upright in the last 2 days. Reports subjective fever and chills. Not around anybody sick. No trauma. No history of DVT or PE. No hemoptysis. Is active smoker.. Historical: - Allergies: 10:09 No Known Allergies; ko1 - Immunization history:: Adult Immunizations unknown. - Infectious Disease History:: Denies. - Family history:: not pertinent. - Social history:: Smoking status: Patient reports the use of cigarette tobacco products, smokes one-half pack cigarettes per day. - Hospitalizations: : No recent hospitalization is reported. ROS: 09:52 Constitutional: Negative for fever, chills, and weight loss, ENT: Positive for runny rn nose Neck: Negative for injury, pain, and swelling, Cardiovascular: Negative for palpitations, and edema, Respiratory: Positive for productive cough and shortness of breath Abdomen/GI: Negative for abdominal pain, nausea, vomiting, diarrhea, and constipation, Back: Negative for injury and pain, MS/Extremity: Negative for injury and deformity, Skin: Negative for injury, rash, and discoloration, Neuro: Negative for headache, weakness, numbness, tingling, and seizure, Exam: 09:52 Constitutional: This is a well developed, well nourished patient who is awake, alert, rn and in no acute distress. Eyes: Pupils equal round and reactive to light, extra-ocular motions intact. ENT: No stridor, dry mucous membranes Cardiovascular: Regular rate and rhythm. No pulse deficits. Respiratory: Mild tachypnea with diminished breath sounds bilaterally with crackles as well. Faint expiratory wheezing. No retractions. Abdomen/GI: Soft, nontender Skin: Warm, dry MS/ Extremity: Pulses equal, no cyanosis. Neuro: Awake and alert, GCS 15 Vital Signs: 09:50 BP 130 / 85; Pulse 107; Resp 24; Temp 98.9; Pulse Ox 99% on R/A; ko1 11:18 BP 127 / 79; Pulse 94; Resp 20 S; Pulse Ox 100% on R/A; kc6 12:11 BP 113 / 74; Pulse 93; Resp 18 S; Pulse Ox 98% on R/A; kc6 12:46 BP 137 / 78; Pulse 84; Resp 16; Pulse Ox 99% ; ko1 MDM: 09:45 Patient medically screened. rn 12:47 Differential diagnosis: Anemia Chronic Obstructive Pulmonary Disease Myocardial rn Infarction pneumonia, Pneumothorax pulmonary edema. Data reviewed: vital signs, nurses notes, lab test result(s), EKG, radiologic studies, plain films, and as a result, I will admit patient. Consideration of Admission/Observation Patient was admitted/placed on observation. Escalation of care including admission/observation considered. Independent interpretation of the following test(s) in the Emergency Department EKG: See my EKG interpretation above X-Ray: My interpretation is Chest x-ray images show bilateral lower pulmonary opacities per my interpretation. Counseling: I had a detailed discussion with the patient and/or guardian regarding the historical points, exam findings, and any diagnostic results supporting the discharge/admit diagnosis, lab results, radiology results, the need for further work-up and treatment in the hospital. Response to treatment: the patient's symptoms have mildly improved after treatment, and as a result, I will admit patient. ED course: Patient flu positive, clinically flu pneumonia, elevated lactic acid, not shock, 30/kg bolus not indicated in this patient. Blood cultures obtained, antibiotics ordered as well as Tamiflu. Will admit to hospitalist service for further care. 09/20 09:49 Order name: Blood Culture Adult (2) rn 09/20 09:49 Order name: CBC with Diff; Complete Time: 11:57 rn 09/20 09:49 Order name: CMP; Complete Time: 10:35 rn 09/20 09:49 Order name: Lactate w/ 2H reflex if indic.; Complete Time: 10:34 rn 09/20 09:49 Order name: Protime (+inr); Complete Time: 10:33 rn 09/20 09:49 Order name: Ptt, Activated; Complete Time: 10:33 rn 09/20 09:50 Order name: BNP; Complete Time: 10:35 rn 09/20 09:50 Order name: SARS RAPID; Complete Time: 11:02 rn 09/20 09:50 Order name: Flu; Complete Time: 11:02 rn 09/20 10:13 Order name: Glucose, Ancillary Testing; Complete Time: 10:33 EDMS 09/20 10:16 Order name: CBC Smear Scan; Complete Time: 11:57 EDMS 09/20 13:23 Order name: Basic Metabolic Panel EDMS 09/20 13:23 Order name: Basic Metabolic Panel EDMS 09/20 13:23 Order name: Basic Metabolic Panel EDMS 09/20 13:23 Order name: Basic Metabolic Panel EDMS 09/20 13:23 Order name: Basic Metabolic Panel EDMS 09/20 13:23 Order name: Basic Metabolic Panel EDMS 09/20 13:23 Order name: CBC with Automated Diff EDMS 09/20 13:23 Order name: CBC with Automated Diff EDMS 09/20 13:23 Order name: Urinalysis w/ reflexes EDMS 09/20 13:24 Order name: CBC with Automated Diff EDMS 09/20 13:24 Order name: CBC with Automated Diff EDMS 09/20 13:24 Order name: CBC with Automated Diff EDMS 09/20 13:24 Order name: CBC with Automated Diff EDMS 09/20 13:24 Order name: Magnesium EDMS 09/20 13:24 Order name: Magnesium EDMS 09/20 13:24 Order name: Magnesium EDMS 09/20 13:24 Order name: Magnesium EDMS 09/20 13:24 Order name: Magnesium EDMS 09/20 13:24 Order name: Magnesium EDMS 09/20 13:24 Order name: Phosphorus EDMS 09/20 13:24 Order name: Phosphorus EDMS 09/20 13:24 Order name: Phosphorus EDMS 09/20 13:24 Order name: Phosphorus EDMS 09/20 13:24 Order name: Phosphorus EDMS 09/20 13:24 Order name: Phosphorus EDMS 09/20 13:31 Order name: Lactate Sepsis 2 HR Follow-up EDMS 09/20 09:49 Order name: Chest Single View XRAY; Complete Time: 11:02 rn 09/20 09:49 Order name: EKG; Complete Time: 09:50 rn 09/20 09:49 Order name: Accucheck; Complete Time: 10:06 rn 09/20 09:49 Order name: Cardiac monitoring; Complete Time: 09:50 rn 09/20 09:49 Order name: EKG - Nurse/Tech; Complete Time: 09:50 rn 09/20 09:49 Order name: IV Saline Lock - Large Bore; Complete Time: 10:06 rn 08 09:49 Order name: Labs collected and sent; Complete Time: 10:06 rn 09/20 09:49 Order name: O2 Per Protocol; Complete Time: 09:50 rn 09/20 09:49 Order name: O2 Sat Monitoring; Complete Time: 09:50 rn 08 09:49 Order name: Vital Signs; Complete Time: 09:50 rn Administered Medications: 09:56 Drug: Levalbuterol Inhalation 1.25 mg Inhalation once Route: Inhalation; ko1 11:17 Follow up: Response: No adverse reaction kc6 11:17 Drug: Rocephin IV 1 grams IV at calculated rate once; Given slow IV push per pharmacy kc6 instructions Route: IV; Rate: calculated rate; Site: right antecubital; 11:56 Follow up: Response: No adverse reaction; IV Status: Completed infusion; IV Intake: [id number] 11:17 Drug: Zithromax IVPB 500 mg IVPB once over 1 hrs; mix in 250 mL NS Route: IVPB; Infused kc6 Over: 1 hrs; Site: right antecubital; 12:24 Follow up: Response: No adverse reaction; IV Status: Completed infusion; IV Intake: kc6 250ml 11:17 Drug: Oseltamivir PO 75 mg PO once Route: PO; kc6 11:56 Follow up: Response: No adverse reaction kc6 Disposition Summary: 09/21/23 12:49 Hospitalization Ordered Notes: Hospitalization Status: Observation rn Provider: Farzad Durham rn Location: Telemetry/MedSurg (observation) rn Condition: Stable rn Problem: new rn Symptoms: have improved rn Bed/Room Type: Standard rn Room Assignment: 404(09/21/23 13:38) bd Diagnosis - Influenza due to identified novel influenza A virus with other respiratory rn manifestations - Emphysema, unspecified - with acute exacerbation rn - Pneumonia, unspecified organism rn Forms: - Medication Reconciliation Form rn - SBAR form rn - Leadership Thank You Letter rn Signatures: Dispatcher [employer] EDMS Nicole lowe bd Manjinder Heller MD MD rn Campbell, Dori RN RN kc6 Tabatha Daigle RN RN ko1 Corrections: (The following items were deleted from the chart) 09:50 09:50 PROBNP+C.LAB.BRZ ordered. EDMS EDMS 09:50 09:50 SARS-COV-2 Antigen Rapid+I.LAB.BRZ ordered. EDMS EDMS 09:50 09:50 Influenza Screen (A \T\ B)+BA.LAB.BRZ ordered. EDMS EDMS 09:54 09:52 Constitutional: Negative for fever, chills, and weight loss, ENT: Positive for rn runny nose Neck: Negative for injury, pain, and swelling, Cardiovascular: Negative for chest pain, palpitations, and edema, Respiratory: Positive for productive cough and shortness of breath Abdomen/GI: Negative for abdominal pain, nausea, vomiting, diarrhea, and constipation, Back: Negative for injury and pain, MS/Extremity: Negative for injury and deformity, Skin: Negative for injury, rash, and discoloration, Neuro: Negative for headache, weakness, numbness, tingling, and seizure, rn 10:10 10:09 PSHx: mass removed from testicles; ko1 ko1 13:38 12:49 rn julisa
--- NOTE | 2023-09-21 12:50 | ER ---
Nurse's Notes [facility] Name: Zheng Nicholas Age: 58 yrs Sex: Male : 1965 Arrival Date: 09/21/2023 Time: 09:37 Bed 8 Private MD: Diagnosis: Influenza due to identified novel influenza A virus with other respiratory manifestations;Emphysema, unspecified-with acute exacerbation;Pneumonia, unspecified organism Presentation: 09/20 09:50 Chief complaint: Patient states: short of breath x 2 days, worse today, also with ko1 possible fever, runny nose and cough. Coronavirus screen: chills, cough unrelated to allergies, fever, runny nose, shortness of breath, Client presents with at least one sign or symptom that may indicate coronavirus-19. Standard/surgical mask placed on the client. Ebola Screen: No symptoms or risks identified at this time. Initial Sepsis Screen: Does the patient meet any 2 criteria? RR > 20 per min. HR > 90 bpm. Yes Does the patient have a suspected source of infection? No. Patient's initial sepsis screen is negative. Risk Assessment: Do you want to hurt yourself or someone else? Patient reports no desire to harm self or others. Onset of symptoms is unknown. 09:50 Method Of Arrival: Wheelchair ko1 09:50 Acuity: DENISA 3 ko1 Triage Assessment: 10:09 General: Appears in no apparent distress. uncomfortable, Behavior is calm, cooperative, ko1 appropriate for age. Pain: Complains of pain in ribs. Respiratory: Reports shortness of breath at rest cough that is pain with cough pain with respiration Onset: The symptoms/episode began/occurred 2 days ago, the patient has moderate shortness of breath. Historical: - Allergies: 10:09 No Known Allergies; ko1 - Immunization history:: Adult Immunizations unknown. - Infectious Disease History:: Denies. - Family history:: not pertinent. - Social history:: Smoking status: Patient reports the use of cigarette tobacco products, smokes one-half pack cigarettes per day. - Hospitalizations: : No recent hospitalization is reported. Screenin:25 [facility] ED Fall Risk Assessment (Adult) History of falling in the last 3 months, kc6 including since admission No falls in past 3 months (0 pts) Confusion or Disorientation No (0 pts) Intoxicated or Sedated No (0 pts) Impaired Gait No (0 pts) Mobility Assist Device Used No (0 pt) Altered Elimination No (0 pt) Score/Fall Risk Level 0 - 2 = Low Risk. Abuse screen: Denies threats or abuse. Denies injuries from another. Nutritional screening: No deficits noted. Tuberculosis screening: No symptoms or risk factors identified. Assessment: 10:09 Reassessment: please see triage. kc6 10:15 Cardiovascular: Rhythm is sinus rhythm. Respiratory: Airway is patent Respiratory ko1 effort is even, labored, Breath sounds with wheezes bilaterally. 11:09 Reassessment: Patient appears in no apparent distress at this time. No changes from [facility] previously documented assessment. Patient and/or family updated on plan of care and expected duration. Pain level reassessed. Patient is alert, oriented x 3, equal unlabored respirations, skin warm/dry/pink. 12:09 Reassessment: Patient appears in no apparent distress at this time. No changes from [facility] previously documented assessment. Patient and/or family updated on plan of care and expected duration. Pain level reassessed. Patient is alert, oriented x 3, equal unlabored respirations, skin warm/dry/pink. Vital Signs: 09:50 BP 130 / 85; Pulse 107; Resp 24; Temp 98.9; Pulse Ox 99% on R/A; ko1 11:18 BP 127 / 79; Pulse 94; Resp 20 S; Pulse Ox 100% on R/A; kc6 12:11 BP 113 / 74; Pulse 93; Resp 18 S; Pulse Ox 98% on R/A; kc6 12:46 BP 137 / 78; Pulse 84; Resp 16; Pulse Ox 99% ; ko1 ED Course: 09:43 Patient arrived in ED. mg5 09:44 Manjinder Heller MD is Attending Physician. rn 09:50 Tabatha Daigle, TRAVIS is Primary Nurse. ko1 10:00 First set of blood cultures drawn. kc6 10:06 Flu Sent. ko1 10:06 SARS RAPID Sent. ko1 10:06 BNP Sent. ko1 10:06 Blood Culture Adult (2) Sent. ko1 10:06 CBC with Diff Sent. ko1 10:06 CMP Sent. ko1 10:06 Lactate w/ 2H reflex if indic. Sent. ko1 10:06 Protime (+inr) Sent. ko1 10:06 Ptt, Activated Sent. ko1 10:09 Triage completed. ko1 10:09 Arm band placed on right wrist. Patient placed in an exam room, on a stretcher, on ko1 monitoring tech, on pulse oximetry, Patient notified of wait time. 10:16 Second set of blood cultures drawn by me. kc6 10:22 Inserted saline lock: 20 gauge in right antecubital area, using aseptic technique. kc6 Blood collected. 10:25 Patient has correct armband on for positive identification. Placed in gown. Bed in low kc6 position. Call light in reach. Side rails up X2. Adult w/ patient. Client placed on continuous cardiac and pulse oximetry monitoring. NIBP monitoring applied. library monitor on. Warm blanket given. 10:38 Chest Single View XRAY In Process Unspecified. EDMS 12:46 No provider procedures requiring assistance completed. ko1 12:46 Provided Education on: labs/xray. Assisted to bathroom. ko1 12:49 Farzad Durham is Hospitalizing Provider. rn Administered Medications: 09:56 Drug: Levalbuterol Inhalation 1.25 mg Inhalation once Route: Inhalation; ko1 11:17 Follow up: Response: No adverse reaction kc6 11:17 Drug: Rocephin IV 1 grams IV at calculated rate once; Given slow IV push per pharmacy kc6 instructions Route: IV; Rate: calculated rate; Site: right antecubital; 11:56 Follow up: Response: No adverse reaction; IV Status: Completed infusion; IV Intake: [id number] 11:17 Drug: Zithromax IVPB 500 mg IVPB once over 1 hrs; mix in 250 mL NS Route: IVPB; Infused kc6 Over: 1 hrs; Site: right antecubital; 12:24 Follow up: Response: No adverse reaction; IV Status: Completed infusion; IV Intake: kc6 250ml 11:17 Drug: Oseltamivir PO 75 mg PO once Route: PO; kc6 11:56 Follow up: Response: No adverse reaction kc6 Medication: 12:46 VIS not applicable for this client. ko1 Intake: 11:56 IV: 10ml; Total: 10ml. kc6 12:24 IV: 250ml; Total: 260ml. kc6 Outcome: 12:49 Decision to Hospitalize by Provider. rn 14:31 Patient left the ED. kc6 Signatures: Dispatcher [employer] EDMS Manjinder Heller MD MD rn Campbell, Kaitlyn, RN RN kc6 Tabatha Daigle RN RN sandy1 Laure Butterfield mg5 Corrections: (The following items were deleted from the chart) 10:10 10:09 PSHx: mass removed from testicles; ko1 ko1 10:15 09:50 Initial Sepsis Screen: Does the patient meet any 2 criteria? No. Patient's ko1 initial sepsis screen is negative. Does the patient have a suspected source of infection? No. Patient's initial sepsis screen is negative. ko1 12:46 10:15 BP 137 / 78; Pulse 84bpm; Resp 16bpm; Pulse Ox 99%; ko1 ko1
--- NOTE | 2023-09-21 13:46 | P.HP ---
Patient History Date of Service: 09/21/23 Reason for admission: CHF exacerbation History of Present Illness: Zheng Nicholas is a 58 year old male with no significant Pmhx who presents to the ED with Chief complaint of Chest pain and SOB. He reports breathing becoming hard d/t to coughing which causes pain to his chest and abdomen which has been going on for the past 2 days. He reports not seeing a doctor because he doesn't get sick. On examination, there is NAD, able to converse without being SOB, afebrile, productive cough, and feeling some better since arriving. Labratory evaluation WBC 14.2, Potassium 3.1, Lactic acid 2.5, BNP 163, serum glucose 127. Initial vitals BP 130 / 85; Pulse 107; Resp 24; Temp 98.9; Pulse Ox 99% on R/A Chest xray reports "The lungs are clear. No pneumothorax or effusion. The cardiomediastinal contours are unremarkable." Zheng will be admitted to hospitalist service fro further evaluation and treatment of SOB with Chest pain. Allergies No Known Drug Allergies Allergy (Verified 11/02/20 13:43) Unknown Home Medications: NK [No Home Meds] 09/21/23 - Past Medical/Surgical History Past Medical History: Patient denies medical history - Family History Family History: Reviewed- Non-Contributory - Social History Smoking Status: Current every day smoker Alcohol use: No CD- Drugs: No Review of Systems General: Chills Respiratory: Cough, Shortness of Breath Gastrointestinal: Nausea Physical Examination - Physical Exam General: Alert, In no apparent distress, Oriented x3 HEENT: Atraumatic, Normocephalic, PERRLA Neck: Supple, 2+ carotid pulse no bruit Respiratory: Clear to auscultation bilaterally, Normal air movement Cardiovascular: Normal pulses, Regular rate/rhythm, Normal S1 S2 Capillary refill: <2 Seconds Gastrointestinal: Normal bowel sounds, Soft and benign, Non-distended Musculoskeletal: No clubbing Integumentary: No rashes Neurological: Normal speech, Normal tone - Studies Laboratory Data (last 24 hrs) 09/21/23 09/21/23 09/21/23 10:01 10:01 10:01 WBC 14.50 H Hgb 12.3 L Hct 37.0 L Plt Count 237 PT 10.7 INR 0.97 APTT 31.0 Sodium 135 L Potassium 3.1 L BUN 5 L Creatinine 0.72 Glucose 121 H Total Bilirubin 1.4 H AST 22 ALT 19 Alkaline Phosphatase 96 Microbiology Data (last 24 hrs): 09/21/23 10:04 Nasopharnyx Influenza Type A Antigen Screen - Final 09/21/23 10:04 Nasopharnyx Influenza Type B Antigen Screen - Final Assessment and Plan - Plan Assessment and Plan Acute Flu A Productive Cough Leukocytosis Lactic acidosis WBC 14.1, LA 2.5 CXR reports "The lungs are clear. No pneumothorax or effusion. The cardiomediastinal contours are unremarkable." Tamiflu Tylenol Zofran nebulizer treatments IVF Follow blood cultures Hyperglycemia serum glucose 127 A1C pending Hypokalemia K 3.1 Replete PRN monitor in AM labs DVT PPx Heparin full code LOS 2 days Discharge Plan: Home Plan to discharge in: 48 Hours - Advance Directives Does patient have a Living Will: No Does patient have a Durable POA for Healthcare: No
[2023-09-21 15:10] VITALS: BMI 24.4
[2023-09-21] MEDS: NA CHLORIDE 0.9% 1,000 ML IV SCH (15:10)
[2023-09-21] MEDS ORDERED: ONDANSETRON 4 MG/2 ML VIAL IV PRN (16:13)
[2023-09-21] MEDS ORDERED: ACETAMINOPHEN 325 MG TABLET PO PRN (16:13)
[2023-09-21] MEDS ORDERED: INSULIN REGULAR (HUMAN) 100 UNIT/ML SQ SCH (16:30)
[2023-09-21] MEDS: HEPARIN 5000 UNIT/ML 1 ML VIAL SQ SCH (17:07)
[2023-09-21 17:50] VITALS: O2SAT 99
[2023-09-21] MEDS: OSELTAMIVIR 75 MG CAP PO SCH (20:26)
[2023-09-21] MEDS: MELATONIN 3 MG TABLET PO PRN (20:27)
[2023-09-21] MEDS: ALBUTEROL 2.5 MG/3 ML NEB SOL NEB SCH (20:40)
[2023-09-21] MEDS: IPRATROPIUM BROM 0.5MG/2.5ML NEB SCH (20:40)
[2023-09-22 07:49] LABS: Anion Gap 5.9 mEq/L (5.0-15.0); Magnesium 1.7 mg/dL (1.6-2.4); Phosphorus 2.7 mg/dL (2.5-4.9); Potassium 2.9 mEq/L (3.5-5.1)
[2023-09-22 07:50] LABS: Absolute Eosinophils 0.1 K/uL (0-0.5); Absolute Lymphocytes (CBC) 1.3 K/uL (0.7-4.9); Absolute Monocytes 0.5 K/uL (0.1-1.3); Absolute Neutrophil 4.4 K/uL (1.8-8.0); Basophils % 0.7 % (0-1.3); Eosinophils % 1.5 % (0-4.4); Hematocrit 34.3 % (39.6-49.0); Hemoglobin 11.5 g/dL (13.6-17.9); Lymphocytes % 20.4 % (15.3-44.8); MCH 33.2 pg (27.0-35.0); MCHC 33.6 g/dL (32.0-36.0); MCV 98.8 fL (80-100); Monocytes % 8.1 % (3.3-12.3); Neutrophils % 69.3 % (41.7-73.7); Nucleated Red Blood Cells % 0.1 % (0-0); Platelets 224 thou/uL (152-406); RBC Red Blood Cell Count 3.47 M/uL (4.33-5.43); Red Cell Distribution Width 13.8 % (12.1-15.2)
[2023-09-22] MEDS: POTASSIUM 25 MEQ EFFERV TAB PO ONE (09:20)
[2023-09-22 09:41] VITALS: BP 124/72; TEMP 98.3
--- NOTE | 2023-09-22 13:48 | P.DS ---
Admission Date: 09/21/23 Discharge Date: 09/22/23 Disposition: ROUTINE DISCHARGE Discharge Condition: GOOD Reason for Admission: CHF exacerbation Brief History of Present Illness: Zheng Nicholas is a 58 year old male with no significant Pmhx who presents to the ED with Chief complaint of Chest pain and SOB. He reports breathing becoming hard d/t to coughing which causes pain to his chest and abdomen which has been going on for the past 2 days. He reports not seeing a doctor because he doesn't get sick. On examination, there is NAD, able to converse without being SOB, afebrile, productive cough, and feeling some better since arriving. Hospital Course: Problem list Acute Flu A Productive Cough Leukocytosis Lactic acidosis Hypokalemia Patient was admitted to the hospital for influenza A, shortness of breath. He was treated with Tamiflu, as needed nebulizer treatments and had significant improvement overnight. He does admit to smoking for many years now and likely has some underlying chronic lung disease. He has been breathing well off of oxygen overnight and feels much better today. He is stable for discharge and follow-up with his primary care doctor as well as pulmonology. Please follow-up with your primary care doctor in 1 to 2 weeks Please also follow-up with pulmonologyDr. Walton for further evaluation of possible COPD diagnosis Prescriptions for Tamiflu, prednisone and an albuterol inhaler have been sent to your pharmacy Recommend cessation of tobacco containing products Vital Signs/Physical Exam: Temp Pulse Resp BP Pulse Ox 98.3 F 67 17 124/72 99 09/22/23 08:00 09/22/23 08:00 09/22/23 08:00 09/22/23 08:00 09/22/23 08:00 General: Alert, In no apparent distress, Oriented x3 HEENT: Atraumatic, PERRLA Neck: Supple, JVD not distended Respiratory: Clear to auscultation bilaterally, Normal air movement Cardiovascular: Regular rate/rhythm, Normal S1 S2 Gastrointestinal: Normal bowel sounds, No tenderness Musculoskeletal: No tenderness Integumentary: No rashes Neurological: Normal speech, Normal tone Laboratory Data at Discharge: WBC 6.30 thou/uL (4.3-10.9) 09/22/23 06:32 Hgb 11.5 g/dL (13.6-17.9) L 09/22/23 06:32 Hct 34.3 % (39.6-49.0) L 09/22/23 06:32 Plt Count 224 thou/uL (152-406) 09/22/23 06:32 PT 10.7 SECONDS (9.5-12.5) 09/21/23 10:01 INR 0.97 09/21/23 10:01 APTT 31.0 SECONDS (24.3-36.9) 09/21/23 10:01 Sodium 136 mEq/L (136-145) 09/22/23 06:32 Potassium 2.9 mEq/L (3.5-5.1) L 09/22/23 06:32 BUN 3 mg/dL (7-18) L 09/22/23 06:32 Creatinine 0.71 mg/dL (0.70-1.30) 09/22/23 06:32 Glucose 95 mg/dL (74-106) 09/22/23 06:32 Phosphorus 2.7 mg/dL (2.5-4.9) 09/22/23 06:32 Magnesium 1.7 mg/dL (1.6-2.4) 09/22/23 06:32 Total Bilirubin 1.4 mg/dL (0.2-1.0) H 09/21/23 10:01 AST 22 U/L (15-37) 09/21/23 10:01 ALT 19 U/L (16-61) 09/21/23 10:01 Alkaline Phosphatase 96 U/L (45-117) 09/21/23 10:01 Home Medications: Albuterol Inhaler [Ventolin Inhaler*] 2 puff IH Q6H PRN #2 inh 09/22/23 Oseltamivir [Tamiflu] 75 mg PO BID 4 Days #8 cap 09/22/23 predniSONE [Deltasone*] 10 mg PO BID 5 Days #10 tab 09/22/23 New Medications: predniSONE [Deltasone*] 10 mg PO BID 5 Days #10 tab Oseltamivir [Tamiflu] 75 mg PO BID 4 Days #8 cap Albuterol Inhaler [Ventolin Inhaler*] 2 puff IH Q6H PRN #2 inh PRN Reason: Shortness Of Breath Physician Discharge Instructions: Patient was admitted to the hospital for influenza A, shortness of breath. He was treated with Tamiflu, as needed nebulizer treatments and had significant improvement overnight. He does admit to smoking for many years now and likely has some underlying chronic lung disease. He has been breathing well off of oxygen overnight and feels much better today. He is stable for discharge and follow-up with his primary care doctor as well as pulmonology. Please follow-up with your primary care doctor in 1 to 2 weeks Please also follow-up with pulmonologyDr. Anton for further evaluation of possible COPD diagnosis Prescriptions for Tamiflu, prednisone and an albuterol inhaler have been sent to your pharmacy Recommend cessation of tobacco containing products Diet: Regular Activity: Ad valery Followup: Isaiah Walton MD [ACTIVE - CAN ADMIT] - 1-2 Weeks NONE,NONE [Primary Care Provider] - 1-2 Weeks Time spent managing pt's care (in minutes): 30
--- NOTE | 2023-09-22 16:19 | EKG ---
Test Date: 2023-09-21 Test Time: 09:51:37 Video Library Assistant: SUGAR MEASUREMENT RESULTS: Intervals: Rate: 101 MA: 146 QRSD: 80 QT: 352 QTc: 456 [place]: P: 71 MA: 146 QRS: -10 T: -18 INTERPRETIVE STATEMENTS: Sinus tachycardia Otherwise normal ECG Compared to ECG 12/03/2022 22:03:31 Sinus rhythm no longer present ST (T wave) deviation no longer present Possible ischemia no longer present Electronically Signed On 09-22-23 16:15:15 CDT by Marco A Shay
== END 2023-09-22 10:29 | disposition home or self-care (01) ==
LOC: ER 09:37 → ERHOLD 13:14 → INTOOBSV 13:14 → 4TH 13:47
PROVIDERS: ADMIT Internal Medicine; ATTEND Hospitalist
DX: J09.X2 Influenza due to identified novel influenza A virus with other respiratory manifestations (principal); J43.9 Emphysema, unspecified; J18.9 Pneumonia, unspecified organism; R05.9 Cough, unspecified; D72.829 Elevated white blood cell count, unspecified; E87.20 Acidosis, unspecified; E87.6 Hypokalemia; R73.9 Hyperglycemia, unspecified; Z11.52 Encounter for screening for COVID-19
CPT/HCPCS: 96365; 96368; 93005; 87040 ×2; 85025 ×2; 80048; 36415; 83735; 84100; 85610; 82947; 83605 ×2; 85730; 83036; 80053; 83880; 87804 ×2; 71045; 94640 ×3; 99285; 87811; J1644 ×3; J7614; J7613 ×2; J7644 ×3; J7050; J7030 ×2; J0696; G0378

== ENCOUNTER 2024-03-30 09:03 | Inpatient (IN) | payer OTHER ==
[2024-03-30] MEDS ORDERED: ONDANSETRON 4 MG/2 ML VIAL ONE (09:27)
[2024-03-30] MEDS ORDERED: PANTOPRAZOLE 40 MG INJ ONE (09:27)
[2024-03-30] MEDS ORDERED: MORPHINE 4 MG/ML SYR ONE (09:27)
[2024-03-30 09:35] LABS: Absolute Basophils 0.1 K/uL (0-0.5); Absolute Eosinophils 0.1 K/uL (0-0.5); Absolute Lymphocytes (CBC) 1.2 K/uL (0.7-4.9); Absolute Monocytes 0.5 K/uL (0.1-1.3); Absolute Neutrophil 3.6 K/uL (1.8-8.0); Basophils % 1.3 % (0-1.3); Eosinophils % 1.1 % (0-4.4); Hematocrit 31.4 % (39.6-49.0); Hemoglobin 10.7 g/dL (13.6-17.9); Lymphocytes % 22.2 % (15.3-44.8); MCH 34.1 pg (27.0-35.0); MCHC 34.2 g/dL (32.0-36.0); MCV 99.5 fL (80-100); MPV 6.6 fL (7.6-11.3); Monocytes % 9.7 % (3.3-12.3); Neutrophils % 65.7 % (41.7-73.7); Nucleated Red Blood Cells % 0.3 % (0-0); Platelets 298 thou/uL (152-406); RBC Red Blood Cell Count 3.15 M/uL (4.33-5.43); Red Cell Distribution Width 16.4 % (12.1-15.2)
[2024-03-30 09:37] LABS: PT Prothrombin Time 10.5 SECONDS (9.4-12.5); Protime INR 0.94
[2024-03-30 09:57] LABS: Albumin 2.6 g/dL (3.4-5.0); Albumin/Globulin Ratio 0.8 (1.1-1.8); Anion Gap 9.5 mEq/L (5.0-15.0); Bilirubin Direct 0.4 mg/dL (0-0.2); Bilirubin Indirect, Calculated 0.7 mg/dL (0.2-0.8); Bilirubin Total 1.1 mg/dL (0.2-1.0); Globulin 3.4 g/dL (2.3-3.5); Magnesium 1.4 mg/dL (1.6-2.4)
[2024-03-30 09:58] LABS: Potassium 2.5 mEq/L (3.5-5.1)
[2024-03-30 10:00] LABS: Blood Morphology Comment NOT SEEN (NOT SEEN); Platelet Estimate ADEQ; Platelets Clumped FEW; White Blood Cell Scan OK (OK)
--- NOTE | 2024-03-30 10:58 | RAD REPORT ---
EXAM: CT CHEST, ABDOMEN AND PELVIS WITH CONTRAST CLINICAL INDICATION: Male, 58 years old. [facility] MAIN Abdominal distention;Chest pain Bed Name: 6 TECHNIQUE: CT chest, abdomen and pelvis was performed, following the administration of contrast, as p er department protocol. Axial, sagittal and coronal reconstructions were obtained. One or more of the following dose reduction techniques were used: Automated exposure control, adjustment of the mA a nd/or kV according to patient size, and/or iterative reconstruction. Unless otherwise specified, incidental findings do not require dedicated imaging follow-up. COMPARISON: 12/16/2023 FINDINGS: LUNGS AND AIRWAYS: No evidence of airspace or interstitial process. Peripheral right lower lobe 5-6 m m nodule, calcified, suggesting a benign granuloma. Airspace opacities seen on the prior exam have since resolved.. PLEURA: No pleural effusion. No pneumothorax. MEDIASTINUM AND LYMPH NODES: No mediastinal mass or fluid collection. Normal size mediastinal, hilar, and axillary lymph nodes. THORACIC AORTA: Normal caliber and configuration. PULMONARY ARTERIES: Normal caliber. OSSEOUS STRUCTURES AND CHEST WALL: Intact. LIVER: Normal in size and contour. No focal lesion or biliary dilitation. BILIARY SYSTEM: No suspicious abnormalities. PANCREAS: No mass, ductal dilation, or jarad-pancreatic fluid. SPLEEN: Normal size. No focal lesion. ADRENALS: Normal; no mass. KIDNEYS AND URETERS: Normal size and contour. No hydronephrosis. Dominant exophytic left renal cyst a rising from the upper pole measuring 9.4 cm. This appears stable. URINARY BLADDER: Normal contour. GASTROINTESTINAL TRACT: No bowel obstruction, free air, significant free fluid or abscess. Mild pereyra smural fat deposition along the ascending colon wall, stable, may relate to prior inflammatory episodes. APPENDIX: No inflammatory changes in region of appendix. LYMPH NODES: No lymphadenopathy. ABDOMINAL AORTA AND OTHER VESSELS: Normal caliber aorta and IVC. MUSCULOSKELETAL: No acute or suspicious osseous abnormality. IMPRESSION: No acute or significant abnormalities seen in the chest, abdomen or pelvis. Stable chronic findings a s above.
--- NOTE | 2024-03-30 11:01 | EDPHYS ---
Physician Documentation [facility] Name: Zheng Nicholas Age: 58 yrs Sex: Male : 1965 Arrival Date: 03/30/2024 Time: 09:03 Bed 6 Private MD: ED Physician Didier Pearson HPI: 03/30 10:54 This 58 yrs old Black Male presents to ER via Ambulatory with complaints of Pain All rolando Over. 10:54 The patient or guardian reports chest pain that is located primarily in the anterior [facility] chest wall, bilaterally. Onset: 3 day(s) ago. The patient presents with abdominal pain in the upper abdomen, in the lower abdomen. Onset: The symptoms/episode began/occurred 3 day(s) ago. The pain does not radiate. The symptoms do not radiate. Associated signs and symptoms: Pertinent positives:. Modifying factors: The symptoms are alleviated by nothing, the symptoms are aggravated by nothing. Severity of pain: At its worst the pain was mild in the emergency department the pain is unchanged. Historical: - Allergies: 09:15 No Known Allergies; bp - Home Meds: 09:15 None [Active]; bp - PMHx: 09:15 None; bp - Immunization history:: Adult Immunizations up to date. - Infectious Disease History:: Denies. - Social history:: Smoking status: Patient denies any tobacco usage or history of. - Family history:: not pertinent. ROS: 10:54 Constitutional: Negative for fever, chills, and weight loss, Eyes: Negative for injury, rolando pain, redness, and discharge, ENT: Negative for injury, pain, and discharge, Neck: Negative for injury, pain, and swelling, Cardiovascular: Negative for chest pain, palpitations, and edema, Respiratory: Negative for shortness of breath, cough, wheezing, and pleuritic chest pain, Back: Negative for injury and pain, : Negative for injury, bleeding, discharge, and swelling, MS/Extremity: Negative for injury and deformity, Skin: Negative for injury, rash, and discoloration, Neuro: Negative for headache, weakness, numbness, tingling, and seizure, Psych: Negative for depression, anxiety, suicide ideation, homicidal ideation, and hallucinations, Allergy/Immunology: Negative for hives, rash, and allergies, Endocrine: Negative for neck swelling, polydipsia, polyuria, polyphagia, and marked weight changes, Hematologic/Lymphatic: Negative for swollen nodes, abnormal bleeding, and unusual bruising, 10:54 Cardiovascular: Positive for chest pain, 10:54 Abdomen/GI: Positive for abdominal pain, rectal bleeding, Exam: 10:54 Constitutional: This is a well developed, well nourished patient who is awake, alert, rolando and in no acute distress. Head/Face: Normocephalic, atraumatic. Eyes: Pupils equal round and reactive to light, extra-ocular motions intact. Lids and lashes normal. Conjunctiva and sclera are non-icteric and not injected. Cornea within normal limits. Periorbital areas with no swelling, redness, or edema. ENT: Nares patent. No nasal discharge, no septal abnormalities noted. Tympanic membranes are normal and external auditory canals are clear. Oropharynx with no redness, swelling, or masses, exudates, or evidence of obstruction, uvula midline. Mucous membranes moist. Neck: Trachea midline, no thyromegaly or masses palpated, and no cervical lymphadenopathy. Supple, full range of motion without nuchal rigidity, or vertebral point tenderness. No Meningismus. Chest/axilla: Normal chest wall appearance and motion. Nontender with no deformity. No lesions are appreciated. Cardiovascular: Regular rate and rhythm with a normal S1 and S2. No gallops, murmurs, or rubs. Normal PMI, no JVD. No pulse deficits. Respiratory: Lungs have equal breath sounds bilaterally, clear to auscultation and percussion. No rales, rhonchi or wheezes noted. No increased work of breathing, no retractions or nasal flaring. Back: No spinal tenderness. No costovertebral tenderness. Full range of motion. Male : Normal genitalia with no discharge or lesions. Skin: Warm, dry with normal turgor. Normal color with no rashes, no lesions, and no evidence of cellulitis. MS/ Extremity: Pulses equal, no cyanosis. Neurovascular intact. Full, normal range of motion. Neuro: Awake and alert, GCS 15, oriented to person, place, time, and situation. Cranial nerves II-XII grossly intact. Motor strength 5/5 in all extremities. Sensory grossly intact. Cerebellar exam normal. Normal gait. Psych: Awake, alert, with orientation to person, place and time. Behavior, mood, and affect are within normal limits. 10:54 Abdomen/GI: Inspection: abdomen appears normal, Bowel sounds: normal, Palpation: mild abdominal tenderness, in all quadrants, Liver: no appreciated palpable abnormalities, Hernia: not appreciated, 10:54 Musculoskeletal/extremity: DVT Exam: No signs of deep vein thrombosis. no pain, no swelling, no tenderness, negative Homans' sign noted on exam, no appreciated bluish discoloration, no erythema, no increased warmth, 10:54 Neuro: Orientation: is normal, appropriate for stated age, no acute changes, Mentation: is normal, appropriate for stated age, no acute changes, Memory: is normal, appropriate for stated age, no acute changes, Cranial nerves: grossly normal, Gait: is steady, 11:01 ECG was reviewed by the Attending Physician. rolando 11:01 Abdomen/GI: Rectal exam: is unremarkable, Prostate: normal, rectal tone normal, Stool: guaiac negative, hemorrhoid(s), are not appreciated, mass, is not appreciated, swelling, is not appreciated, tenderness, is not appreciated, fecal impaction, is not appreciated, Vital Signs: 09:14 BP 129 / 80; Pulse 92; Resp 16; Temp 98; Pulse Ox 100% ; bp 12:00 BP 114 / 67; Pulse 68; Resp 16; Pulse Ox 97% on R/A; iw 14:00 BP 124 / 71; Pulse 68; Resp 16; Pulse Ox 99% on R/A; iw MDM: 09:12 Medical Screening Exam initiated rolando 10:57 Differential diagnosis: abnormal EKG, acute myocardial infarction, coronary artery rolando disease chest wall pain, Cholelithiasis costochondritis, esophagitis, pancreatitis, peptic ulcer disease, pericarditis, pneumonia, pneumothorax, pulmonary embolus, thoracic aortic disection, appendicitis, bowel obstruction, Cholelithiasis, diverticulitis, gastritis, GI Bleed, Hepatitis, non-specific abd pain, pancreatitis, Peptic Ulcer Disease, Perf. Duodenal Ulcer, Peritonitis, Prostatitis, Pyelonephritis, Ureterolithiasis, urinary tract infection. HEART Score: History: Moderately Suspicious (1), ECG: Non specific repolarization disturbance / LBTB / PM (1), Age: > 45 and < 65 years (1), Risk Factors: > or = 3 Risk factors for atherosclerotic disease (2), [Hypertension] [Active Smoker] Troponin: < or = 1 x Normal Limit (0). The patient was not given aspirin in the Emergency Department. Not indicated due to patient's past medical history. KHRIS Risk Score: 1 - Three or more CAD risk factors, TOTAL SCORE = 1. Data reviewed: vital signs, nurses notes, lab test result(s), EKG, radiologic studies, CT scan, plain films. Consideration of Admission/Observation Patient was admitted/placed on observation. Escalation of care including admission/observation considered. I considered the following discharge prescriptions or medication management in the emergency department Medications were administered in the Emergency Department. See MAR. Independent interpretation of the following test(s) in the Emergency Department EKG: See my EKG interpretation above. Test considered but Not performed: Ultrasound NO 2 D ECHO. 03/30 09:19 Order name: Basic Metabolic Panel; Complete Time: 10:43 [facility] 03/30 09:19 Order name: CBC with Diff; Complete Time: 10:43 [facility] 03/30 09:19 Order name: LFT's; Complete Time: 10:43 [facility] 03/30 09:19 Order name: Magnesium; Complete Time: 10:43 [facility] 03/30 09:19 Order name: NT PRO-BNP; Complete Time: 10:43 [facility] 03/30 09:19 Order name: PT-INR; Complete Time: 10:43 [facility] 03/30 09:19 Order name: Troponin HS; Complete Time: 10:43 [facility] 03/30 09:19 Order name: Lipase; Complete Time: 10:43 [facility] 03/30 09:19 Order name: Urinalysis w/ reflexes [facility] 03/30 09:19 Order name: UDS [facility] 03/30 10:01 Order name: CBC Smear Scan; Complete Time: 10:43 [facility] 03/30 10:45 Order name: Phosphorus [facility] 03/30 11:57 Order name: Urine Culture [facility] 03/30 16:40 Order name: Hemoglobin [facility] 03/30 16:40 Order name: Hematocrit [facility] 03/30 16:53 Order name: Troponin High Sensitivity [facility] 03/30 09:19 Order name: XRAY Chest (1 view) [facility] 03/30 09:19 Order name: CT Chest, Abdomen, Pelvis - W/Contrast [facility] 03/30 09:19 Order name: Cardiac monitoring; Complete Time: 09:36 [facility] 03/30 09:19 Order name: EKG - Nurse/Tech; Complete Time: : [facility] 03/30 09:19 Order name: IV Saline Lock; Complete Time: [facility] 03/30 09:19 Order name: Labs collected and sent; Complete Time: [facility] 03/30 09:19 Order name: O2 Per Protocol; Complete Time: [facility] 03/30 09:19 Order name: O2 Sat Monitoring; Complete Time: [facility] EC:01 Rate is 787 beats/min. Rhythm is regular. QRS [place] is Normal. UT interval is normal. [facility] QRS interval is normal. QT interval is normal. No Q waves. T waves are Normal. No ST changes noted. Clinical impression: NSR w/ Non-specific ST/T Changes. Interpreted by me. Reviewed by me. Administered Medications: 09:44 Drug: Pantoprazole IVP 40 mg IVP once Route: IVP; Site: left antecubital; iw 14:59 Follow up: Response: No adverse reaction ph 09:44 Drug: morphine IVP or IV 4 mg IVP once over 4 mins Route: IVP; Infused Over: 4 mins; iw Site: left antecubital; 10:15 Follow up: Response: No adverse reaction; Pain is decreased ph 09:44 Drug: Ondansetron IVP 4 mg IVP once; over 2 minutes Route: IVP; Site: left antecubital; iw 14:59 Follow up: Response: No adverse reaction ph 11:31 Drug: Potassium PO Effervescent Tablet 50 mEq PO once; dissolve in 4 ounces of water or iw juice Route: PO; 15:00 Follow up: Response: No adverse reaction ph 11:31 Drug: Magnesium Sulfate IVPB 2 grams IVPB once over 2 hrs Route: IVPB; Infused Over: 2 iw hrs; Site: left antecubital; 15:00 Follow up: Response: No adverse reaction; IV Status: Completed infusion ph 11:31 Drug: GI Cocktail without - (Maalox PO 30 ml, Lidocaine Mucous Membrane 2 % 15 iw ml) PO once Route: PO; 15:01 Follow up: Response: No adverse reaction ph 12:21 Drug: NS 0.9% with KCl IV 20 mEq/L 1000 ml IV at 125 ml/hr continuous Route: IV; Rate: iw 125 ml/hr; Site: left antecubital; 15:01 Follow up: Response: No adverse reaction; IV Status: Infusion continued upon admission ph 13:04 Drug: Potassium Chloride IV 20 mEq IV at per protocol once; administer over 1-2 hours iw Route: IV; Rate: per protocol; Site: left antecubital; 15:01 Follow up: Response: No adverse reaction; IV Status: Completed infusion ph Disposition Summary: 03/30/24 11:01 Hospitalization Ordered Notes: Hospitalization Status: Observation rolando Provider: Paolo Hardin cha Location: Telemetry/MedSurg (observation) rolando Condition: Fair rolando Problem: new rolando Symptoms: have improved rolando Bed/Room Type: Standard rolando Room Assignment: 224(03/30/24 15:46) rs6 Diagnosis - Chest pain, unspecified rolando - Abdominal tenderness rolando - Hypokalemia rolando - Hypomagnesemia rolando - Alcohol use, unspecified rolando - Tobacco abuse counseling rolando - Tobacco use rolando Forms: - Medication Reconciliation Form rolando - SBAR form rolando - Leadership Thank You Letter rolando Signatures: Dispatcher [employer] EDDidier Cotton MD MD cha Williams, Irene, RN RN iw Abiodun Vo RN RN Darrel Vela rs6 Adelina Carrasco RN ph Corrections: (The following items were deleted from the chart) 09:20 09:20 BASIC METABOLIC PANEL+C.LAB.BRZ ordered. EDMS EDMS 09:20 09:20 CBC+H.LAB.BRZ ordered. EDMS EDMS 09:20 09:20 HEPATIC FUNCTION+C.LAB.BRZ ordered. EDMS EDMS 09:20 09:20 MAGNESIUM+C.LAB.BRZ ordered. EDMS EDMS 09:20 09:20 PROBNP+C.LAB.BRZ ordered. EDMS EDMS 09:20 09:20 PROTIME (+INR)+COAG.LAB.BRZ ordered. EDMS EDMS 09:20 09:20 Troponin High Sensitivity+C.LAB.BRZ ordered. EDMS EDMS 09:20 09:20 LIPASE+C.LAB.BRZ ordered. EDMS EDMS 09:20 09:20 Urinalysis+U.LAB.BRZ ordered. EDMS EDMS 09:20 09:20 URINE DRUG SCREEN+UC.LAB.BRZ ordered. EDMS EDMS 09:20 09:20 Chest Single View+RAD.RAD.BRZ ordered. EDMS EDMS 09:20 09:20 Chest Abdomen Pelvis W Con+CT.RAD.BRZ ordered. EDMS EDMS 15:46 11:01 rolando rs6
--- NOTE | 2024-03-30 11:01 | ER ---
Nurse's Notes [facility] Name: Zheng Nicholas Age: 58 yrs Sex: Male : 1965 Arrival Date: 03/30/2024 Time: 09:03 Bed 6 Private MD: Diagnosis: Chest pain, unspecified;Abdominal tenderness;Hypokalemia;Hypomagnesemia;Alcohol use, unspecified;Tobacco abuse counseling;Tobacco use Presentation: 03/30 09:14 Chief complaint: Patient states: FLU-LIKE S/S x2 DAYS, COUGH AND DIARRHEA. Coronavirus bp screen: At this time, the client does not indicate any symptoms associated with coronavirus-19. Ebola Screen: No symptoms or risks identified at this time. Initial Sepsis Screen: Does the patient meet any 2 criteria? No. Patient's initial sepsis screen is negative. Does the patient have a suspected source of infection? No. Patient's initial sepsis screen is negative. Risk Assessment: Do you want to hurt yourself or someone else? Patient reports no desire to harm self or others. Onset of symptoms is unknown. 09:14 Method Of Arrival: Ambulatory bp 09:14 Acuity: DENISA 3 bp Triage Assessment: 09:15 General: Appears in no apparent distress. uncomfortable, Behavior is calm, cooperative, bp appropriate for age. Pain: Complains of pain in GENERALIZED. EENT: No deficits noted. Neuro: No deficits noted. Cardiovascular: No deficits noted. Respiratory: Reports cough that is. GI: No signs and/or symptoms were reported involving the gastrointestinal system. : No signs and/or symptoms were reported regarding the genitourinary system. Derm: No deficits noted. Musculoskeletal: No deficits noted. Historical: - Allergies: 09:15 No Known Allergies; bp - Home Meds: 09:15 None [Active]; bp - PMHx: 09:15 None; bp - Immunization history:: Adult Immunizations up to date. - Infectious Disease History:: Denies. - Social history:: Smoking status: Patient denies any tobacco usage or history of. - Family history:: not pertinent. Screenin:16 [facility] ED Fall Risk Assessment (Adult) History of falling in the last 3 months, bp including since admission No falls in past 3 months (0 pts) Confusion or Disorientation No (0 pts) Intoxicated or Sedated No (0 pts) Impaired Gait No (0 pts) Mobility Assist Device Used No (0 pt) Altered Elimination No (0 pt) Score/Fall Risk Level 0 - 2 = Low Risk. Abuse screen: Denies threats or abuse. Denies injuries from another. Nutritional screening: No deficits noted. Tuberculosis screening: No symptoms or risk factors identified. Assessment: 10:42 Reassessment: Patient appears in no apparent distress at this time. Patient and/or iw family updated on plan of care and expected duration. Pain level reassessed. pt states burning pain is back. 12:00 Reassessment: Patient appears in no apparent distress at this time. Patient and/or iw family updated on plan of care and expected duration. Pain level reassessed. Patient is alert, oriented x 3, equal unlabored respirations, skin warm/dry/pink. Vital Signs: 09:14 BP 129 / 80; Pulse 92; Resp 16; Temp 98; Pulse Ox 100% ; bp 12:00 BP 114 / 67; Pulse 68; Resp 16; Pulse Ox 97% on R/A; iw 14:00 BP 124 / 71; Pulse 68; Resp 16; Pulse Ox 99% on R/A; iw ED Course: 09:09 Patient arrived in ED. mg5 09:11 Didier Pearson MD is Attending Physician. rolando 09:15 Triage completed. bp 09:15 Arm band placed on. bp 09:16 Patient has correct armband on for positive identification. bp 09:18 Nyasia Mai, RN is Primary Nurse. iw 09:29 Lipase Sent. bc6 09:29 Basic Metabolic Panel Sent. bc6 09:29 CBC with Diff Sent. bc6 09:29 LFT's Sent. bc6 09:30 Magnesium Sent. bc6 09:30 NT PRO-BNP Sent. bc6 09:30 PT-INR Sent. bc6 09:30 Troponin HS Sent. bc6 09:30 Initial lab(s) drawn, by me, sent to lab. Inserted saline lock: 20 gauge in left bc6 antecubital area, using aseptic technique. Blood collected. Flushed with 10 mL NS. 10:21 CT Chest, Abdomen, Pelvis - W/Contrast In Process Unspecified. EDMS 10:25 XRAY Chest (1 view) In Process Unspecified. EDMS 11:00 Mario Hardin is Hospitalizing Provider. rolando 11:00 Paolo Hardin MD is Hospitalizing Provider. rolando 17:04 No provider procedures requiring assistance completed. Patient admitted, IV remains in iw place. Administered Medications: 09:44 Drug: Pantoprazole IVP 40 mg IVP once Route: IVP; Site: left antecubital; iw 14:59 Follow up: Response: No adverse reaction ph 09:44 Drug: morphine IVP or IV 4 mg IVP once over 4 mins Route: IVP; Infused Over: 4 mins; iw Site: left antecubital; 10:15 Follow up: Response: No adverse reaction; Pain is decreased ph 09:44 Drug: Ondansetron IVP 4 mg IVP once; over 2 minutes Route: IVP; Site: left antecubital; iw 14:59 Follow up: Response: No adverse reaction ph 11:31 Drug: Potassium PO Effervescent Tablet 50 mEq PO once; dissolve in 4 ounces of water or iw juice Route: PO; 15:00 Follow up: Response: No adverse reaction ph 11:31 Drug: Magnesium Sulfate IVPB 2 grams IVPB once over 2 hrs Route: IVPB; Infused Over: 2 iw hrs; Site: left antecubital; 15:00 Follow up: Response: No adverse reaction; IV Status: Completed infusion ph 11:31 Drug: GI Cocktail without - (Maalox PO 30 ml, Lidocaine Mucous Membrane 2 % 15 iw ml) PO once Route: PO; 15:01 Follow up: Response: No adverse reaction ph 12:21 Drug: NS 0.9% with KCl IV 20 mEq/L 1000 ml IV at 125 ml/hr continuous Route: IV; Rate: iw 125 ml/hr; Site: left antecubital; 15:01 Follow up: Response: No adverse reaction; IV Status: Infusion continued upon admission ph 13:04 Drug: Potassium Chloride IV 20 mEq IV at per protocol once; administer over 1-2 hours iw Route: IV; Rate: per protocol; Site: left antecubital; 15:01 Follow up: Response: No adverse reaction; IV Status: Completed infusion ph Medication: 09:16 VIS not applicable for this client. bp Outcome: 11:01 Decision to Hospitalize by Provider. rolando 17:04 Admitted to Med/surg accompanied by tech, via wheelchair, room 224, Report called to iw Rosa ROBLES 17:04 Condition: good 17:04 Discharge instructions given to patient, Instructed on the need for admit, Demonstrated understanding of instructions, 17:08 Patient left the ED. rolando Signatures: Dispatcher [employer] Didier Leonard MD MD cha Williams, Irene, RN Adelina Mosqueda RN RN Abiodun Vo RN RN Ebony Padilla [facility] Laure Butterfield 5
--- NOTE | 2024-03-30 11:05 | RAD REPORT ---
EXAMINATION: ONE VIEW CHEST XR CLINICAL INDICATION: Male, 58 years old.,Abdominal distention;Pain;Chest pain TECHNIQUE: Frontal chest projection is submitted. Examination is limited by patient positioning and t echnique. COMPARISON: 12/16/2023 FINDINGS: The lungs are well inflated. Medial right basilar hazy opacity. No pneumothorax or sizable effusion. The heart is normal in size. IMPRESSION: Medial right basilar hazy opacity, may reflect atelectasis or early airspace disease.
[2024-03-30] MEDS ORDERED: LIDOCAINE VISCOUS 2% 10ML ORAL SOLN ONE (11:09)
[2024-03-30] MEDS ORDERED: POTASSIUM 25 MEQ EFFERV TAB ONE (11:09)
[2024-03-30] MEDS ORDERED: MAGNES/ALUMIN/SIMET 30ML UCUP ONE (11:09)
[2024-03-30] MEDS ORDERED: Magnesium Sulfate 2gm IVPB 2 G/50 ML BAG IV ONE (11:10)
[2024-03-30 11:52] LABS: Sqamous Epithelial <5 /HPF (None Seen); Urine Bacteria >50 /HPF (<20); Urine Bilirubin NEGATIVE (Negative); Urine Blood Negative (Negative); Urine Clarity Clear (Clear); Urine Color Light-Orange (Yellow); Urine Culture Reflex Order REFLEXED; Urine Glucose NEGATIVE (Negative); Urine Ketones TRACE (Negative); Urine Microscopic Reflex YN ORDER UMIC; Urine Mucus 3+ /HPF (None Seen); Urine Nitrite 2+ (Negative); Urine Protein 1+ (Negative); Urine Urobilinogen Normal (Normal); Urine WBC 20-50 /HPF (<5); Urine pH 6.5 (5.0-7.0)
[2024-03-30 11:54] LABS: Specific Gravity > 1.030 (1.005-1.030)
[2024-03-30] MEDS ORDERED: NS KCL 20MEQ 1,000 ML IV ONE (12:10)
[2024-03-30] MEDS ORDERED: KCL 20 MEQ/100 mL IVPB 100 ML IV ONE (12:11)
[2024-03-30 12:28] LABS: Barbiturates NEGATIVE (NEGATIVE); Benzodiazepines NEGATIVE (NEGATIVE); Cocaine NEGATIVE (NEGATIVE); METHAMPHETAM NEGATIVE (NEGATIVE); Methadone NEGATIVE (NEGATIVE); Opiates POSITIVE (NEGATIVE); Phencyclidine NEGATIVE (NEGATIVE); THC Cannibis POSITIVE (NEGATIVE)
[2024-03-30] MEDS ORDERED: ONDANSETRON 4 MG/2 ML VIAL IV PRN (14:48)
[2024-03-30] MEDS ORDERED: ACETAMINOPHEN 500 MG TAB PO PRN (14:48)
--- NOTE | 2024-03-30 14:53 | P.HP ---
Certification for Inpatient Patient admitted to: Inpatient With expected LOS: >2 Midnights Patient will require the following post-hospital care: None Practitioner: I am a practitioner with admitting privileges, knowledge of patient current condition, hospital course, and medical plan of care. Services: Services provided to patient in accordance with Admission requirements found in Title 42 Section 412.3 of the Code of Federal Regulations Patient History Date of Service: 03/30/24 Reason for admission: GI bleeding/chest pain History of Present Illness: Patient is a 58-year-old gentleman who presents to the emergency room with complaints of lower GI bleeding. He states he has been bleeding profusely overnight and also this morning so he came into the ER. In the ER, he also mentions to having some discomfort. EKG and troponins been negative. Patient states that he is also lost about 30-40 pounds. He does not have much of an appetite. He has never had a colonoscopy. At this time, patient will be admitted to the hospital for the GI bleeding. Will monitor H&H closely. Will consult GI as well as cardiology. Serial troponins and EKG. Echocardiogram is ordered for the morning and cardiology is recommending stress test as well. Allergies No Known Drug Allergies Allergy (Verified 11/02/20 13:43) Unknown Home Medications: Albuterol Inhaler [Ventolin Inhaler*] 2 puff IH Q6H PRN #2 inh 09/22/23 predniSONE [Deltasone*] 10 mg PO BID 5 Days #10 tab 09/22/23 Levofloxacin [Levaquin] 500 mg PO DAILY 5 Days #5 tab 12/18/23 Pantoprazole Sodium [Protonix] 40 mg PO DAILY 30 Days #30 tab 12/18/23 Sucralfate [Carafate*] 1 gm PO ACHS 5 Days #20 tab 12/18/23 - Past Medical/Surgical History Diabetic: No Past Surgical History: Patient denies surgical history - Family History Father Family History: Reviewed- Non-Contributory - Social History Smoking Status: Former smoker Alcohol use: No CD- Drugs: No Caffeine use: No Review of Systems 10-point ROS is otherwise unremarkable Physical Examination - Vital Signs Temperature: 98 F Blood Pressure: 140/80 Pulse: 80 Respirations: 18 Pulse Ox (%): 95 - Physical Exam General: Alert, In no apparent distress, Oriented x3 HEENT: Atraumatic, PERRLA, Mucous membr. moist/pink, EOMI, Sclerae nonicteric Neck: Supple, 2+ carotid pulse no bruit, No LAD, Without JVD or thyroid abnormality Respiratory: Clear to auscultation bilaterally, Normal air movement Cardiovascular: Regular rate/rhythm, Normal S1 S2, No murmurs Gastrointestinal: Normal bowel sounds, Soft and benign, Non-distended, No rebound, No guarding, Tenderness Musculoskeletal: No tenderness Integumentary: No rashes Neurological: Normal gait, Normal speech, Normal strength at 5/5 x4 extr, Normal tone, Sensation intact, Normal affect Lymphatics: No axilla or inguinal lymphadenopathy - Studies Laboratory Data (last 24 hrs) 03/30/24 03/30/24 03/30/24 09:30 09:30 09:30 WBC 5.40 Hgb 10.7 L Hct 31.4 L Plt Count 298 PT 10.5 INR 0.94 Sodium Potassium BUN Creatinine Glucose Phosphorus 2.8 Magnesium Total Bilirubin AST ALT Alkaline Phosphatase Lipase 03/30/24 09:30 WBC Hgb Hct Plt Count PT INR Sodium 142 Potassium 2.5 L* BUN 5 L Creatinine 0.74 Glucose 105 Phosphorus Magnesium 1.4 L Total Bilirubin 1.1 H AST 36 ALT 26 Alkaline Phosphatase 72 Lipase 28 Assessment & Plan - Problems (Diagnosis) (1) Chest pain, rule out acute myocardial infarction Current Visit: Yes Status: Acute (2) Lower GI bleeding Current Visit: Yes Status: Acute (3) Hypokalemia Current Visit: Yes Status: Acute (4) Hypomagnesemia Current Visit: Yes Status: Acute - Plan 1. Chest pain rule out acute current syndrome; serial troponins and EKG. Cardiology consultation. Echo and stress test pending as well. 2. Lower GI bleeding; patient states he has been bleeding for the last 24 hours. Still have active bleeding this morning. Hemoglobin is stable at this time. Blood pressure is stable. PPI twice a day. Patient will probably need colonoscopy. GI consultation pending. CT scan with no abnormality 3. Hypokalemia and hypomagnesemia; supplement potassium and magnesium 4. Discharge Plan: Home Plan to discharge in: Greater than 2 days - Advance Directives Does patient have a Living Will: No Does patient have a Durable POA for Healthcare: No - Code Status/Comfort Care Code Status Assessed: Yes Code Status: Full Code Critical Care: No Time Spent Managing PTS Care (In Minutes): 45
[2024-03-30] MEDS ORDERED: NA CHLORIDE 0.9% 250 ML IV SCH (15:00)
[2024-03-30 16:37] LABS: Hematocrit 31.4 % (39.6-49.0); Hemoglobin 10.8 g/dL (13.6-17.9)
[2024-03-30] MEDS: NA CHLORIDE 0.9% 1,000 ML IV SCH (18:17)
[2024-03-30] MEDS: CEFTRIAXONE 1,000 MG in NA CHLORIDE 0.9% 50 ML IVPB ONE (18:23)
[2024-03-30 19:35] VITALS: BMI 19.0
[2024-03-30] MEDS: PANTOPRAZOLE 40 MG INJ IVP SCH (21:06)
[2024-03-30 21:54] LABS: Hematocrit 25.8 % (39.6-49.0); Hemoglobin 8.7 g/dL (13.6-17.9)
[2024-03-31] MEDS: MORPHINE 2 MG/ML SYR IV PRN (01:00)
[2024-03-31 09:03] LABS: Absolute Eosinophils 0.1 K/uL (0-0.5); Absolute Lymphocytes (CBC) 1.2 K/uL (0.7-4.9); Absolute Monocytes 0.4 K/uL (0.1-1.3); Absolute Neutrophil 2.5 K/uL (1.8-8.0); Basophils % 0.8 % (0-1.3); Eosinophils % 2.3 % (0-4.4); Hematocrit 26.6 % (39.6-49.0); Hemoglobin 9.1 g/dL (13.6-17.9); Lymphocytes % 27.8 % (15.3-44.8); MCH 34.2 pg (27.0-35.0); MCV 100.5 fL (80-100); MPV 7.4 fL (7.6-11.3); Monocytes % 10.5 % (3.3-12.3); Neutrophils % 58.6 % (41.7-73.7); Nucleated Red Blood Cells % 0.3 % (0-0); Platelets 238 thou/uL (152-406); RBC Red Blood Cell Count 2.65 M/uL (4.33-5.43); Red Cell Distribution Width 16.5 % (12.1-15.2)
[2024-03-31 09:08] LABS: PT Prothrombin Time 10.8 SECONDS (9.4-12.5); PTT, Activated Partial Thromb 29.7 SECONDS (24.3-36.9); Protime INR 0.96
[2024-03-31] MEDS: SODIUM CHLORIDE 0.9% 10ML INJ IV SCH (09:08)
[2024-03-31] MEDS: CEFTRIAXONE 1,000 MG in NA CHLORIDE 0.9% 50 ML IVPB SCH (09:09)
--- NOTE | 2024-03-31 09:57 | P.PN ---
Date of Service: 03/31/24 subjective N.p.o. for stress test today for chest pain Review of Systems 10 point review of system negative unless listed in HPI Physical Examination vital signs Reviewed - Physical Exam General: Alert, In no apparent distress, Oriented x3 HEENT: Atraumatic, Normocephalic, PERRLA Neck: Supple, 2+ carotid pulse no bruit Respiratory: Normal air movement, Diminished Cardiovascular: Normal pulses Capillary refill: <2 Seconds Gastrointestinal: Normal bowel sounds, Soft and benign Musculoskeletal: No clubbing Integumentary: No rashes Neurological: Normal speech, Normal tone Assessment and Plan - Plan Chest pain unspecified abnorml stress test Cardiology consult, telemetry Echo, stress test ordered MODERATE DILATED LEFT VENTRICULAR CAVITY 2. MILDLY REDUCED LEFT VENTRICULAR SYSTOLIC FUNCTION, EJECTION FRACTION 50%, MILD GLOBAL HYPOKINESIS 3. AORTIC VALVE MOST LIKELY BISCUSPID WITH MODERATE AORTIC REGURGITATION 4. NORMAL FILLING PRESSURE [facility] scheduled 04/01 NUC MED Stress Large fixed defects involving the apex, adjacent septal and lateral baumann, and the entirety of the inferior wall, suggesting prior infarcts. Portions of the fixed defects in those regions could be artifactual, related to splanchnic uptake. Hypokinesia is noted at the apex and adjacent inferior wall. Left ventricular ejection fraction is reduced:34% Lower GI bleeding likely secondary to anticoagualtion, heart cath Abdominal pain Dr. Suarez consulted CT of the chest abdomen pelvis No acute or significant abnormalities seen in the chest, abdomen or pelvis. Stable chronic findings as above. Dr suarez consulted COPD stable Resume home meds Hypokalemia improved Hypomagnesia improved Unexpected weight loss Trend electrolytes, replete PRN 30 pound weight loss since September Alcohol use Tobacco use Educate on alcohol tobacco cessation Hepatic steatosis Left renal cyst measuring 8.3 cm -incidental findings on CT CAP previously DVT ppx lovenox Full code LOS 2-3 days Discharge Plan: Home Plan to discharge in: 48 Hours - Advance Directives Does patient have a Living Will: No Does patient have a Durable POA for Healthcare: No Time with patient 30-minute
[2024-03-31] MEDS ORDERED: REGADENOSON 0.4 MG/5 ML SYR IV ONE (11:18)
--- NOTE | 2024-03-31 12:46 | TREADPHA ---
DX: CHEST PAIN, RULE OUT ACUTE CORONARY SYNDROME Date of Study: 03/31/2024 Ht: 6' 1 " Wt: 144 lb 0 oz Consulting Physician: JUWAN MEDICATIONS: TYLENOL, CEFTRIAXONE, MORPHINE, ZOFRAN, PROTONIX HISTORY: 58 YEAR OLD MALE WITH COMPLAINTS OF CHEST PAIN. NO HISTORY TO REPORT. PATIENT SMOKES HALF A PACK DAILY, DRINKS BEER EVERY OTHER DAY. PHYSICIAL EXAMINATION: RESTING B.P.: 139/67 RESTING H.R.: 60 RESTING EKG: PROTOCOL: PHARMACOLOGIC EXERCISE TIME: 3:30 B.P. AT [place] STRESS: 121/71 IMPRESSION: LEXISCAN INJECTED, FOLLOWED BY CARIOLITE PER PROTOCOL. SEE NUCLEAR MEDICINE REPORT. NO SUPRAVENTRICULAR TACHYCARDIA, PREMATURE ATRIAL COMPLEXES, PREMATURE VENTRICULAR COMPLEXES, VENTRICULAR TACHYCARDIA. PATIENT REPORTS NO CHEST PAIN.
--- NOTE | 2024-03-31 13:13 | RAD REPORT ---
EXAM: Nuclear medicine cardiac perfusion examination with ejection fraction HISTORY: Chest pain TECHNIQUE: Rest images: 10.8 mCi technetium 99m sestamibi Stress images: 29.9 mCi of technetium 99m sestamibi; Lexiscan COMPARISON: None FINDINGS: Tomographic images: Large fixed defect involving the apex, portions of the septal and lateral baumann n ear the apex, and the entirety of the inferior wall. No evidence of reversible defects. There is pronounced splanchnic uptake both on the rest and stress images, which may contribute to the defects along the inferior wall and near the apex. Gated images: Normal wall motion and reduced ejection fraction of 34%. EDV: 195 mL ESV: 130 mL TID: 1.25. Mild transient ischemic dilation is also subjectively noted. Hypokinesia of the apex and adjacent inferior wall. IMPRESSION: No scintigraphic evidence of reversible myocardial ischemia. Large fixed defects involving the apex, adjacent septal and lateral baumann, and the entirety of the in ferior wall, suggesting prior infarcts. Portions of the fixed defects in those regions could be artifactual, related to splanchnic uptake. Hypokinesia is noted at the apex and adjacent inferior wal l. Left ventricular ejection fraction is reduced:34%
--- NOTE | 2024-03-31 14:23 | ECHO ---
HEIGHT: 6 ft 1 in WEIGHT: 144 lb 0 oz DATE OF STUDY: 03/31/[address]: Paolo Hardin MD 2-DIMENSIONAL: YES M.MODE: YES DOPPLER: YES COLOR FLOW: YES TDS: PORTABLE: DEFINITY: BUBBLE STUDY: DIAGNOSIS: CONGESTIVE HEART FAILURE CARDIAC HISTORY: CATHERIZATION: SURGERY: PROSTHETIC VALVE: PACEMAKER: MEASUREMENTS (cm) DIASTOLIC (NORMALS) SYSTOLIC (NORMALS) IVSd 0.9 (0.6-1.2) LA Diam 2.7 (1.9-4.0) LVEF 50% LVIDd 5.9 (3.5-5.7) LVIDs 4.6 (2.0-3.5) %FS 21% LVPWd 1.1 (0.6-1.2) Ao Diam 3.1 (2.0-3.7) 2 DIMENSIONAL ASSESSMENT: RIGHT ATRIUM: NORMAL LEFT ATRIUM: NORMAL RIGHT VENTRICLE: NORMAL LEFT VENTRICLE: MODERATELY DILATED TRICUSPID VALVE: NORMAL MITRAL VALVE: NORMAL PULMONIC VALVE: NORMAL AORTIC VALVE: BICUSPID, MODERATE AORTIC REGURGITATION PERICARDIAL EFFUSION: NONE AORTIC ROOT: NORMAL LEFT VENTRICULAR WALL MOTION: MILD GLOBAL HYPOKINESIS DOPPLER/COLOR FLOW: NORMAL COMMENTS: 1. MODERATE DILATED LEFT VENTRICULAR CAVITY 2. MILDLY REDUCED LEFT VENTRICULAR SYSTOLIC FUNCTION, EJECTION FRACTION 50%, MILD GLOBAL HYPOKINESIS 3. AORTIC VALVE MOST LIKELY BISCUSPID WITH MODERATE AORTIC REGURGITATION 4. NORMAL FILLING PRESSURE TECHNOLOGIST: ELISABETH GAYLE
--- NOTE | 2024-03-31 17:10 | P.CNS ---
Date of Consult: 03/31/24 Chief Complaint: chest pain History of Present Illness: Patient presented with chest pain, SOB, weakness, pain feels like pressure mid chest, radiate to both sides, report LEE, no palpitations, no syncope. Allergies No Known Drug Allergies Allergy (Verified 11/02/20 13:43) Unknown Home medications list reviewed: Yes Home Medications: Albuterol Inhaler [Ventolin Inhaler*] 2 puff IH Q6H PRN #2 inh 09/22/23 predniSONE [Deltasone*] 10 mg PO BID 5 Days #10 tab 09/22/23 Levofloxacin [Levaquin] 500 mg PO DAILY 5 Days #5 tab 12/18/23 Pantoprazole Sodium [Protonix] 40 mg PO DAILY 30 Days #30 tab 12/18/23 Sucralfate [Carafate*] 1 gm PO ACHS 5 Days #20 tab 12/18/23 - Past Medical/Surgical History Diabetic: No - Social History Smoking Status: Unknown if ever smoked Alcohol use: Yes CD- Drugs: No Caffeine use: No Place of Residence: Home Review of Systems 10-point ROS is otherwise unremarkable Physical Examination Temp Pulse Resp BP Pulse Ox 97.8 F 62 15 147/75 H 99 03/31/24 12:00 03/31/24 12:00 03/31/24 12:00 03/31/24 12:00 03/31/24 12:00 General: Alert, In no apparent distress HEENT: Atraumatic, PERRLA, Mucous membr. moist/pink, EOMI, Sclerae nonicteric Neck: Supple, 2+ carotid pulse no bruit, No LAD, Without JVD or thyroid abnormality Respiratory: Clear to auscultation bilaterally, Normal air movement Cardiovascular: Regular rate/rhythm, Normal S1 S2 Gastrointestinal: Normal bowel sounds, No tenderness Musculoskeletal: No tenderness Integumentary: No rashes Neurological: Normal gait, Normal speech, Normal tone, Normal affect Lymphatics: No axilla or inguinal lymphadenopathy - Problems (1) Chest pain Current Visit: Yes Status: Acute Plan: patient stress test is abnormal, NPO after midniht for cath in am ASA 81 daily lipitor 40 daily (2) Moderate aortic regurgitation Current Visit: Yes Status: Acute Plan: will follow up with outpatient echo (3) Heart failure with reduced ejection fraction Current Visit: Yes Status: Acute Plan: echo shows mild hypokinesis with EF 50% carvidelol 3.125 BID Lisinopril 2.5 daily
[2024-03-31] MEDS: carvediloL 3.125 MG TAB PO SCH (18:16)
[2024-03-31 18:49] LABS: Absolute Eosinophils 0.1 K/uL (0-0.5); Absolute Lymphocytes (CBC) 1.1 K/uL (0.7-4.9); Absolute Monocytes 0.5 K/uL (0.1-1.3); Basophils % 0.6 % (0-1.3); Eosinophils % 2.3 % (0-4.4); Hematocrit 27.6 % (39.6-49.0); Hemoglobin 9.3 g/dL (13.6-17.9); Lymphocytes % 23.9 % (15.3-44.8); MCH 34.1 pg (27.0-35.0); MCHC 33.7 g/dL (32.0-36.0); MPV 6.9 fL (7.6-11.3); Neutrophils % 62.2 % (41.7-73.7); Nucleated Red Blood Cells % 0.3 % (0-0); Platelets 215 thou/uL (152-406); RBC Red Blood Cell Count 2.74 M/uL (4.33-5.43); Red Cell Distribution Width 16.3 % (12.1-15.2)
[2024-03-31 18:59] LABS: Magnesium 1.6 mg/dL (1.6-2.4)
[2024-03-31] MEDS: ENSURE ENLIVE 237 ML CAN PO SCH (20:40)
--- NOTE | 2024-03-31 23:27 | CON ---
Date of Consultation: 03/31/2024 Reason For Consultation: Hematochezia. 38 pounds weight loss over the past 6 months. History Of Present Illness: This patient is a 58-year-old male without significant past medical history, presented to the hospital with hematochezia and weight loss of 38 pounds over t he past 6 months. He was noted to have elevated troponin I. His cardiac nuclear stress test today w as positive, concerning and therefore patient needs cardiac cath prior to any type of interventional procedure as per Cardiology. Past Medical History: Without significant past medical history. Home Medications: No home medications. Allergies: NKDA. Social History: , 4 children. Positive tobacco, half pack per day. Alcohol 2-4 d ay. 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 Does not know his medical problems. Mother of sanjeev g cancer. Physical Examination: Vital Signs: The patient is 6 feet 1 inch, 144 pounds. BMI of 19.0 kg/sq m. The patient stated he weighed 185 pounds approximately 6 months ago. Temperature is 98.0 degrees Fahrenheit, pulse 88, res pirations 18, blood pressure 140/80, O2 saturation 98% to 100%. HEENT: Normocephalic, atraumatic. Anicteric. Pupils equal, round, and reactive to light. Anicteri c. Oropharynx clear. Neck: Supple. No masses. Respirations: Clear to auscultation bilaterally. Cardiac: Regular rate and rhythm. Gastrointestinal: Positive bowel sounds. Soft, nontender, nondistended. No hepatosplenomegaly. Extremities: No clubbing, cyanosis. Mild muscular wasting noted. Neuro: Alert and oriented x3. Grossly nonfocal. 5/5 motor sensation to light touch. Data: The patient has a white count of 4.8, hemoglobin of 9.3, hematocrit of 27.6, and MCV of 101, p latelet count of 215, polys 62%, lymphocytes 24%, monocytes 11%, eosinophils 2%. The patient has a P T of 10.8, INR of 1.0, PTT of 29.7. The patient's sodium 140, potassium 3.0, chloride 109, bicarb 26 , BUN 3, creatinine of 0.76, glucose 105, calcium 7.7. Phosphorus , magnesium 1.6. Total bilirubin 1.1, direct bilirubin 1.4, indirect bilirubin 0.7, AST of 36, ALT of 26, alk phos 72. Trop onin I of 14, 18, and 18.6. B-type natriuretic peptide elevated 492. Total protein of 6.0, albumin 2.6. Triglycerides 44, cholesterol 128, LDL of 47, HDL of 72, lipase 28. UA: Trace ketones, 2+ nit rite, 75 leukocyte esterase, 11-20 rbc's, 20-50 white blood cells, less than 5 squamous epithelial, g reater than 50 bacteria positive urinary tract infection. Toxicology, positive for opiates and THC. CT chest, abdomen, and pelvis revealed no acute abnormalities and then stress test today, cardiac nu clear imaging revealed large fixed defect along the apex, adjacent septal in the entirety of the inferior wall suggesting prior infarcts. Portions of the fixed defect in those regions could be artifactual related to splanchnic uptake. Hypokinesia is noted at the apex and adjacent inferior wall. Left ventricular ejection fraction is reduced at 34%. Impression: 1.Hematochezia x6 months. We will need to investigate with colonoscopy. 2.38 pounds weight loss from 185 down to 147 pounds over the past 6 months concerning for cancer, sp ecifically GI cancer since the patient has had ongoing hematochezia with anemia. 3.Urinary tract infection. We will need to treat with antibiotics. 4.Abnormal stress test today. A nuclear stress test showing multiple fixed infarcts, low ejection f raction. Cardiac cath planned for tomorrow by Cardiology. Recommendations: 1.Await Cardiology evaluation. 2.Colonoscopy. 3.Serial H and H, and transfuse p.r.n. 4.Continue IV antibiotics. YOHANNES/MAHNAZ Voice ID: [id number] Report ID: [id number]
[2024-04-01] MEDS: ASPIRIN 81 MG CHEWABLE TABLET PO SCH (08:41)
[2024-04-01] MEDS: lisinopriL 5 MG TAB PO SCH (08:42)
[2024-04-01] MEDS ORDERED: HEPARIN 10,000 UNIT/10 ML VIAL IV ONE (14:45)
[2024-04-01] MEDS ORDERED: HEPA 1000U/500MLS 2,000 UNIT/1,000 ML BAG IV ONE (14:45)
[2024-04-01] MEDS ORDERED: ATROPINE SULF 1 MG/10 ML SYR IV ONE (14:46)
[2024-04-01] MEDS ORDERED: LIDOCAINE 1% 20 ML MDV ONE (14:46)
[2024-04-01] MEDS ORDERED: VERAPAMIL HCL 10 MG/4 ML VIAL IV ONE (14:46)
[2024-04-01] MEDS ORDERED: CLOPIDOGREL 75 MG TABLET ONE (14:47)
[2024-04-01] MEDS ORDERED: TICAGRELOR 90 MG TABLET PO ONE (14:48)
[2024-04-01] MEDS ORDERED: HEPARIN 5000 UNIT/ML 1 ML VIAL ONE (14:48)
[2024-04-01] MEDS ORDERED: ASPIRIN 325 MG TAB ONE (14:49)
[2024-04-01] MEDS: FENTANYL CITR 100 MCG/2 ML ONE (15:02)
[2024-04-01] MEDS: MIDAZOLAM HCL 2 MG/2 ML INJ ONE (15:02)
--- NOTE | 2024-04-01 15:35 | P.PN ---
Subjective Date of Service: 04/01/24 Chief Complaint: GI bleeding/chest pain Subjective: New changes (About to have cardiac cath - in pre-op.) Physical Examination - Vital Signs Temperature: 98.7 F Blood Pressure: 144/63 Pulse: 62 Respirations: 20 Pulse Ox (%): 100 - Studies Microbiology Data (last 24 hrs): 03/30/24 11:27 Clean Catch Urine [place] Count - Final >100,000 CFU/ML. 03/30/24 11:27 Clean Catch Urine - Final Klebsiella Pneumoniae Assessment And Plan - Current Problems (Diagnosis) (1) Hematochezia Current Visit: Yes Status: Acute (2) Abnormal weight loss Current Visit: Yes Status: Acute (3) Abnormal nuclear stress test Current Visit: Yes Status: Acute (4) Coronary artery disease Current Visit: Yes Status: Acute (5) Chest pain Current Visit: Yes Status: Acute (6) Heart failure with reduced ejection fraction Current Visit: Yes Status: Acute - Plan REC: 1) await results of cardiac cath and cardiology plan / therapy 2) colonoscopy after cardiology clearance 3) serial H&Hs and transfuse prn
[2024-04-01] MEDS ORDERED: REGADENOSON 0.4 MG/5 ML SYR IV ONE (16:03)
[2024-04-01] MEDS: NA CHLORIDE 0.9% 500 ML ONE (16:40)
[2024-04-01] MEDS: NA CHLORIDE 0.9% 1,000 ML ONE (17:20)
[2024-04-01] MEDS ORDERED: ACETAMINOPHEN 325 MG TABLET PO PRN ×2 (18:00→18:05)
[2024-04-01] MEDS ORDERED: NITROGLYCERIN 0.4 MG/TAB SL PRN (18:00)
--- NOTE | 2024-04-01 18:04 | P.PN ---
Date of Service: 04/01/24 subjective N.p.o. for heart cath today today for chest pain Review of Systems 10 point review of system negative unless listed in HPI Physical Examination vital signs Reviewed - Physical Exam General: Alert, oriented x3 In no apparent distress, Oriented x3 HEENT: Atraumatic, Normocephalic, PERRLA Neck: Supple, 2+ carotid pulse no bruit Respiratory: Normal air movement, unlabored Cardiovascular: Normal pulses Capillary refill: <2 Seconds Gastrointestinal: Normal bowel sounds, Soft and benign Musculoskeletal: No clubbing Integumentary: No rashes Neurological: Normal speech, Normal tone Assessment and Plan - Plan Chest pain unspecified aortic regurgitation abnorml stress test Cardiology consult, telemetry Echo, stress test ordered MODERATE DILATED LEFT VENTRICULAR CAVITY 2. MILDLY REDUCED LEFT VENTRICULAR SYSTOLIC FUNCTION, EJECTION FRACTION 50%, MILD GLOBAL HYPOKINESIS 3. AORTIC VALVE MOST LIKELY BISCUSPID WITH MODERATE AORTIC REGURGITATION 4. NORMAL FILLING PRESSURE [facility] scheduled 04/01 NUC MED Stress Large fixed defects involving the apex, adjacent septal and lateral baumann, and the entirety of the inferior wall, suggesting prior infarcts. Portions of the fixed defects in those regions could be artifactual, related to splanchnic uptake. Hypokinesia is noted at the apex and adjacent inferior wall. Left ventricular ejection fraction is reduced:34% Hematochezia Lower GI bleeding likely secondary to anticoagualtion, heart cath Abdominal pain Dr. Suarez consulted, plan for colonoscopy CT of the chest abdomen pelvis No acute or significant abnormalities seen in the chest, abdomen or pelvis. Stable chronic findings as above. Dr suarez consulted wt 185 down to 147 pounds over the past 6 months COPD stable Resume home meds Hypokalemia Hypomagnesia Unexpected weight loss. Trend electrolytes, replete PRN 30 pound weight loss since September Alcohol use Tobacco use Educate on alcohol tobacco cessation Hepatic steatosis Left renal cyst measuring 8.3 cm -incidental findings on CT CAP previously DVT ppx lovenox Full code LOS 2-3 days Discharge Plan: Home Plan to discharge in: 48 Hours - Advance Directives Does patient have a Living Will: No Does patient have a Durable POA for Healthcare: No Time with patient 30-minute
[2024-04-01] MEDS: NA CHLORIDE 0.9% 1,000 ML IV SCH (19:34)
[2024-04-02 07:21] LABS: Anion Gap 7.2 mEq/L (5.0-15.0); Magnesium 1.7 mg/dL (1.6-2.4); Potassium 3.2 mEq/L (3.5-5.1)
--- NOTE | 2024-04-02 10:03 | P.PN ---
Date of Service: 04/02/24 subjective N.p.o. for colonscopy in am, starting prep today no reported rectal bleedibg in last 2 days Review of Systems 10 point review of system negative unless listed in HPI Physical Examination vital signs Reviewed - Physical Exam General: Alert, In no apparent distress, Oriented x3 HEENT: Atraumatic, Normocephalic, PERRLA Neck: Supple, 2+ carotid pulse no bruit Respiratory: Normal air movement, equal unlabored Cardiovascular: Normal pulses Capillary refill: <2 Seconds Gastrointestinal: Normal bowel sounds, Soft and benign Musculoskeletal: No clubbing Integumentary: No rashes Neurological: Normal speech, Normal tone Assessment and Plan - Plan Chest pain unspecified abnorml stress test. aortic regurgitation heart failure reduced ejection fraction Cardiology consult, telemetry Echo, stress test ordered MODERATE DILATED LEFT VENTRICULAR CAVITY 2. MILDLY REDUCED LEFT VENTRICULAR SYSTOLIC FUNCTION, EJECTION FRACTION 50%, MILD GLOBAL HYPOKINESIS 3. AORTIC VALVE MOST LIKELY BISCUSPID WITH MODERATE AORTIC REGURGITATION 4. NORMAL FILLING PRESSURE [facility] scheduled 04/01 NUC MED Stress Large fixed defects involving the apex, adjacent septal and lateral baumann, and the entirety of the inferior wall, suggesting prior infarcts. Portions of the fixed defects in those regions could be artifactual, related to splanchnic uptake. Hypokinesia is noted at the apex and adjacent inferior wall. Left ventricular ejection fraction is reduced:34% Hematochezia Lower GI bleeding likely secondary to anticoagualtion, heart cath Abdominal pain Dr. Suarez consulted, plan for colonoscopy CT of the chest abdomen pelvis No acute or significant abnormalities seen in the chest, abdomen or pelvis. Stable chronic findings as above. Dr suarez consulted wt 185 down to 147 pounds over the past 6 months colon sched 04/02 started colon prep- COPD stable Resume home meds Hypokalemia Hypomagnesia Unexpected weight loss. Trend electrolytes, replete PRN 30 pound weight loss since September Alcohol use Tobacco use Educate on alcohol tobacco cessation Hepatic steatosis Left renal cyst measuring 8.3 cm -incidental findings on CT CAP previously DVT ppx lovenox Full code LOS 2-3 days Discharge Plan: Home Plan to discharge in: 48 Hours - Advance Directives Does patient have a Living Will: No Does patient have a Durable POA for Healthcare: No Time with patient 35-minute
[2024-04-02] MEDS: POTASSIUM 25 MEQ EFFERV TAB PO ONE (12:03)
[2024-04-02] MEDS: BISACODYL E.C. 5 MG TAB PO ONE (12:20)
[2024-04-02] MEDS: MAGNESIUM CITRATE 300 ML BOT PO SCH ×2 (13:00→23:45)
[2024-04-02] MEDS: MAGNESIUM CITRATE 300 ML BOT ONE (15:06)
[2024-04-02] MEDS: METOCLOPRAMIDE 5 MG TAB PO SCH (15:38)
--- NOTE | 2024-04-02 20:51 | OP ---
Date of Procedure: 04/01/2024 Surgeon: CASSIE LANDON Procedures Performed: 1.Selective coronary angiogram. 2.Left heart catheterization. 3.FFR of mid left anterior descending, which was insignificant at 0.88. Indication: Unstable angina with abnormal stress test. Access: Right radial artery 6-Surinamese, closed with TR band. Complications: None. Bleeding: Less than 50 mL. Total Sedation Time: 1 hour. Description Of Procedure: After risks, benefits, and alternatives were explained, patient agreed to procedure and signed informed consent. The patient was brought into cardiac catheterization laborato , prepped and draped in sterile fashion. Then, I accessed right radial artery using pediatric micr opuncture kit, placed 6-Surinamese Slender sheath and took 5-Surinamese Eek 4 catheter into the aortic root over a J-wire. Engaged left main and then right coronary artery, took standard views and catheter w as pushed over the wire into the LV, measured LVEDP. Pullback did not record any gradient. Then, ga ve systemic heparin to assure ACT level above 250 throughout the procedure and took EBU3.5 guide into the aortic root over a J-wire, engaged left main and took the pressure wire into the aortic root and pressures were equalized and then the wire was advanced into the LAD passing the area of stenosis an d then FFR was performed using a Lexiscan. It was negative at 0.88. A wire was pulled back. There was no drift. Final angiogram showed no complication. Then, removed the wire and the catheter and t he sheath 6-Surinamese and placed a TR band with good hemostasis. Findings: 1.Left main: Large and normal. 2.LAD: Proximal mid segment large vessel and normal. There is focal mid to distal 40% to 50% steno sis. FFR was 0.88. Rest of the LAD and diagonals are normal. 3.Left circumflex: Large and dominant and normal. 4.RCA: Small, nondominant with mid 40% stenosis. 5.LVEDP is normal at 9 mmHg. Conclusion: Mild nonobstructive coronary artery disease. Recommendation: Medical management. SR/MODL Voice ID: [id number] Report ID: [id number]
--- NOTE | 2024-04-02 21:24 | CON ---
Reason For Consultation: Chest pain. History Of Present Illness: A 58-year-old male who presented to the emergency room with lower GI ble ed. However, he started having chest discomfort, pressure-like, radiates to the neck and the shoulde r and kept going on and off in an aesthetic manner. A stress test was performed and showed abnormali ty, hence the patient was coronary angiogram today. Reviewed in by bedside. Denies having any active chest pain at this moment. Past Medical History: Anemia. Medications: Refer to reconciliation sheet for detailed list. Allergies: NO KNOWN DRUG ALLERGIES. Family History: No premature coronary artery disease or cancer. Social History: He is an ex-smoker. Does not smoke now. Does not drink, use any drugs, but he is o n chronic pain management. Review of Systems: All systems reviewed, they are negative except as mentioned in HPI. Physical Examination: Vital Signs: Reviewed. Head and Neck: Pupils are equal, reactive to light. Intact eye movements. No JVD. No cervical lym phadenopathy. Neck: Supple. Thyroid is not enlarged. Lungs: Clear to auscultation bilaterally. No rhonchi, wheezing, or crackles. No accessory muscle u se. Heart: Regular rate and rhythm. No extra sounds. Abdomen: Soft, nontender. Bowel sounds positive. No organomegaly. No masses or hernia. No rigidi ty or rebound. Extremities: No edema, clubbing, cyanosis. Intact pulses. Skin: No rash. No nodule Neurologic: Alert, awake, oriented x3. No acute focal deficits appreciated. Investigations: Troponins are negative. BUN is 3, creatinine 0.67, and hemoglobin is 9.3 and stress test showed large scar involving anterolateral wall and apex suggestive of the LAD abnormality. Assessment And Recommendations: 1.Chest pain with abnormal stress test. Plan for coronary angiogram today. He is n.p.o. 2.Hypertension. Blood pressure is controlled. Continue current therapy with carvedilol and lisinop ril. 3.Anemia with the H and H is stable. No active bleeding. Further recommendations to follow after t he coronary angiogram. SR/MODL Voice ID: [id number] Report ID: [id number]
[2024-04-03] MEDS: GOLYTELY 4000 ML PO SCH (00:15)
[2024-04-03 07:15] LABS: Absolute Eosinophils 0.1 K/uL (0-0.5); Absolute Lymphocytes (CBC) 1.1 K/uL (0.7-4.9); Absolute Monocytes 0.6 K/uL (0.1-1.3); Absolute Neutrophil 2.3 K/uL (1.8-8.0); Basophils % 0.8 % (0-1.3); Eosinophils % 2.4 % (0-4.4); Hematocrit 25.9 % (39.6-49.0); Hemoglobin 8.5 g/dL (13.6-17.9); Lymphocytes % 26.7 % (15.3-44.8); MCH 33.2 pg (27.0-35.0); MCHC 32.6 g/dL (32.0-36.0); MCV 101.7 fL (80-100); MPV 7.3 fL (7.6-11.3); Monocytes % 15.1 % (3.3-12.3); Platelets 180 thou/uL (152-406); RBC Red Blood Cell Count 2.55 M/uL (4.33-5.43); Red Cell Distribution Width 16.3 % (12.1-15.2)
[2024-04-03 07:29] LABS: Albumin 2.3 g/dL (3.4-5.0); Anion Gap 7.4 mEq/L (5.0-15.0); Potassium 3.4 mEq/L (3.5-5.1)
[2024-04-03] MEDS ORDERED: propofoL 200 MG/20 ML VIAL IV ONE (08:10)
[2024-04-03 08:52] VITALS: O2SAT 100
--- NOTE | 2024-04-03 09:54 | P.DS ---
Admission Date: 03/30/24 Discharge Date: 04/03/24 Disposition: ROUTINE DISCHARGE Discharge Condition: GOOD Reason for Admission: GI bleeding/chest pain Brief History of Present Illness: Patient is a 58-year-old gentleman who presents to the emergency room with complaints of lower GI bleeding. He states he has been bleeding profusely overnight and also this morning so he came into the ER. In the ER, he also mentions to having some discomfort. EKG and troponins been negative. Patient states that he is also lost about 30-40 pounds. He does not have much of an appetite. He has never had a colonoscopy. At this time, patient will be admitted to the hospital for the GI bleeding. Will monitor H&H closely. Will consult GI as well as cardiology. Serial troponins and EKG. Echocardiogram is ordered for the morning and cardiology is recommending stress test as well. - Physical Exam General: Alert, In no apparent distress, Oriented x3 HEENT: Atraumatic, PERRLA, Mucous membr. moist/pink, EOMI, Sclerae nonicteric Neck: Supple, 2+ carotid pulse no bruit, No LAD, Without JVD or thyroid abnormality Respiratory: Clear to auscultation bilaterally, Normal air movement Cardiovascular: Regular rate/rhythm, Normal S1 S2, No murmurs Gastrointestinal: Normal bowel sounds, Soft and benign, Non-distended, No rebound, No guarding, Tenderness Musculoskeletal: No tenderness Integumentary: No rashes Neurological: Normal gait, Normal speech, Normal strength at 5/5 x4 extr, Normal tone, Sensation intact, Normal affect Hospital Course: 58-year-old gentleman who presents to the emergency room with complaints of lower GI bleeding. He states he has been bleeding profusely overnight and also this morning so he came into the ER. In the ER, he also mentions to having some discomfort. EKG and troponins been negative. Patient states that he is also lost about 30-40 pounds. He does not have much of an appetite. He has never had a colonoscopy. At this time, patient will be admitted to the hospital for the GI bleeding. Will monitor H&H closely. Will consult GI as well as cardiology. Serial troponins and EKG. Echocardiogram is ordered for the morning and cardiology is recommending stress test, normal. Status post cardiac cath normal. Status post colonoscopy with Dr. Suarez. Tolerating diet, follow- up with PCP after discharge, Cardiology cardiology after discharge Assessment Chest pain, stress test, heart cath negative Aortic regurgitation, follow-up with cardiology after discharge Abnormal ejection fraction follow-up with cardiology Hematochezia, abdominal pain, colonoscopy this visit, follow-up with GI discharge Unintentional weight Hypokalemia, hypomagnesia him, electrolytes replaced while inpatient Alcohol use, tobacco use, educate on cessation Static steatosis-commend low-fat low-sodium Colitis-EGD 1016 patchy inflammation moderate Internal hemorrhoid NUC MED Stress Large fixed defects involving the apex, adjacent septal and lateral baumann, and the entirety of the inferior wall, suggesting prior infarcts. Portions of the fixed defects in those regions could be artifactual, related to splanchnic uptake. Hypokinesia is noted at the apex and adjacent inferior wall. Left ventricular ejection fraction is reduced:34% Echo, stress test ordered MODERATE DILATED LEFT VENTRICULAR CAVITY 2. MILDLY REDUCED LEFT VENTRICULAR SYSTOLIC FUNCTION, EJECTION FRACTION 50%, MILD GLOBAL HYPOKINESIS 3. AORTIC VALVE MOST LIKELY BISCUSPID WITH MODERATE AORTIC REGURGITATION 4. NORMAL FILLING PRESSURE [facility] scheduled 04/01 Continue home medicines as previously prescribed GOAL: Clear understanding of disease process INSTRUCTIONS: Physician Discharge Instructions: -Follow-up with cardiology after discharge -Follow-up with PCP in 1 to 2 weeks -Please call Dr. Hardin at [phone] if any questions regarding hospital stay -Please call nursing station at [phone] if any nursing or medication questions -Return to the emergency room if symptoms worsen Diet: ADA, low sodium Activity: Fall precautions Vital Signs/Physical Exam: Temp Pulse Resp BP Pulse Ox 97.8 F 61 19 149/71 H 100 04/03/24 09:01 04/03/24 09:01 04/03/24 09:01 04/03/24 09:01 04/03/24 04:00 Laboratory Data at Discharge: WBC 4.30 thou/uL (4.3-10.9) 04/03/24 07:00 Hgb 8.5 g/dL (13.6-17.9) L 04/03/24 07:00 Hct 25.9 % (39.6-49.0) L 04/03/24 07:00 Plt Count 180 thou/uL (152-406) 04/03/24 07:00 PT 10.8 SECONDS (9.4-12.5) 03/31/24 08:34 INR 0.96 03/31/24 08:34 APTT 29.7 SECONDS (24.3-36.9) 03/31/24 08:34 Sodium 144 mEq/L (136-145) 04/03/24 07:00 Potassium 3.4 mEq/L (3.5-5.1) L 04/03/24 07:00 BUN 3 mg/dL (7-18) L 04/03/24 07:00 Creatinine 0.68 mg/dL (0.70-1.30) L 04/03/24 07:00 Glucose 84 mg/dL (74-106) 04/03/24 07:00 Phosphorus 3.0 mg/dL (2.5-4.9) 04/03/24 07:00 Magnesium 1.7 mg/dL (1.6-2.4) 04/02/24 06:34 Total Bilirubin 1.1 mg/dL (0.2-1.0) H 03/30/24 09:30 AST 36 U/L (15-37) 03/30/24 09:30 ALT 26 U/L (16-61) 03/30/24 09:30 Alkaline Phosphatase 72 U/L (45-117) 03/30/24 09:30 Triglycerides 44 mg/dL (<150) 03/31/24 08:34 Cholesterol 128 mg/dL (<200) 03/31/24 08:34 HDL Cholesterol 72 mg/dL (40-60) H 03/31/24 08:34 Cholesterol/HDL Ratio 1.78 03/31/24 08:34 Lipase 28 U/L (13-75) 03/30/24 09:30 Home Medications: Albuterol Inhaler [Ventolin Inhaler*] 2 puff IH Q6H PRN #2 inh 09/22/23 predniSONE [Deltasone*] 10 mg PO BID 5 Days #10 tab 09/22/23 Sucralfate [Carafate*] 1 gm PO ACHS 5 Days #20 tab 12/18/23 Aspirin [Aspirin EC 81 MG] 81 mg PO 30 MIN BEFORE HS 30 Days #30 tab 04/03/24 Atorvastatin Calcium [Lipitor] 40 mg PO BEDTIME 30 Days #30 tab 04/03/24 Pantoprazole Sodium [Protonix] 40 mg PO DAILY 30 Days #30 tab 04/03/24 carvediloL [Coreg] 3.125 mg PO BID 30 Days #60 tab 04/03/24 lisinopriL [Prinivil*] 2.5 mg PO 30 MIN BEFORE HS 30 Days #30 tab 04/03/24 New Medications: Aspirin [Aspirin EC 81 MG] 81 mg PO 30 MIN BEFORE HS 30 Days #30 tab carvediloL [Coreg] 3.125 mg PO BID 30 Days #60 tab Atorvastatin Calcium [Lipitor] 40 mg PO BEDTIME 30 Days #30 tab lisinopriL [Prinivil*] 2.5 mg PO 30 MIN BEFORE HS 30 Days #30 tab Pantoprazole Sodium [Protonix] 40 mg PO DAILY 30 Days #30 tab Physician Discharge Instructions: 58-year-old gentleman who presents to the emergency room with complaints of lower GI bleeding. EKG and troponins been negative. Patient states that he is also lost about 30-40 pounds. He does not have much of an appetite. He has never had a colonoscopy. Will consult GI as well as cardiology. He was evaluated by cardiology, had a abnormal stress test, abnormal echo, status post post cardiac cath normal. Status post colonoscopy with Dr. Suarez. Tolerating diet, follow-up with PCP after discharge, Cardiology cardiology after discharge Assessment Chest pain, abnormal stress test, heart cath negative Aortic regurgitation, follow-up with cardiology after discharge Abnormal ejection fraction follow-up with cardiology Hematochezia, abdominal pain, colonoscopy this visit, follow-up with GI discharge Unintentional weight Hypokalemia, hypomagnesia, electrolytes replaced while inpatient Alcohol use, tobacco use, educate on cessation Static steatosis-recommend low-fat low-sodium Microcytic anemia follow-up with PCP after discharge Hyperlipidemia ASA 81 daily lipitor 40 daily echo shows mild hypokinesis with EF 50% carvidelol 3.125 BID Lisinopril 2.5 daily Lipid panel was normal Hemoglobin 8.7-9.1-9.3-8.5 NUC MED Stress Large fixed defects involving the apex, adjacent septal and lateral baumann, and the entirety of the inferior wall, suggesting prior infarcts. Portions of the fixed defects in those regions could be artifactual, related to splanchnic uptake. Hypokinesia is noted at the apex and adjacent inferior wall. Left ventricular ejection fraction is reduced:34% Echo, stress test ordered MODERATE DILATED LEFT VENTRICULAR CAVITY 2. MILDLY REDUCED LEFT VENTRICULAR SYSTOLIC FUNCTION, EJECTION FRACTION 50%, MILD GLOBAL HYPOKINESIS 3. AORTIC VALVE MOST LIKELY BISCUSPID WITH MODERATE AORTIC REGURGITATION 4. NORMAL FILLING PRESSURE [facility] scheduled 04/01 Continue home medicines as previously prescribed GOAL: Clear understanding of disease process INSTRUCTIONS: Physician Discharge Instructions: -Follow-up with cardiology after discharge -Follow-up with GI after discharge hepatic stable to -Follow-up with PCP in 1 to 2 weeks -Please call Dr. Hardin at [phone] if any questions regarding hospital stay -Please call nursing station at [phone] if any nursing or medication questions -Return to the emergency room if symptoms worsen Diet: ADA, low sodium Activity: Fall precautions Followup: Jacob Arcos MD [ACTIVE - CAN ADMIT] - NONE,NONE [Primary Care Provider] - Zeke Estes MD [ASSOCIATE-ACTIVE - CAN ADMIT] -
[2024-04-03 12:48] VITALS: BP 131/84; TEMP 97.3
--- NOTE | 2024-04-05 13:12 | EKG ---
Test Date: 2024-03-30 Test Time: 09:29:34 Bench Scientist: SUGAR MEASUREMENT RESULTS: Intervals: Rate: 78 CT: QRSD: 92 QT: 424 QTc: 483 [employer]: P: CT: QRS: 6 T: 87 INTERPRETIVE STATEMENTS: Normal sinus rhythm Cannot rule out Anteroseptal infarct, age undetermined Abnormal ECG Compared to ECG 12/16/2023 09:42:13 Left-axis deviation no longer present Myocardial infarct finding still present Electronically Signed On 04-05-24 12:57:56 CDT by Jacob Arcos
== END 2024-04-03 12:25 | disposition home or self-care (01) | DRG 377 ==
LOC: ER 09:03 → ERHOLD 14:47 → 2ND 16:06
PROVIDERS: ADMIT Hospitalist; ATTEND Hospitalist
PROC: 4A023N7 Measurement of Cardiac Sampling and Pressure, Left Heart, Percutaneous Approach (ICD-10-PCS; 2024-04-01)
PROC: B2111ZZ Fluoroscopy of Multiple Coronary Arteries using Low Osmolar Contrast (ICD-10-PCS; 2024-04-01)
PROC: 0DBN8ZX Excision of Sigmoid Colon, Via Natural or Artificial Opening Endoscopic, Diagnostic (ICD-10-PCS; 2024-04-03)
PROC: 0DBP8ZX Excision of Rectum, Via Natural or Artificial Opening Endoscopic, Diagnostic (ICD-10-PCS; principal; 2024-04-03 09:00)
DX: K92.1 Melena (principal); I50.21 Acute systolic (congestive) heart failure; Z68.1 Body mass index [BMI] 19.9 or less, adult; N39.0 Urinary tract infection, site not specified; E87.6 Hypokalemia; E83.42 Hypomagnesemia; K52.9 Noninfective gastroenteritis and colitis, unspecified; K64.8 Other hemorrhoids; I35.1 Nonrheumatic aortic (valve) insufficiency; J44.9 Chronic obstructive pulmonary disease, unspecified; R63.4 Abnormal weight loss; R07.9 Chest pain, unspecified; K76.0 Fatty (change of) liver, not elsewhere classified; N28.1 Cyst of kidney, acquired; D50.9 Iron deficiency anemia, unspecified; I25.10 Atherosclerotic heart disease of native coronary artery without angina pectoris; T45.515A Adverse effect of anticoagulants, initial encounter; Z71.6 Tobacco abuse counseling; Z79.52 Long term (current) use of systemic steroids; Z79.899 Other long term (current) drug therapy; Z87.891 Personal history of nicotine dependence
CPT/HCPCS: 36415; 71045; 71260; 74177; 76937; 78452; 80048; 80061; 80069; 80076; 80307; 81001; 83690; 83735; 83880; 84100; 84484; 85014; 85018; 85025; 85610; 85730; 87077; 87086; 87088; 87186; 88305; 93005; 93017; 93306; 93458; 96365; 96366; 96375; 99152; 99285; A4216; A9500; C1893; J0461; J0696; J1644; J2001; J2250; J2270; J2405; J2470; J2704; J2785; J3010; J3475; J3480; J7030; J7040; Q9966; Q9967

== ENCOUNTER 2024-06-08 22:05 | Emergency (ER) | payer OTHER ==
[2024-06-08] MEDS ORDERED: NA CHLORIDE 0.9% 1,000 ML ONE (22:52)
[2024-06-08 23:05] LABS: Absolute Eosinophils 0.1 K/uL (0-0.5); Absolute Lymphocytes (CBC) 1.5 K/uL (0.7-4.9); Absolute Monocytes 0.4 K/uL (0.1-1.3); Absolute Neutrophil 2.9 K/uL (1.8-8.0); Basophils % 0.9 % (0-1.3); Eosinophils % 2.4 % (0-4.4); Hematocrit 37.3 % (39.6-49.0); Hemoglobin 12.3 g/dL (13.6-17.9); Lymphocytes % 29.9 % (15.3-44.8); MCH 32.4 pg (27.0-35.0); MCHC 32.9 g/dL (32.0-36.0); MCV 98.7 fL (80-100); MPV 7.2 fL (7.6-11.3); Monocytes % 7.9 % (3.3-12.3); Neutrophils % 58.9 % (41.7-73.7); Nucleated Red Blood Cells % 0.1 % (0-0); Platelets 310 thou/uL (152-406); RBC Red Blood Cell Count 3.78 M/uL (4.33-5.43); Red Cell Distribution Width 15.2 % (12.1-15.2)
[2024-06-08 23:15] LABS: PT Prothrombin Time 9.9 SECONDS (9.4-12.5); PTT, Activated Partial Thromb 32.6 SECONDS (24.3-36.9); Protime INR 0.88
[2024-06-08 23:26] LABS: ALT/SGPT 15 U/L (16-61); Albumin/Globulin Ratio 0.8 (1.1-1.8); Alkaline Phosphatase 71 U/L (45-117); Anion Gap 11.9 mEq/L (5.0-15.0); BUN Blood Urea Nitrogen 5 mg/dL (7-18); Bicarbonate 21 mEq/L (21-32); Globulin 3.6 g/dL (2.3-3.5); Glomerular Filtration Rate 100 ml/min (=/>90); Glucose Level 101 mg/dL (74-106); Protein, Total 6.6 g/dL (6.4-8.2); Sodium Level 142 mEq/L (136-145)
[2024-06-08 23:29] LABS: AST/SGOT 23 U/L (15-37); Bilirubin Direct < 0.2 mg/dL (0-0.2); Bilirubin Total < 0.2 mg/dL (0.2-1.0); Potassium 2.9 mEq/L (3.5-5.1)
[2024-06-08] MEDS ORDERED: KCL 20 MEQ/100 mL IVPB 100 ML IV ONE (23:45)
[2024-06-08] MEDS ORDERED: ZIPRASIDONE MESYLA 20 MG/VIAL IM ONE (23:45)
[2024-06-09 00:09] LABS: Specific Gravity 1.005 (1.005-1.030); Sqamous Epithelial None Seen /HPF (None Seen); Urine Bacteria <20 /HPF (<20); Urine Bilirubin NEGATIVE (Negative); Urine Blood Negative (Negative); Urine Clarity Clear (Clear); Urine Color Colorless (Yellow); Urine Crystals Unidentified Few /HPF (None Seen); Urine Culture Reflex Order NOT NEEDED; Urine Glucose NEGATIVE (Negative); Urine Ketones NEGATIVE (Negative); Urine Microscopic Reflex YN ORDER UMIC; Urine Mucus Slight /HPF (None Seen); Urine Nitrite NEGATIVE (Negative); Urine Protein NEGATIVE (Negative); Urine RBC <5 /HPF (None Seen); Urine Urobilinogen Normal (Normal); Urine WBC <5 /HPF (<5); Urine pH 5.5 (5.0-7.0)
[2024-06-09 00:18] LABS: Barbiturates NEGATIVE (NEGATIVE); Benzodiazepines NEGATIVE (NEGATIVE); Cocaine NEGATIVE (NEGATIVE); METHAMPHETAM NEGATIVE (NEGATIVE); Methadone NEGATIVE (NEGATIVE); Opiates NEGATIVE (NEGATIVE); Phencyclidine NEGATIVE (NEGATIVE); THC Cannibis NEGATIVE (NEGATIVE)
[2024-06-09] MEDS ORDERED: THIAMINE 200 MG/2 ML INJ ONE (03:04)
[2024-06-09] MEDS ORDERED: FOLIC ACID 5 MG/ML VIAL ONE (03:05)
[2024-06-09] MEDS ORDERED: MULTIVITAMINS 10 ML VIAL (INJ) IV ONE (03:05)
[2024-06-09] MEDS ORDERED: NA CHLORIDE 0.9% 1,000 ML ONE (03:06)
--- NOTE | 2024-06-09 06:26 | EDPHYS ---
Physician Documentation [facility] Name: Zheng Nicholas Age: 58 yrs Sex: Male : 1965 Arrival Date: 06/08/2024 Time: 22:05 Bed 6 Private MD: ED Physician Devante Hearn HPI: 06/08 22:25 This 58 yrs old Black Male presents to ER via EMS with complaints of Alcohol cp Intoxication. 22:25 The patient's problem is reported as difficulty walking, off balance. cp 22:25 Onset: The symptoms/episode began/occurred today. Context: occurred at home, Possible cp contributing factors include: Patient is known to have ingested ETOH: EMS reports family was concerned patient consumed more alcohol than usual. Patient's baseline: Neuro: alert and fully oriented, Motor: no deficits, Ambulation: walks without assistance, Speech: normal. Historical: - Allergies: 22:09 No Known Allergies; cp4 - Immunization history:: Adult Immunizations unknown. - Infectious Disease History:: Denies. - Social history:: Smoking status: unknown. ROS: 22:30 Constitutional: Negative for body aches, chills, fever, cp 22:30 Cardiovascular: Negative for chest pain, cp 22:30 Respiratory: Negative for cough, shortness of breath, wheezing, 22:30 Abdomen/GI: Negative for abdominal pain, vomiting, diarrhea, constipation, 22:30 Neuro: Positive for altered mental status, gait disturbance, 22:30 Psych: Negative for auditory hallucinations, visual hallucinations, suicide gesture, suicidal ideation, 22:30 All other systems are negative, 06/09 06:24 Constitutional: Positive for poor balance as reported sp4 Exam: 06/08 22:35 Constitutional: The patient appears in no acute distress, alert, awake, cp non-diaphoretic, non-toxic, well developed, well nourished, 22:35 Head/Face: Normocephalic, atraumatic. cp 22:35 Eyes: Pupils: equal, round, and reactive to light and accomodation, Conjunctiva: normal, no exudate, no injection, Sclera: no appreciated abnormality, Lids and lashes: appear normal, bilaterally, 22:35 ENT: External ear(s): are unremarkable, Nose: is normal, Mouth: Lips: moist, Oral mucosa: moist, Posterior pharynx: Airway: no evidence of obstruction, patent, 22:35 Chest/axilla: Inspection: normal, 22:35 Cardiovascular: Rate: normal, Rhythm: regular, 22:35 Respiratory: the patient does not display signs of respiratory distress, Respirations: normal, no use of accessory muscles, no retractions, labored breathing, is not present, Breath sounds: are clear throughout, no decreased breath sounds, no stridor, no wheezing, 22:35 Abdomen/GI: Inspection: abdomen appears normal, Palpation: abdomen is soft and non-tender, in all quadrants, 22:35 Neuro: Orientation: to person, situation, Mentation: able to follow commands, slow to respond, Motor: moves all fours, no focal deficits, 22:53 ECG was reviewed by the Attending Physician. cp Vital Signs: 22:08 BP 98 / 68; Pulse 65; Resp 16; Temp 97.8; Pulse Ox 98% ; Pain 0/10; cp4 22:16 BP 104 / 72 LA (auto/reg); Pulse 80; Pulse Ox 100% on R/A; sa1 23:17 BP 116 / 72; Pulse 82; Resp 17; Pulse Ox 99% ; cp4 06/09 00:12 BP 93 / 60; Pulse 67; Resp 16; Pulse Ox 98% ; cp4 01:18 BP 101 / 64; Pulse 66; Resp 15; Pulse Ox 99% ; jj7 02:30 BP 116 / 87; Pulse 76; Resp 17; Pulse Ox 100% ; cp4 03:55 BP 103 / 51; Pulse 62; Resp 18; Pulse Ox 100% ; cp4 04:53 BP 106 / 80; Pulse 56; Resp 18; Pulse Ox 100% ; cp4 06:00 BP 101 / 58; Pulse 71; Resp 17; Pulse Ox 100% ; cp4 06/08 22:08 Pain Scale: Adult cp4 MDM: 06/08 22:14 Medical Screening Exam initiated cp 06/09 06:23 Differential Diagnosis: electrolyte abnormality, alcohol intoxication, hypoglycemia, sp4 overdose, seizure. Data reviewed: vital signs, nurses notes, EMS record, lab test result(s). Consideration of Admission/Observation Escalation of care including admission/observation considered. ED course: Patient woke up at 624 has normal mental status. Patient stable for discharge. Advised to the patient to decrease alcohol consumption. . 06/08 22:23 Order name: Acetaminophen; Complete Time: 23:35 cp 06/08 22:23 Order name: Basic Metabolic Panel; Complete Time: 23:35 cp 06/08 22: Order name: CBC with Diff; Complete Time: 23:35 cp 06/08 22:23 Order name: ETOH Level; Complete Time: 23:35 cp 06/08 23:35 Interpretation: Reviewed. cp 06/08 22:23 Order name: Hepatic Function; Complete Time: 23:35 cp 06/08 22:23 Order name: PT-INR; Complete Time: 23:35 cp 06/08 22:23 Order name: Ptt, Activated; Complete Time: 23:35 cp 06/08 22:23 Order name: Salicylate; Complete Time: 23:35 cp 06/08 22:23 Order name: Urinalysis w/ reflexes; Complete Time: 00:24 cp 06/09 00:24 Interpretation: Reviewed. 06/08 22:23 Order name: Urine Drug Screen; Complete Time: 00:24 cp 06/09 00:24 Interpretation: Reviewed. 06/08 22:23 Order name: EKG - Nurse/Tech; Complete Time: 22:49 cp 06/08 22:23 Order name: IV Saline Lock; Complete Time: 22:49 cp 06/08 22:23 Order name: Labs collected and sent; Complete Time: 22:49 cp 06/08 22:23 Order name: Suicide Screening (Slovan); Complete Time: 22:26 cp EC/25 22:53 Rate is 75 beats/min. Rhythm is regular. [place] interval is normal. QRS interval is normal. cp QT interval is normal. T waves are Inverted in leads V5, V6. Interpreted by me. Reviewed by me. Administered Medications: 22:55 Not Given (Patient Refused): ns 0.9% 1000 ml IV at 1 bolus Per protocol; to be given as cp4 a bolus over 60 minutes 23:53 Drug: Geodon IM 10 mg IM once Route: IM; Site: right deltoid; cp4 06/09 03:11 Follow up: Response: No adverse reaction cp4 00:07 Drug: NS 0.9% IV 500 ml 500 ml IV at 250 ml/hr once; to give with IV potassium Volume: cp4 500 ml; Route: IV; Rate: 250 ml/hr; Site: right antecubital; 02:31 Follow up: IV Status: Completed infusion cp4 00:08 Drug: Potassium Chloride IV 20 mEq IV at calculated rate once; administer over 1-2 cp4 hours Route: IV; Rate: calculated rate; Site: right antecubital; 02:32 Follow up: IV Status: Completed infusion cp4 03:10 Drug: Banana Bag - (Multivitamin IV 1 amp, NS 0.9% IV 1000 ml, Thiamine IV 100 mg, cp4 foLIC Acid IVPB 1 mg) IV at 125 ml/hr once Route: IV; Rate: 125 ml/hr; Site: right antecubital; 07:23 Follow up: Response: No adverse reaction; IV Status: Order to discontinue infusion; IV ko1 Intake: 550ml Disposition: 06:23 Co-signature as Attending Physician, Devante Hearn MD I agree with the assessment sp4 and plan of care. I reviewed the patient's care provided by Advanced Practice Provider \T\ agree w/ the diagnosis \T\ care plan. I personally saw the pt \T\ performed a substantive portion of the visit, incldng all aspects of the (History/Exam/Medical Decision Making). Disposition Summary: 06/09/24 06:25 Discharge Ordered Notes: Location: Home sp4 Problem: new sp4 Symptoms: have improved sp4 Condition: Stable sp4 Diagnosis - Alcohol abuse with intoxication, uncomplicated sp4 Followup: sp4 - With: Private Physician - When: 7 - 10 days - Reason: Recheck today's complaints Discharge Instructions: - Discharge Summary Sheet sp4 - Alcohol Intoxication sp4 Forms: - Patient Portal Instructions sp4 Signatures: Dispatcher [employer] EDMS Didier Singer PA PA cp Potepalov, Sergey, MD MD sp4 Taryn Fontaine cp4 Tabatha Daigle RN ko1
--- NOTE | 2024-06-09 06:26 | ER ---
Nurse's Notes [facility] Name: Zheng Nicholas Age: 58 yrs Sex: Male : 1965 Arrival Date: 06/08/2024 Time: 22:05 Bed 6 Private MD: Diagnosis: Alcohol abuse with intoxication, uncomplicated Presentation: 06/08 22:08 Chief complaint: EMS states: alcohol intoxication. Patient was unable to walk without cp4 falling and family states he usually drinks but not like this. Coronavirus screen: Client denies travel out of the [place] in the last 14 days. At this time, the client does not indicate any symptoms associated with coronavirus-19. Ebola Screen: Patient negative for fever greater than or equal to 101.5 degrees Fahrenheit, and additional compatible Ebola Virus Disease symptoms Patient denies exposure to infectious person. Patient denies travel to an Ebola-affected area in the 21 days before illness onset. No symptoms or risks identified at this time. Initial Sepsis Screen: Does the patient meet any 2 criteria? No. Patient's initial sepsis screen is negative. Does the patient have a suspected source of infection? No. Patient's initial sepsis screen is negative. Risk Assessment: Do you want to hurt yourself or someone else? Patient reports no desire to harm self or others. Onset of symptoms is unknown. 22:08 Method Of Arrival: EMS: [facility] 4 22:08 Acuity: DENISA 3 cp4 Triage Assessment: 22:09 General: Appears in no apparent distress. comfortable, Behavior is appropriate for age, cp4 drowsy. Pain: Denies pain. EENT: No signs and/or symptoms were reported regarding the EENT system. Neuro: Level of Consciousness is awake, alert, obeys commands, Oriented to person, place, time, situation. Cardiovascular: Patient's skin is warm and dry. Respiratory: Airway is patent Respiratory effort is even, unlabored. GI: No signs and/or symptoms were reported involving the gastrointestinal system. : No signs and/or symptoms were reported regarding the genitourinary system. Derm: No signs and/or symptoms reported regarding the dermatologic system. Musculoskeletal: No signs and/or symptoms reported regarding the musculoskeletal system. Historical: - Allergies: 22:09 No Known Allergies; cp4 - Immunization history:: Adult Immunizations unknown. - Infectious Disease History:: Denies. - Social history:: Smoking status: unknown. Screenin:12 Abuse screen: Denies threats or abuse. Nutritional screening: No deficits noted. cp4 Tuberculosis screening: No symptoms or risk factors identified. 22:14 [facility] ED Fall Risk Assessment (Adult) History of falling in the last 3 months, cp4 including since admission Yes- single mechanical fall (1 pt) Confusion or Disorientation Yes (5 pts) Intoxicated or Sedated Yes (3 pts) Impaired Gait Yes (1 pt) Mobility Assist Device Used No (0 pt) Altered Elimination No (0 pt) Score/Fall Risk Level 3 or more points = High Risk Oriented to surroundings, Maintained a safe environment, Assessed \\T\\ reinforced patient's understanding of fall precautions, Hourly rounding (assess needs \\T\\ fall precautionary measures) done, Used ambulatory aids as needed (educated on \\T\\ assisted with), Used gait belt as appropriate Implemented a Fall Risk Plan of Care. Assessment: 22:12 Reassessment: No changes from previously documented assessment. cp4 23:30 Reassessment: Patient appears in no apparent distress at this time. Patient and/or cp4 family updated on plan of care and expected duration. Pain level reassessed. Patient is alert, oriented x 3, equal unlabored respirations, skin warm/dry/pink. 06/09 00:30 Reassessment: Patient appears in no apparent distress at this time. Patient and/or cp4 family updated on plan of care and expected duration. Pain level reassessed. Patient is alert, oriented x 3, equal unlabored respirations, skin warm/dry/pink. 01:30 Reassessment: Patient appears in no apparent distress at this time. Patient and/or cp4 family updated on plan of care and expected duration. Pain level reassessed. Patient is alert, oriented x 3, equal unlabored respirations, skin warm/dry/pink. 02:30 Reassessment: Patient appears in no apparent distress at this time. Patient and/or cp4 family updated on plan of care and expected duration. Pain level reassessed. Patient is alert, oriented x 3, equal unlabored respirations, skin warm/dry/pink. 03:30 Reassessment: Patient appears in no apparent distress at this time. Patient and/or cp4 family updated on plan of care and expected duration. Pain level reassessed. Patient is alert, oriented x 3, equal unlabored respirations, skin warm/dry/pink. 04:30 Reassessment: Patient appears in no apparent distress at this time. Patient and/or cp4 family updated on plan of care and expected duration. Pain level reassessed. Patient is alert, oriented x 3, equal unlabored respirations, skin warm/dry/pink. 05:35 Reassessment: Patient appears in no apparent distress at this time. Patient and/or cp4 family updated on plan of care and expected duration. Pain level reassessed. Patient is alert, oriented x 3, equal unlabored respirations, skin warm/dry/pink. Psych: 06/08 22:26 [place] Suicide Severity Screening: In the past month, have you wished you were cp4 or wished you could go to sleep and not wake up? Patient responds "No." "In the past month, have you actually had any thoughts of killing yourself?" Patient responds "no." "In your lifetime, have you ever done anything, started to do anything, or prepared to do anything to end your life?" Patient responds "no.". Subjective: Patient's mood is normal Delusions are denied, Hallucinations are denied Having thoughts of no suicidal or homicidal thoughts. Objective: Patient is cooperative, Speech is normal, Affect is appropriate. Patient uses daily. Vital Signs: 22:08 BP 98 / 68; Pulse 65; Resp 16; Temp 97.8; Pulse Ox 98% ; Pain 0/10; cp4 22:16 BP 104 / 72 LA (auto/reg); Pulse 80; Pulse Ox 100% on R/A; sa1 23:17 BP 116 / 72; Pulse 82; Resp 17; Pulse Ox 99% ; cp4 06/09 00:12 BP 93 / 60; Pulse 67; Resp 16; Pulse Ox 98% ; cp4 01:18 BP 101 / 64; Pulse 66; Resp 15; Pulse Ox 99% ; jj7 02:30 BP 116 / 87; Pulse 76; Resp 17; Pulse Ox 100% ; cp4 03:55 BP 103 / 51; Pulse 62; Resp 18; Pulse Ox 100% ; cp4 04:53 BP 106 / 80; Pulse 56; Resp 18; Pulse Ox 100% ; cp4 06:00 BP 101 / 58; Pulse 71; Resp 17; Pulse Ox 100% ; cp4 12 22:08 Pain Scale: Adult cp4 ED Course: 06/08 22:07 Patient arrived in ED. cp4 22:09 Triage completed. cp4 22:09 Arm band placed on right wrist. Patient placed in an exam room, on a stretcher. cp4 22:12 Bed in low position. Call light in reach. Side rails up X 1. cp4 22:12 No provider procedures requiring assistance completed. cp4 22:14 Didier Singer PA is PHCP. cp 22:14 Devante Hearn MD is Attending Physician. cp 22:49 Taryn Fontaine is Primary Nurse. cp4 22:50 Initial lab(s) drawn, by [facility], sent to lab. Inserted saline lock: 22 gauge in right cp4 antecubital area, using aseptic technique. Blood collected. Flushed with 10 mL NS. 23:02 EKG done, by ED staff, reviewed by Didier RENTERIA. sa1 06/09 06:47 IV discontinued, intact, bleeding controlled, No redness/swelling at site. Pressure sa1 dressing applied. 07:22 Provided Education on: discharge. ko1 Administered Medications: 06/08 22:55 Not Given (Patient Refused): ns 0.9% 1000 ml IV at 1 bolus Per protocol; to be given as cp4 a bolus over 60 minutes 23:53 Drug: Geodon IM 10 mg IM once Route: IM; Site: right deltoid; cp4 06/09 03:11 Follow up: Response: No adverse reaction cp4 00:07 Drug: NS 0.9% IV 500 ml 500 ml IV at 250 ml/hr once; to give with IV potassium Volume: cp4 500 ml; Route: IV; Rate: 250 ml/hr; Site: right antecubital; 02:31 Follow up: IV Status: Completed infusion cp4 00:08 Drug: Potassium Chloride IV 20 mEq IV at calculated rate once; administer over 1-2 cp4 hours Route: IV; Rate: calculated rate; Site: right antecubital; 02:32 Follow up: IV Status: Completed infusion cp4 03:10 Drug: Banana Bag - (Multivitamin IV 1 amp, NS 0.9% IV 1000 ml, Thiamine IV 100 mg, cp4 foLIC Acid IVPB 1 mg) IV at 125 ml/hr once Route: IV; Rate: 125 ml/hr; Site: right antecubital; 07:23 Follow up: Response: No adverse reaction; IV Status: Order to discontinue infusion; IV ko1 Intake: 550ml Medication: 06/08 22:12 VIS not applicable for this client. cp4 Intake: 06/09 07:23 IV: 550ml; Total: 550ml. ko1 Outcome: 06:25 Discharge ordered by . roxann 07:22 Discharged to home via wheelchair, with family, ko1 07:22 Condition: stable 07:22 Discharge instructions given to patient, Instructed on discharge instructions, follow up and referral plans. Demonstrated understanding of instructions, follow-up care, 07:23 Patient left the ED. ko1 Signatures: Didier Singer PA PA cp Oliver, Kathy, RN RN ko1 Kelley Duffy RN RN jj7 Devante Hearn MD MD sp4 Taryn Fontaine cp4 Sultan jennifer Shah Corrections: (The following items were deleted from the chart) 06/08 22:14 22:12 [facility] ED Fall Risk Assessment (Adult) History of falling in the last 3 months, cp4 including since admission No falls in past 3 months (0 pts) Confusion or Disorientation No (0 pts) Intoxicated or Sedated No (0 pts) Impaired Gait No (0 pts) Mobility Assist Device Used No (0 pt) Altered Elimination No (0 pt) Score/Fall Risk Level 0 - 2 = Low Risk Oriented to surroundings, Maintained a safe environment, Assessed \\T\\ reinforced patient's understanding of fall precautions, Hourly rounding (assess needs \\T\\ fall precautionary measures) done, cp4 06/09 06:47 06:47 Removal of peripheral IV. Catheter intact, dressing applied. sa1 sa1 06:47 06:47 Removal of peripheral IV. Catheter intact, dressing applied. sa1 sa1
[2024-06-09 07:28] VITALS: TEMP 97.8
[2024-06-09 07:36] VITALS: O2SAT 100
[2024-06-09 07:41] VITALS: BP 101/58
--- NOTE | 2024-06-10 13:40 | EKG ---
Test Date: 2024-06-08 Test Time: 22:47:50 Nurse Informatics Educator: MEASUREMENT RESULTS: Intervals: Rate: 75 AL: 178 QRSD: 92 QT: 436 QTc: 486 [place]: P: 78 AL: 178 QRS: -53 T: -24 INTERPRETIVE STATEMENTS: Sinus rhythm with premature atrial complexes Left anterior fascicular block T wave abnormality, consider lateral ischemia Abnormal ECG Compared to ECG 03/30/2024 09:29:34 Atrial premature complex(es) now present Left anterior fascicular block now present T-wave abnormality now present Possible ischemia now present Myocardial infarct finding no longer present Electronically Signed On 06-10-24 13:36:45 ESE TEACHER by Marco A Shay
== END 2024-06-09 07:23 | disposition home or self-care (01) ==
LOC: ER 22:05
DX: F10.129 Alcohol abuse with intoxication, unspecified (principal)
CPT/HCPCS: 96365; 96367; 93005; 85025; 81001; 80048; 36415; 85610; 80076; 85730; 80307; 96372; 99285; 96366; 80143; 80179; 82077; J3411; J3480; J3486; J7030 ×2

== ENCOUNTER 2024-08-06 23:48 | Inpatient (IN) | payer OTHER, SELFPAY ==
[2024-08-07] MEDS ORDERED: MORPHINE 4 MG/ML SYR ONE ×3 (00:36→13:47)
--- NOTE | 2024-08-07 00:37 | ER ---
Nurse's Notes [facility] Name: Zheng Nicholas Age: 59 yrs Sex: Male : 1965 Arrival Date: 08/06/2024 Time: 23:48 Bed 17 Private MD: Diagnosis: Nondisplaced intertrochanteric fracture of right femur;Fall on same level, unspecified;Alcohol abuse Presentation: 08/07 00:12 Chief complaint: Patient states: PT STATES HE WENT TO STAND UP AND HIS RIGHT HIP "WENT br2 OUT"...PT C/O RIGHT HIP PAIN. Coronavirus screen: Client denies travel out of the [place] in the last 14 days. Ebola Screen: Patient denies travel to an Ebola-affected area in the 21 days before illness onset. Initial Sepsis Screen: Does the patient meet any 2 criteria? No. Patient's initial sepsis screen is negative. Does the patient have a suspected source of infection? No. Patient's initial sepsis screen is negative. Risk Assessment: Do you want to hurt yourself or someone else?. Onset of symptoms was August 06, 2024 at 23:15. 00:12 Method Of Arrival: EMS: [facility] br2 00:12 Acuity: DENISA 4 br2 00:12 Care prior to arrival: None. Mechanism of Injury: Fall from standing position. Trauma br2 event details: [facility] Triage Assessment: 00:15 General: Appears uncomfortable, Behavior is calm, cooperative. Pain: Complains of pain br2 in right hip. Respiratory: Airway is patent Respiratory effort is even, unlabored, Respiratory pattern is regular, symmetrical. Musculoskeletal: Reports pain in right hip. Historical: - Allergies: 00:15 No Known Allergies; br2 - Home Meds: 00:15 None [Active]; br2 - Immunization history:: Adult Immunizations not up to date. - Infectious Disease History:: Denies. - Immunization history: Last tetanus immunization: unknown. - Social history:: Smoking status: Patient reports the use of cigarette tobacco products, smokes one-half pack cigarettes per day. Screenin:12 [facility] ED Fall Risk Assessment (Adult) History of falling in the last 3 months, br2 including since admission Yes- single mechanical fall (1 pt) Confusion or Disorientation No (0 pts) Intoxicated or Sedated Yes (3 pts) Impaired Gait No (0 pts) Mobility Assist Device Used No (0 pt) Altered Elimination No (0 pt) Score/Fall Risk Level 0 - 2 = Low Risk Oriented to surroundings, Maintained a safe environment. Abuse screen: Denies threats or abuse. Denies injuries from another. Nutritional screening: No deficits noted. Tuberculosis screening: No symptoms or risk factors identified. Primary Survey: 00:12 NO uncontrolled hemorrhage observed. br2 00:12 Breathing/Chest: Respiratory effort: spontaneous, unlabored, Breath sounds: clear, br2 bilaterally. Circulation: No external hemorrhage present. Regular and strong central pulse, skin warm/dry/normal color. Disability Client is alert. Exposure/Environment: A warming method has been applied: A warm blanket has been provided to the patient. Vital Signs: 00:12 BP 101 / 63; Pulse 69; Resp 18 S; Temp 97.4(O); Pulse Ox 100% on R/A; Weight 77.11 kg; br2 Height 6 ft. 1 in. ; Pain 10/10; 00:12 Body Mass Index 22.43 (77.11 kg, 185.42 cm) br2 00:12 Pain Scale: Adult br2 Nicanor Coma Score: 00:12 Eye Response: spontaneous(4). Motor Response: obeys commands(6). Verbal Response: br2 oriented(5). Total: 15. Trauma Score (Adult): 00:12 Eye Response: spontaneous(1); Verbal Response: oriented(1); Motor Response: obeys br2 commands(2); Systolic BP: > 89 mm Hg(4); Respiratory Rate: 10 to 29 per min(4); Nicanor Score: 15; Trauma Score: 12 ED Course: 08/06 23:50 Patient arrived in ED. jj6 23:51 Niraj Moon DO is Attending Physician. ms3 23:57 Tere Hernandez, TRAVIS is Primary Nurse. br2 08/07 00:12 Patient has correct armband on for positive identification. Bed in low position. Call br2 light in reach. Side rails up X 1. Provided Education on: PLAN OF CARE. 00:12 Patient maintains SpO2 saturation greater than 95% on room air. br2 00:15 Triage completed. br2 00:21 Hip Right 2 View XRAY In Process Unspecified. EDMS 00:36 Melita Meléndez MD is Hospitalizing Provider. ms3 07:08 Primary Nurse role handed off by Tere Hernandez, TRAVIS bp 07:08 Abiodun Vo, RN is Primary Nurse. bp Administered Medications: 00:48 Drug: morphine IVP or IV 4 mg IVP once over 4 mins Route: IVP; Infused Over: 4 mins; br2 Site: right antecubital; 01:30 Follow up: Response: Pain is decreased br2 01:10 Drug: Calcium Gluconate IVPB 2 grams IVPB once over 60 mins; (mix in NS 100 mL) Route: br2 IVPB; Infused Over: 60 mins; Site: right antecubital; 02:15 Follow up: IV Status: Completed infusion; IV Intake: 100ml br2 Intake: 02:15 IV: 100ml; Total: 100ml. br2 Outcome: 00:36 Decision to Hospitalize by Provider. ms3 01:51 Patient's length of stay in the Emergency Department was greater than 2 hours. NO MED br2 SURGE BEDSPatient's length of stay extended due to 14:34 Patient left the ED. bp Signatures: Dispatcher [employer] EDMS Abiodun Vo, RN RN bp Niraj Moon DO DO ms3 Shelia Hernandez jj6 Tere Hernandez, TRAVIS RN br2
--- NOTE | 2024-08-07 00:37 | EDPHYS ---
Physician Documentation [facility] Name: Zheng Nicholas Age: 59 yrs Sex: Male : 1965 Arrival Date: 08/06/2024 Time: 23:48 Bed 17 Private MD: ED Physician Niraj Moon HPI: 08/06 23:54 This 59 yrs old Black Male presents to ER via Unassigned with complaints of Fall ms3 Injury, Hip Pain. 23:54 59-year-old male with no past medical history presents to the emergency department via [facility] after getting up from his recliner and his right leg collapsed causing him to fall. Patient states he is now experiencing 10/10 right hip pain. Patient states the pain is worse with movement of the right leg. Patient denies hitting his head or loss of consciousness with the fall. Patient endorses drinking beer tonight.. Historical: - Allergies: 08/07 00:15 No Known Allergies; br2 - Home Meds: 00:15 None [Active]; br2 - Immunization history:: Adult Immunizations not up to date. - Infectious Disease History:: Denies. - Immunization history: Last tetanus immunization: unknown. - Social history:: Smoking status: Patient reports the use of cigarette tobacco products, smokes one-half pack cigarettes per day. ROS: 08/06 23:54 Constitutional: Negative for fever, and chills. Cardiovascular: Negative for chest ms3 pain, and palpitations. Respiratory: Negative for shortness of breath, cough, wheezing, and pleuritic chest pain, Abdomen/GI: Negative for abdominal pain, nausea, vomiting, diarrhea, and constipation, MS/extremity: Positive for pain, of the Right hip, Exam: 23:54 Constitutional: This is a well developed, well nourished patient who is awake, alert, ms3 and in no acute distress. Cardiovascular: Regular rate and rhythm with a normal S1 and S2. No gallops, murmurs, or rubs. Normal PMI, no JVD. No pulse deficits. Respiratory: Lungs have equal breath sounds bilaterally, clear to auscultation and percussion. No rales, rhonchi or wheezes noted. No increased work of breathing, no retractions or nasal flaring. Skin: Warm, dry with normal turgor. Normal color with no rashes, no lesions, and no evidence of cellulitis. 23:54 Musculoskeletal/extremity: Extremities: noted in the Right hip: decreased ROM, right foot externally rotated and shortened , 08/07 00:20 ECG was reviewed by the Attending Physician. ms3 Vital Signs: 00:12 BP 101 / 63; Pulse 69; Resp 18 S; Temp 97.4(O); Pulse Ox 100% on R/A; Weight 77.11 kg; br2 Height 6 ft. 1 in. ; Pain 10/10; 00:12 Body Mass Index 22.43 (77.11 kg, 185.42 cm) br2 00:12 Pain Scale: Adult br2 Nicanor Coma Score: 00:12 Eye Response: spontaneous(4). Motor Response: obeys commands(6). Verbal Response: br2 oriented(5). Total: 15. Trauma Score (Adult): 00:12 Eye Response: spontaneous(1); Verbal Response: oriented(1); Motor Response: obeys br2 commands(2); Systolic BP: > 89 mm Hg(4); Respiratory Rate: 10 to 29 per min(4); Novelty Score: 15; Trauma Score: 12 MDM: 08/06 23:54 Medical Screening Exam initiated ms3 23:54 Differential diagnosis: contusion, fracture, sprain, strain. ms3 08/07 06:53 Data reviewed: vital signs, nurses notes, lab test result(s), EKG, radiologic studies, ms3 and as a result, I will admit patient. Consideration of Admission/Observation Patient was admitted/placed on observation. Management of patient was discussed with the following: Hospitalist: Dr Meléndez. Seat Cover Cutter: Dr Cabrera- Will consult on patient. I considered the following discharge prescriptions or medication management in the emergency department Medications were administered in the Emergency Department. See MAR. Independent interpretation of the following test(s) in the Emergency Department X-Ray: My interpretation is Right hip x-ray images reviewed by me revealed intertrochanteric hip fracture. Counseling: I had a detailed discussion with the patient and/or guardian regarding the historical points, exam findings, and any diagnostic results supporting the discharge/admit diagnosis, lab results, radiology results, the need for further work-up and treatment in the hospital. ED course: Discussed right intertrochanteric hip fracture with patient requiring surgical fixation. Patient understands and agrees with admission.. 08/06 23:53 Order name: Basic Metabolic Panel; Complete Time: 01:48 ms3 08/06 23:53 Order name: CBC with Diff; Complete Time: 00:50 ms3 08/07 01:14 Order name: CBC with Automated Diff EDMS 08/07 01:14 Order name: CBC with Automated Diff EDMS 08/07 01:14 Order name: Comprehensive Metabolic Panel EDMS 08/07 01:14 Order name: Comprehensive Metabolic Panel EDMS 08/07 01:14 Order name: Lipid Profile EDMS 08/07 01:14 Order name: Lipid Profile EDMS 08/07 01:14 Order name: Magnesium EDMS 08/07 01:14 Order name: Magnesium EDMS 08/07 01:14 Order name: Magnesium EDMS 08/07 01:24 Order name: Creatine Phosphokinase; Complete Time: 01:48 EDMS 08/07 01:24 Order name: Magnesium; Complete Time: 01:48 EDMS 08/07 01:24 Order name: Thyroid Stimulating Hormone; Complete Time: 01:48 EDMS 08/06 23:52 Order name: Hip Right 2 View XRAY ms3 08/07 09:46 Order name: CT EDMS 08/07 01:14 Order name: Case Management Consult EDMS 08/07 01:14 Order name: CONS Physician Consult EDMS 08/07 01:14 Order name: CONS Physician Consult EDMS 08/07 01:14 Order name: Occupational Therapy Consult EDMS 08/07 01:14 Order name: Physical Therapy Consult EDMS 08/06 23:53 Order name: Cardiac monitoring; Complete Time: 02:13 ms3 08/06 23:53 Order name: EKG - Nurse/Tech; Complete Time: 01:00 ms3 08/06 23:53 Order name: IV Saline Lock; Complete Time: 02:13 ms3 08/06 23:53 Order name: Labs collected and sent; Complete Time: 02:13 ms3 EC:20 Rate is 67 beats/min. Rhythm is regular. Left axis deviation noted. NM interval is ms3 normal. QRS interval is normal. T waves are Inverted in leads V4, V5, V6. Clinical impression: NSR w/ Non-specific ST/T Changes. Interpreted by me. Reviewed by me. Administered Medications: 00:48 Drug: morphine IVP or IV 4 mg IVP once over 4 mins Route: IVP; Infused Over: 4 mins; br2 Site: right antecubital; 01:30 Follow up: Response: Pain is decreased br2 01:10 Drug: Calcium Gluconate IVPB 2 grams IVPB once over 60 mins; (mix in NS 100 mL) Route: br2 IVPB; Infused Over: 60 mins; Site: right antecubital; 02:15 Follow up: IV Status: Completed infusion; IV Intake: 100ml br2 Disposition Summary: 08/07/24 00:36 Hospitalization Ordered Notes: Hospitalization Status: Inpatient Admission ms3 Provider: Melita Meléndez ms3 Condition: Stable ms3 Problem: new ms3 Symptoms: are unchanged ms3 Bed/Room Type: Standard ms3 Location: Telemetry/MedSurg (Inpatient)(08/07/24 13:36) eb Room Assignment: [facility](08/07/24 13:36) eb Diagnosis - Nondisplaced intertrochanteric fracture of right femur ms3 - Fall on same level, unspecified ms3 - Alcohol abuse ms3 Forms: - Medication Reconciliation Form ms3 - SBAR form ms3 - Leadership Thank You Letter ms3 Signatures: Dispatcher [employer] EDMS Shandra Delong, RN RN Verónica Jaramillo Marcus, DO DO ms3 Tere Hernandez RN RN br2 Corrections: (The following items were deleted from the chart) 01:23 01:14 Thyroid Stimulating Hormone ordered. EDMS EDMS 01:23 01:14 Magnesium ordered. EDMS EDMS 01:24 01:14 Creatine Phosphokinase ordered. EDMS EDMS 01:35 00:36 Telemetry/MedSurg (Inpatient) ms3 cg 01:35 00:36 ms3 cg 08:28 08:28 Pelvis Wo Cont+CT.RAD.BRZ ordered. EDMS EDMS 13:36 01:35 [facility] ER HOLD cg eb 13:36 01:35 ERHOLD- cg eb
[2024-08-07 00:42] LABS: Absolute Eosinophils 0.1 K/uL (0-0.5); Absolute Lymphocytes (CBC) 1.7 K/uL (0.7-4.9); Absolute Monocytes 0.3 K/uL (0.1-1.3); Absolute Neutrophil 1.9 K/uL (1.8-8.0); Basophils % 0.7 % (0-1.3); Eosinophils % 2.8 % (0-4.4); Hematocrit 31.7 % (39.6-49.0); Hemoglobin 10.4 g/dL (13.6-17.9); Lymphocytes % 41.5 % (15.3-44.8); MCH 32.2 pg (27.0-35.0); MCHC 32.8 g/dL (32.0-36.0); MCV 98.1 fL (80-100); MPV 7.2 fL (7.6-11.3); Monocytes % 8.2 % (3.3-12.3); Neutrophils % 46.8 % (41.7-73.7); Platelets 346 thou/uL (152-406); RBC Red Blood Cell Count 3.24 M/uL (4.33-5.43); Red Cell Distribution Width 19.8 % (12.1-15.2)
[2024-08-07 00:48] LABS: Anion Gap 10.4 mEq/L (5.0-15.0); Potassium 3.4 mEq/L (3.5-5.1)
[2024-08-07] MEDS ORDERED: CALCIUM GLUCONATE 1 GM IVPB 2 GM/100 ML BAG IV ONE (01:01)
--- NOTE | 2024-08-07 01:02 | P.HP ---
Certification for Inpatient With expected LOS: >2 Midnights Patient will require the following post-hospital care: None Practitioner: I am a practitioner with admitting privileges, knowledge of patient current condition, hospital course, and medical plan of care. Services: Services provided to patient in accordance with Admission requirements found in Title 42 Section 412.3 of the Code of Federal Regulations Patient History Date of Service: 08/07/24 Reason for admission: Right hip pain History of Present Illness: 59-year-old male with past medical history of HTN/HLD, CAD with abnormal stress test, slightly reduced EF CHF with previous echo showing EF of 50% with mild hypokinesis, but not on any meds currently, chronic tobacco use who presents to the hospital because of right hip pain. Patient states his right leg has collapsed while getting up from the recliner today. He has falling down and developed intense right hip pain. He rates pain at about 10 out of 10. He has called EMS and was brought to the emergency room. X-ray shows evidence of right intertrochanteric fracture. Patient admitted to regular alcohol intake. He has consumed alcohol this evening prior to lying in the couch. He denies any headache or dizziness he denies any loss of consciousness. He denies any chest pain. He states he has not taken any medications since he left the hospital 4 months ago after admission for CAD. He had a failed stress test then He admits to alcohol intake but unable to discuss how much he drinks daily. Patient is a poor historian. He has been admitted for right hip fracture. Ortho Dr. Cabrera has been consulted Allergies No Known Drug Allergies Allergy (Verified 11/02/20 13:43) Unknown Home Medications: Albuterol Inhaler [Ventolin Inhaler*] 2 puff IH Q6H PRN #2 inh 09/22/23 predniSONE [Deltasone*] 10 mg PO BID 5 Days #10 tab 09/22/23 Sucralfate [Carafate*] 1 gm PO ACHS 5 Days #20 tab 12/18/23 Aspirin [Aspirin EC 81 MG] 81 mg PO 30 MIN BEFORE HS 30 Days #30 tab 04/03/24 Atorvastatin Calcium [Lipitor] 40 mg PO BEDTIME 30 Days #30 tab 04/03/24 Pantoprazole Sodium [Protonix] 40 mg PO DAILY 30 Days #30 tab 04/03/24 carvediloL [Coreg] 3.125 mg PO BID 30 Days #60 tab 04/03/24 lisinopriL [Prinivil*] 2.5 mg PO 30 MIN BEFORE HS 30 Days #30 tab 04/03/24 - Past Medical/Surgical History Diabetic: No -: HTN -: HLD -: None - Social History Smoking Status: Heavy Tobacco smoker (>10 cigarettes/day) Smoking therapy provided: Yes Patient receptive to therapy: Yes Alcohol use: Yes CD- Drugs: No Caffeine use: No Place of Residence: Home Review of Systems Musculoskeletal: Leg Pain Physical Examination - Physical Exam General: Alert, In no apparent distress, Oriented x3 HEENT: Atraumatic, Normocephalic, PERRLA Neck: Supple, 2+ carotid pulse no bruit, JVD not distended Respiratory: Clear to auscultation bilaterally, Normal air movement Cardiovascular: No edema, Normal pulses, Regular rate/rhythm, Normal S1 S2 Gastrointestinal: Normal bowel sounds, Soft and benign, Non-distended, No ascites, No tenderness Musculoskeletal: No clubbing, Swelling, Tenderness (Right hip) Neurological: Normal speech, Normal strength at 5/5 x4 extr, Normal tone - Studies Laboratory Data (last 24 hrs) 08/07/24 08/07/24 00:08 00:08 WBC 4.10 L Hgb 10.4 L Hct 31.7 L Plt Count 346 Sodium 145 Potassium 3.4 L BUN 6 L Creatinine 0.74 Glucose 96 Assessment and Plan - Problems (Diagnosis) (1) HTN (hypertension) Current Visit: Yes Status: Acute (2) Closed right hip fracture Current Visit: Yes Status: Acute (3) Coronary artery disease Current Visit: No Status: Acute (4) Heart failure with reduced ejection fraction Current Visit: No Status: Acute - Plan Right hip fracture Hypertension HLD Chronic tobacco use Alcohol abuse Medication nonadherence Plan Will admit patient to inpatient Pain control Gentle IV fluid Restart aspirin given history of CAD Will consult cardiology Dr. Shay in a.m. for cardiac clearance preop EKG reviewed, T wave inversion appear chronic Ativan as needed for alcohol withdrawal, may need start of CIWA protocol Follow orthopedics for ORIF PT and OT Case management eval Full code Lovenox for DVT prophylaxis Resume lisinopril from previous home med list Discharge Plan: Home - Advance Directives Does patient have a Living Will: No Does patient have a Durable POA for Healthcare: No - Code Status/Comfort Care Code Status: Full Code Physician Review: Patient Assessed, Agree with Above Assessment and Plan Time Spent Managing Pts Care (In Minutes): 75
[2024-08-07] MEDS ORDERED: ALBUTEROL 2.5 MG/3 ML NEB SOL NEB PRN (01:07)
[2024-08-07] MEDS ORDERED: ACETAMINOPHEN 500 MG TAB PO PRN (01:07)
[2024-08-07] MEDS ORDERED: ONDANSETRON 4 MG/2 ML VIAL IV PRN (01:07)
--- NOTE | 2024-08-07 01:32 | RAD REPORT ---
Clinical Indication: Bed Name: 6; PAIN Comparison: None FINDINGS: The 2 views of the right hip show an intertrochanteric fracture. There is slight sclerosing of the ac etabular articular surface. Slight femoral head remodeling is noted. Mild soft tissue swelling is noted about the fracture. No gas densities are noted in the soft tissues. There are no radio-opaque f oreign bodies. The visualized sacroiliac joint and symphysis pubis are unremarkable. If there is further concern, recommend follow-up radiographs or MRI for complete assessment. IMPRESSION: 1. Right femoral intertrochanteric fracture. 2. Degenerative changes in the right hip joint. Electronically signed by: John Sr MD 08/07/2024 01:01 AM [facility] Due to temporary technical issues with the PACS/[employer] reporting system, reports are being mary d by the in-house radiologist without review as a courtesy to ensure prompt reporting the interpreting radiologist is fully responsible for the content of the report. Transcribed Date/Time: 08/07/2024 1:31 AM
[2024-08-07 01:46] LABS: Thyroid Stimulating Hormone 1.64 uIU/mL (0.358-3.740)
[2024-08-07] MEDS: D5.45NS W/KCL 20MEQ 1,000 ML IV SCH (02:00)
[2024-08-07] MEDS ORDERED: MORPHINE 2 MG/ML SYR ONE ×3 (02:50→11:03)
[2024-08-07] MEDS ORDERED: D5.45NS W/KCL 20MEQ 1,000 ML IV ONE (02:50)
[2024-08-07] MEDS: MORPHINE 2 MG/ML SYR IV PRN ×2 (03:25→13:45)
[2024-08-07] MEDS ORDERED: LORazepam 2 MG/ML VIAL ONE (05:04)
[2024-08-07] MEDS: LORazepam 2 MG/ML VIAL IV PRN (05:21)
[2024-08-07 05:37] VITALS: BMI 22.4
[2024-08-07] MEDS: PANTOPRAZOLE 40MG TABLET PO SCH (07:30)
[2024-08-07] MEDS: SUCRALFATE 1 GM TABLET PO SCH (07:30)
[2024-08-07] MEDS: carvediloL 6.25 MG TAB PO SCH (08:00)
[2024-08-07] MEDS ORDERED: PANTOPRAZOLE 40MG TABLET PO ONE (08:54)
[2024-08-07] MEDS ORDERED: SUCRALFATE 1 GM TABLET ONE (08:55)
--- NOTE | 2024-08-07 09:46 | RAD REPORT ---
EXAMINATION: CT PELVIS WITHOUT CONTRAST CLINICAL INDICATION: Pelvic pain TECHNIQUE: CT pelvis was performed, without IV contrast, as per department protocol. Axial, sagittal and coronal reconstructions were obtained. One or more of the following dose reduction techniques were used: Automated exposure control, adjustment of the mA and/or kV according to patient size, and/ or iterative reconstruction. Unless otherwise specified, incidental findings do not require dedicated imaging follow-up. COMPARISON: August 07, 2024 x-ray FINDINGS: Intertrochanteric fracture right femur. The fracture involves the greater and lesser trochanters. Mil d displacement of the fracture fragments.. The greater trochanter is avulsed No dislocation. No significant joint effusion. Old bilateral subcapital femoral fractures with angulation deformities. IMPRESSION: Mildly displaced intertrochanteric fracture right femur involves greater and lesser trochanters.
[2024-08-07] MEDS: MORPHINE 4 MG/ML SYR IV ONE (09:52)
[2024-08-07] MEDS ORDERED: carvediloL 6.25 MG TAB ONE (11:03)
--- NOTE | 2024-08-07 13:40 | P.PN ---
Subjective Date of Service: 08/07/24 Chief Complaint: Right hip pain Patient is complaining of right hip pain. No recorded fever. Physical Examination - Vital Signs Blood Pressure: 142/79 Pulse: 80 Respirations: 15 Pulse Ox (%): 98 - Studies Laboratory Data (last 24 hrs) 08/07/24 08/07/24 08/07/24 01:06 00:08 00:08 WBC 4.10 L Hgb 10.4 L Hct 31.7 L Plt Count 346 Sodium 145 Potassium 3.4 L BUN 6 L Creatinine 0.74 Glucose 96 Magnesium Cancelled 2.0 Assessment And Plan - Plan Physical examination General: Alert and oriented x3, NAD, HEENT: Conjunctiva not pale, anicteric sclera Neck: Supple, no elevated JVD Heart: Heart sounds 1 and 2 normal, regular rhythm, normal rate, no pedal edema Lungs: Clear to auscultation bilaterally, adequate breath sounds bilaterally, no rhonchi or crackles. Abdomen: Soft, nondistended, nontender, normal bowel sounds. Extremities: No tenderness, laterally rotated right leg. Skin: Normal skin turgor, no rash, no nodules or ulcers. Neuro: No focal motor deficit. Normal speech. Psychiatry: Normal mood, no agitation. Diagnosis Right hip fracture Old bilateral subcapital femoral fractures. Coronary artery disease. History of abnormal stress test. Plan Right hip fracture Old bilateral subcapital femoral fractures Case discussed with Ortho Dr. Cabrera who is reviewing images. Supportive measures with analgesics as needed. Monitor and optimize electrolytes. History abnormal stress test Coronary artery disease History of medical noncompliance Cardiology consulted for cardiac clearance. Obtain echocardiogram. Patient is on aspirin, Lipitor, Coreg. DVT prophylaxis: SCD
[2024-08-07] MEDS: HYDROCODONE/APAP 7.5/325 MG TAB PO PRN (19:30)
[2024-08-07] MEDS: lisinopriL 5 MG TAB PO SCH (20:46)
[2024-08-07] MEDS: ASPIRIN EC 81 MG TAB PO SCH (20:46)
[2024-08-07] MEDS: MELATONIN 3 MG TABLET PO ONE (20:46)
[2024-08-07] MEDS: ATORVASTATIN 40 MG TAB PO SCH (20:53)
--- NOTE | 2024-08-08 00:23 | CON ---
Date of Consultation: 08/07/2024 Reason For Consultation: Right hip pain. History Of Present Illness: Mr. Nicholas is a 59-year-old male with history of hypertension, simpson ry artery disease, and CHF, who presented to the ER after sustaining a fall onto his right side with subsequent pain and inability to bear weight. The patient was brought to the emergency room and had x-rays that demonstrated a displaced right intertrochanteric femur fracture. The patient also had a CAT scan, which demonstrated malunion of prior bilateral subcapital proximal femur fractures. The salomón rodriguez does not recall any injury to his hips in the past. 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 He reports pain with range of motion of the right hip. He denies any other musculoskeletal comp laints at this time. The patient was noted to have diminished ejection fraction in the past from a p rior echocardiogram. Review of Systems: As above, otherwise negative. Past Medical History: Includes CHF, coronary artery disease, hypertension. Past Surgical History: None. Social History: Reports tobacco and alcohol use. Denies drug use. Lives at home. Allergies: NO KNOWN DRUG ALLERGIES. Medications: Home medications include prednisone, Carafate, aspirin, Protonix, Coreg, lisinopril, Li pitor. Physical Examination: General: No apparent distress. HEENT: Normocephalic, atraumatic. Neck: Supple. Cardiovascular: Brisk cap refill to all digits. Chest: Nonlabored breathing. Abdomen: Nondistended. Psychiatric: Responsive to exam. Musculoskeletal: Bilateral upper extremities, functional range of motion without pain. No gross def ormities. No obvious dislocations. Left lower extremity functional range of motion without pain. N o gross deformities. No obvious dislocations. Right lower extremity pain with range of motion of th e right hip. Tenderness to palpation over the right hip. No tenderness over the knee, tibia, foot, or ankle. Reports gross sensation intact over the dorsal and plantar foot. Positive firing of EHL, FHL, gastrocsoleus complex, tibialis anterior. Diagnostic Studies: X-rays and CAT scan reviewed of the right hip. This demonstrates an acute right intertrochanteric femur fracture with varus malunion of the prior subcapital femoral neck fracture b ilaterally, which has gone on to heal. Assessment And Plan: Zheng is a 59-year-old male with right intertrochanteric femur fracture and ri ght subcapital femoral neck fracture with malunion. I discussed with the patient at length his diagn osis as well as treatment plan. I discussed with the patient his complex history as well as his prio r injury to the right hip, which increases the risks for complication, including malunion; posttrauma tic arthritis; and nonunion. The patient expressed understanding. We will proceed with cephalomedul robin fixation of the right intertrochanteric femur fracture tomorrow. We will await cardiac clearanc e. The patient will be n.p.o. after midnight. CV/MODL Voice ID: [id number] Report ID: [id number]
[2024-08-08 05:21] LABS: Absolute Eosinophils 0.1 K/uL (0-0.5); Absolute Lymphocytes (CBC) 1.2 K/uL (0.7-4.9); Absolute Monocytes 0.7 K/uL (0.1-1.3); Absolute Neutrophil 2.9 K/uL (1.8-8.0); Eosinophils % 2.3 % (0-4.4); Hematocrit 32.2 % (39.6-49.0); Hemoglobin 10.6 g/dL (13.6-17.9); Lymphocytes % 24.9 % (15.3-44.8); MCH 32.1 pg (27.0-35.0); MCHC 32.9 g/dL (32.0-36.0); MCV 97.4 fL (80-100); MPV 7.2 fL (7.6-11.3); Monocytes % 13.5 % (3.3-12.3); Neutrophils % 58.3 % (41.7-73.7); Nucleated Red Blood Cells % 0.3 % (0-0); Platelets 290 thou/uL (152-406); Red Cell Distribution Width 18.6 % (12.1-15.2)
[2024-08-08 05:38] LABS: PT Prothrombin Time 11.2 SECONDS (10.0-13.0); PTT, Activated Partial Thromb 30.5 SECONDS (24.3-36.9); Protime INR 0.98
[2024-08-08 05:50] LABS: Albumin 2.9 g/dL (3.4-5.0); Albumin/Globulin Ratio 0.8 (1.1-1.8); Bilirubin Total 1.4 mg/dL (0.2-1.0); Globulin 3.7 g/dL (2.3-3.5); Magnesium 1.5 mg/dL (1.6-2.4); Protein, Total 6.6 g/dL (6.4-8.2)
--- NOTE | 2024-08-08 10:07 | P.CNS ---
Date of Consult: 08/08/24 Chief Complaint: Right hip pain History of Present Illness: Patient with PMH of CAD, Heart failure mild reduced EF, presented with ground level mechanical fall and right hip fracture, cardiology consulted for preoperative clearance, patient denies chest pain, no palpitations, no syncope, no SOB. Allergies No Known Drug Allergies Allergy (Verified 11/02/20 13:43) Unknown Home medications list reviewed: Yes Home Medications: Albuterol Inhaler [Ventolin Inhaler*] 2 puff IH Q6H PRN #2 inh 09/22/23 predniSONE [Deltasone*] 10 mg PO BID 5 Days #10 tab 09/22/23 Sucralfate [Carafate*] 1 gm PO ACHS 5 Days #20 tab 12/18/23 Aspirin [Aspirin EC 81 MG] 81 mg PO 30 MIN BEFORE HS 30 Days #30 tab 04/03/24 Atorvastatin Calcium [Lipitor] 40 mg PO BEDTIME 30 Days #30 tab 04/03/24 Pantoprazole Sodium [Protonix] 40 mg PO DAILY 30 Days #30 tab 04/03/24 carvediloL [Coreg] 3.125 mg PO BID 30 Days #60 tab 04/03/24 lisinopriL [Prinivil*] 2.5 mg PO 30 MIN BEFORE HS 30 Days #30 tab 04/03/24 - Past Medical/Surgical History Diabetic: No -: HTN -: HLD -: None - Social History Smoking Status: Current every day smoker Alcohol use: Yes CD- Drugs: No Caffeine use: No Place of Residence: Home Review of Systems 10-point ROS is otherwise unremarkable Physical Examination Temp Pulse Resp BP Pulse Ox 98.1 F 78 16 125/71 97 08/08/24 08:00 08/08/24 08:29 08/08/24 08:25 08/08/24 08:29 08/08/24 08:25 General: Alert, In no apparent distress HEENT: Atraumatic, PERRLA, Mucous membr. moist/pink, EOMI, Sclerae nonicteric Neck: Supple, 2+ carotid pulse no bruit, No LAD, Without JVD or thyroid abnormality Respiratory: Clear to auscultation bilaterally, Normal air movement Cardiovascular: Regular rate/rhythm, Normal S1 S2 Gastrointestinal: Normal bowel sounds, No tenderness Musculoskeletal: No tenderness Integumentary: No rashes Neurological: Normal gait, Normal speech, Normal tone, Normal affect Lymphatics: No axilla or inguinal lymphadenopathy - Problems (1) Preoperative clearance Current Visit: Yes Status: Acute Plan: Patient looks euvolemic on exam, had a recent coronary angiogram and echo done, Patient is cleared as intermediate cardiac risk no further cardiac testing needed prior to surgery. would recommend to continue ASA 81 mg daily through surgery. (2) Coronary artery disease Current Visit: No Status: Acute Plan: Mild to moderate in nature on recent coronary angiogram continue ASA 81 mg daily continue Lipitor (3) Heart failure with reduced ejection fraction Current Visit: No Status: Acute Plan: looks euvolemic on exam continue coreg hold lisinopril and re start after surgery.
[2024-08-08] MEDS ORDERED: MIDAZOLAM HCL 2 MG/2 ML INJ ONE (10:41)
[2024-08-08] MEDS ORDERED: FENTANYL CITR 100 MCG/2 ML ONE ×2 (10:41→12:10)
[2024-08-08] MEDS ORDERED: LIDOCAINE 1% MPF 5 ML VIAL ONE (10:41)
[2024-08-08] MEDS ORDERED: propofoL 200 MG/20 ML VIAL IV ONE (10:41)
[2024-08-08] MEDS: Ringers Lactate 1,000 ML IV ONE (10:45)
[2024-08-08] MEDS ORDERED: HYDROMORPHONE HCL 1 MG/ML INJ ONE (11:15)
[2024-08-08] MEDS: CEFAZOLIN SODIUM 2 GM/VIAL ONE (11:40)
--- NOTE | 2024-08-08 12:00 | EKG ---
Test Date: 2024-08-07 Test Time: 00:05:46 Data Entry Coordinator: MARSHA MEASUREMENT RESULTS: Intervals: Rate: 67 MO: 184 QRSD: 84 QT: 430 QTc: 454 [place]: P: 72 MO: 184 QRS: -35 T: -75 INTERPRETIVE STATEMENTS: Normal sinus rhythm Left axis deviation Septal infarct, age undetermined ST & T wave abnormality, consider inferolateral ischemia Abnormal ECG Compared to ECG 06/08/2024 22:47:50 Left-axis deviation now present Myocardial infarct finding now present ST (T wave) deviation now present Atrial premature complex(es) no longer present Left anterior fascicular block no longer present T-wave abnormality no longer present Possible ischemia still present Electronically Signed On 08-08-24 11:58:29 OUTSIDE MAINTENANCE WORKER by Jacob Arcos
--- NOTE | 2024-08-08 13:02 | P.BOP ---
Preoperative diagnosis: Right intertrochanteric femur fracture Postoperative diagnosis: Same Primary procedure: Cephalomedullary fixation of right intertrochanteric femur fracture Rayon Winder: NONE,NONE Estimated blood loss: 50 cc Specimen: None Findings: See dictation Anesthesia: General Complications: None Implants: Biomet affixus nail 11 x 180 mm at 125 degrees, 90 mm lag screw Fluids & blood products: per anesthesia record Transferred to: Recovery Room Condition: Good
[2024-08-08] MEDS: HYDROMORPHONE HCL 1 MG/ML INJ ONE ×2 (13:20→13:47)
--- NOTE | 2024-08-08 13:28 | RAD REPORT ---
EXAM: Fluoroscopy use, Fluoroscopy <1 Hour HISTORY: [facility] RT HIP PIN COMPARISON: None FINDINGS: A total of 40 images were sent to PACS, during a fluoroscopically guided right hip ORIF. No radiologist was involved in protocoling or performance of the study, and no radiologist was present for the duration of the procedure. No interpretation of the saved images will be provided. Total fluoroscopy time: 0.8 minutes. IMPRESSION: Documentation of fluoroscopy use as above.
[2024-08-08 14:09] LABS: Hematocrit 44.2 % (39.6-49.0); Hemoglobin 14.5 g/dL (13.6-17.9)
--- NOTE | 2024-08-08 15:14 | P.PN ---
Subjective Date of Service: 08/08/24 Chief Complaint: Right hip pain Patient status post right hip intramedullary nailing today. No recorded fever. Physical Examination - Vital Signs Temperature: 98.9 F Blood Pressure: 148/73 Pulse: 73 Respirations: 16 Pulse Ox (%): 97 Assessment And Plan - Plan Physical examination General: Alert and oriented x3, NAD, HEENT: Conjunctiva not pale, anicteric sclera Neck: Supple, no elevated JVD Heart: Heart sounds 1 and 2 normal, regular rhythm, normal rate, no pedal edema Lungs: Clear to auscultation bilaterally, adequate breath sounds bilaterally, no rhonchi or crackles. Abdomen: Soft, nondistended, nontender, normal bowel sounds. Skin: Normal skin turgor, no rash, no nodules or ulcers. Neuro: No focal motor deficit. Normal speech. Psychiatry: Normal mood, no agitation. Diagnosis Right hip fracture Old bilateral subcapital femoral fractures. Coronary artery disease. History of abnormal stress test. Hyponatremia Plan Right hip fracture Old bilateral subcapital femoral fractures Case discussed with Ortho Dr. Cabrera who is reviewing images. Supportive measures with analgesics as needed. Monitor and optimize electrolytes. History abnormal stress test Coronary artery disease History of medical noncompliance Cardiology consulted for cardiac clearance. Obtain echocardiogram. Patient is on aspirin, Lipitor, Coreg. 08/08 Patient seen and evaluated by cardiology Dr. Arcos. Patient clinical condition considered optimal for surgery. Of note patient had a cardiac cath in March 2024 and noted to have mild coronary artery disease Status post right hip intramedullary nailing by Dr. Cabrera today. Analgesics as needed. DVT prophylaxis with Eliquis to start tomorrow. Continue aspirin, Lipitor and Coreg and lisinopril. Monitor BMP and CBC. DVT prophylaxis: Eliquis to start tomorrow.
--- NOTE | 2024-08-08 17:35 | RAD REPORT ---
EXAMINATION: Hip Right 2 View CLINICAL INDICATION: Male, 59 years old. postop RIGHT COMPARISON: 08/07/2024 FINDINGS: Status post right hip ORIF for intertrochanteric fracture with improved alignment. Hardware is intact . Chronic right femoral head deformity. IMPRESSION: Status post right hip ORIF without evidence of hardware complications.
[2024-08-08] MEDS: CEFAZOLIN SODIUM 2 GM in NA CHLORIDE 0.9% 100 ML IVPB SCH (18:55)
[2024-08-09 04:53] LABS: Absolute Eosinophils 0.1 K/uL (0-0.5); Absolute Lymphocytes (CBC) 1.2 K/uL (0.7-4.9); Absolute Monocytes 0.7 K/uL (0.1-1.3); Absolute Neutrophil 5.9 K/uL (1.8-8.0); Basophils % 0.6 % (0-1.3); Eosinophils % 1.2 % (0-4.4); Hematocrit 27.2 % (39.6-49.0); Hemoglobin 9.1 g/dL (13.6-17.9); Lymphocytes % 14.8 % (15.3-44.8); MCH 32.5 pg (27.0-35.0); MCHC 33.5 g/dL (32.0-36.0); MCV 97.2 fL (80-100); MPV 7.4 fL (7.6-11.3); Monocytes % 9.1 % (3.3-12.3); Neutrophils % 74.3 % (41.7-73.7); Nucleated Red Blood Cells % 0.3 % (0-0); Platelets 237 thou/uL (152-406); Red Cell Distribution Width 17.9 % (12.1-15.2)
[2024-08-09 05:39] LABS: Anion Gap 10.8 mEq/L (5.0-15.0); Magnesium 1.3 mg/dL (1.6-2.4); Potassium 3.8 mEq/L (3.5-5.1)
[2024-08-09] MEDS: TRAMADOL HCL 50 MG TAB PO PRN (08:42)
[2024-08-09] MEDS: ENOXAPARIN 40 MG/0.4 ML SQ SCH (08:44)
--- NOTE | 2024-08-09 09:33 | P.PN ---
Date of Service: 08/09/24 Subjective: continue with leg pain, weakness Denies constipation. passing gas appetite okay afebrile ROS: 10 point ROS as noted above, otherwise negative Physical Exam: GEN: Alert, oriented, NAD CV: Regular rate and rhythm, no edema Pulm: Nonlabored respirations on room air, clear bilaterally MSK: tender in R hip. 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 Coronary artery disease History of abnormal stress test. Hyponatremia Right hip fracture, s/p IM nailing (08/08) Old bilateral subcapital femoral fractures Dr. Cabrera, ortho is following s/p IM nailing (08/08) pain control PT/OT. Possible placement pending PT eval weightbearing status per ortho Daily labs. Coronary artery disease History abnormal stress test Cardiology consulted for cardiac clearance. Had cardiac cath in March 2024 and noted to have mild coronary artery disease No further testing needed. Cleared for surgery. continue aspirin, Lipitor, Coreg. Restart eliquis next 12-24 hours Hyponatremia Monitor and replete electrolytes as needed. VTE: Lovenox Code: Full Dispo: ?SNF vs home Time Spent Managing Pts Care (In Minutes): 55
[2024-08-09] MEDS: carvediloL 3.125 MG TAB PO SCH (17:00)
[2024-08-10 04:50] LABS: Absolute Basophils 0.1 K/uL (0-0.5); Absolute Eosinophils 0.1 K/uL (0-0.5); Absolute Lymphocytes (CBC) 0.8 K/uL (0.7-4.9); Absolute Monocytes 0.8 K/uL (0.1-1.3); Absolute Neutrophil 4.7 K/uL (1.8-8.0); Basophils % 0.8 % (0-1.3); Eosinophils % 1.7 % (0-4.4); Hematocrit 25.1 % (39.6-49.0); Hemoglobin 8.4 g/dL (13.6-17.9); Lymphocytes % 12.4 % (15.3-44.8); MCH 32.6 pg (27.0-35.0); MCHC 33.6 g/dL (32.0-36.0); MCV 97.2 fL (80-100); MPV 7.5 fL (7.6-11.3); Monocytes % 12.3 % (3.3-12.3); Neutrophils % 72.8 % (41.7-73.7); Nucleated Red Blood Cells % 0.1 % (0-0); Platelets 198 thou/uL (152-406); RBC Red Blood Cell Count 2.58 M/uL (4.33-5.43); Red Cell Distribution Width 17.9 % (12.1-15.2)
[2024-08-10 05:31] LABS: Anion Gap 7.3 mEq/L (5.0-15.0); Magnesium 1.2 mg/dL (1.6-2.4); Potassium 3.3 mEq/L (3.5-5.1)
--- NOTE | 2024-08-10 08:18 | ECHO ---
HEIGHT: 6 ft 1 in WEIGHT: 170 lb 0 oz DATE OF STUDY: 08/09/[address]: Farzad Durham MD 2-DIMENSIONAL: YES M.MODE: YES DOPPLER: YES COLOR FLOW: YES TDS: NO PORTABLE: YES DEFINITY: NO BUBBLE STUDY: NO DIAGNOSIS: ABNORMAL STRESS TEST CARDIAC HISTORY: CATHERIZATION: SURGERY: PROSTHETIC VALVE: PACEMAKER: MEASUREMENTS (cm) DIASTOLIC (NORMALS) SYSTOLIC (NORMALS) IVSd 0.9 (0.6-1.2) LA Diam (1.9-4.0) LVEF 50% LVIDd 4.7 (3.5-5.7) LVIDs 4.1 (2.0-3.5) %FS 12% LVPWd 1.0 (0.6-1.2) Ao Diam 3.9 (2.0-3.7) 2 DIMENSIONAL ASSESSMENT: RIGHT ATRIUM: NORMAL LEFT ATRIUM: NORMAL RIGHT VENTRICLE: NORMAL LEFT VENTRICLE: NORMAL TRICUSPID VALVE: MILD TRICUSPID REGURGITATION MITRAL VALVE: NORMAL PULMONIC VALVE: NORMAL AORTIC VALVE: MOST LIKELY BICUSPID PERICARDIAL EFFUSION: NONE AORTIC ROOT: NORMAL LEFT VENTRICULAR WALL MOTION: MILD GLOBAL HYPOKINESIS. DOPPLER/COLOR FLOW: NORMAL. COMMENTS: 1. LOW NORMAL LEFT VENTRICULAR SYSTOLIC FUNCTION, EJECTION FRACTION, MILD GLOBAL HYPOKINESIS. 2. MODERATE AORTIC REGURGITATION. 3. NORMAL FILLING PRESSURE. 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
[2024-08-10] MEDS: DOCUSATE NA 100 MG CAP PO PRN (09:30)
--- NOTE | 2024-08-10 10:11 | P.PN ---
Date of Service: 08/10/24 Subjective: leg pain continues, slightly more tolerable doesn't feel worse feels tramadol isnt't really helping otherwise no new issues afebrile ROS: 10 point ROS as noted above, otherwise negative Physical Exam: GEN: Alert, oriented, NAD CV: Regular rate and rhythm, no edema Pulm: Nonlabored respirations on room air, clear bilaterally MSK: tender in R hip. dressing c/d/i with area of old dried blood, no appreciable /palpable hematoma Neuro: Normal speech, normal affect Problem List: Right hip fracture, s/p IM nailing (08/08) Old bilateral subcapital femoral fractures. Coronary artery disease History of abnormal stress test. Hyponatremia Right hip fracture, s/p IM nailing (08/08) Old bilateral subcapital femoral fractures Dr. Cabrera, ortho is following s/p IM nailing (08/08) Switch tramadol to norco 5/325 (08/10); Pt doesn't feel tramadol is helping continue PT/OT. Possible placement pending PT eval TDWB status per ortho Daily labs. hgb slightly downtrended No evidence of active bleeding, will monitor for any hematoma development Recheck H/H this afternoon Coronary artery disease History abnormal stress test Cardiology consulted for cardiac clearance. Had cardiac cath in March 2024 and noted to have mild coronary artery disease No further testing needed. Cleared for surgery. continue aspirin, Lipitor, Coreg. Hyponatremia Monitor and replete electrolytes as needed. VTE: Lovenox Code: Full Dispo: May benefit from rehab Time Spent Managing Pts Care (In Minutes): 55
[2024-08-10 16:56] LABS: Hematocrit 23.5 % (39.6-49.0); Hemoglobin 8.1 g/dL (13.6-17.9)
[2024-08-10] MEDS: HYDROCODONE/APAP 5/325 MG TAB PO PRN (17:45)
[2024-08-11 04:48] LABS: Hemoglobin 7.7 g/dL (13.6-17.9); MCH 32.4 pg (27.0-35.0); MCHC 33.6 g/dL (32.0-36.0); MCV 96.4 fL (80-100); MPV 7.5 fL (7.6-11.3); Platelets 199 thou/uL (152-406); RBC Red Blood Cell Count 2.38 M/uL (4.33-5.43); Red Cell Distribution Width 17.7 % (12.1-15.2)
[2024-08-11 05:11] LABS: Anion Gap 6.3 mEq/L (5.0-15.0); Bicarbonate 28 mEq/L (21-32); Glomerular Filtration Rate 110 ml/min (=/>90); Glucose Level 94 mg/dL (74-106); Magnesium 1.4 mg/dL (1.6-2.4); Potassium 3.3 mEq/L (3.5-5.1); Sodium Level 135 mEq/L (136-145)
[2024-08-11 05:13] LABS: BUN Blood Urea Nitrogen < 3 mg/dL (7-18)
--- NOTE | 2024-08-11 15:08 | P.PN ---
Date of Service: 08/11/24 Subjective: worked with PT today pain improving denies any bleeding ROS: 10 point ROS as noted above, otherwise negative Physical Exam: GEN: Alert, oriented, NAD CV: Regular rate and rhythm, no edema Pulm: Non-labored respirations on room air, clear bilaterally MSK: tender in R hip. dressing c/d/i with area of old dried blood, no appreciable /palpable hematoma Neuro: Normal speech, normal affect Problem List: Right hip fracture, s/p IM nailing (08/08) Old bilateral subcapital femoral fractures. Coronary artery disease History of abnormal stress test. Hyponatremia Right hip fracture, s/p IM nailing (08/08) Old bilateral subcapital femoral fractures Dr. Cabrera, ortho is following s/p IM nailing (08/08) Switch tramadol to norco 5/325 (08/10); pain improving continue PT/OT TDWB status per ortho Daily labs. hgb slightly downtrended No evidence of active bleeding, will monitor for any hematoma development monitor h/h check iron studies Coronary artery disease History abnormal stress test Cardiology consulted for cardiac clearance. Had cardiac cath in March 2024 and noted to have mild coronary artery disease No further testing needed. Cleared for surgery. continue aspirin, Lipitor, Coreg. Hyponatremia Monitor and replete electrolytes as needed. VTE: Lovenox Code: Full Dispo: rehab consult Time Spent Managing Pts Care (In Minutes): 55
[2024-08-11 18:19] VITALS: O2SAT 100
[2024-08-11] MEDS: MELATONIN 3 MG TABLET PO PRN (22:07)
[2024-08-12 04:58] LABS: Hematocrit 21.6 % (39.6-49.0); Hemoglobin 7.4 g/dL (13.6-17.9); MCH 32.3 pg (27.0-35.0); Platelets 167 thou/uL (152-406); RBC Red Blood Cell Count 2.28 M/uL (4.33-5.43); Red Cell Distribution Width 17.6 % (12.1-15.2)
[2024-08-12 05:32] LABS: Anion Gap 10.2 mEq/L (5.0-15.0); Magnesium 1.4 mg/dL (1.6-2.4); Potassium 3.2 mEq/L (3.5-5.1)
[2024-08-12 07:12] LABS: Percent Reticulocyte Count 2.24 % (0.4-2.05); RBC Red Blood Cell Count 2.31 M/uL (4.33-5.43)
[2024-08-12 07:22] LABS: Ferritin 251.6 ng/mL (26-388)
[2024-08-12] MEDS: POTASSIUM CL SA 10 MEQ TAB PO ONE (08:24)
[2024-08-12] MEDS: Magnesium Sulfate 2gm IVPB 2 G/50 ML BAG IV ONE (08:33)
--- NOTE | 2024-08-12 09:11 | P.PN ---
Date of Service: 08/12/24 Subjective: right side feels more sore. Pain worsened with movement. worked with PT yesterday, thinks he might've worked a little to hard which led to increase pain/soreness Pain more manageable when staying still. last BM 2 days ago afebrile ROS: 10 point ROS as noted above, otherwise negative Physical Exam: GEN: Alert, oriented, NAD CV: Regular rate and rhythm, no edema Pulm: Non-labored respirations on room air, clear bilaterally MSK: tender in R hip. dressing c/d/i with area of old dried blood, no appreciable /palpable hematoma Neuro: Normal speech, normal affect Problem List: Right hip fracture, s/p IM nailing (08/08) Old bilateral subcapital femoral fractures. Severe Iron deficiency anemia hx of lower GI bleed Coronary artery disease History of abnormal stress test. Hyponatremia Right hip fracture, s/p IM nailing (08/08) Old bilateral subcapital femoral fractures Dr. Cabrera, ortho is following s/p IM nailing (08/08) continue PT/OT TDWB status per ortho [place] increased to 7/325 (08/12) Severe Iron deficiency anemia hx of lower GI bleed hgb slightly downtrended. Daily labs. Had colonoscopy back in Mar 2024 for lower GI Bleed; noted mild colitis, multiple medium-sized uncomplicated internal hemorrhoids, intubation to terminal ileum No evidence of active bleeding, will monitor for any hematoma development Reports black/tarry stool Iron studies: iron 15, tsat% 8.1% Start IV iron would benefit from oral iron supplementation on dc repeat iron studies in 2-3 months Coronary artery disease History abnormal stress test Cardiology consulted for cardiac clearance. Had cardiac cath in March 2024 and noted to have mild coronary artery disease No further testing needed. Cleared for surgery. continue aspirin, Lipitor, Coreg. Hyponatremia Monitor and replete electrolytes as needed. VTE: Lovenox Code: Full Dispo: rehab - pending approval, stable hemoglobin Anticipate discharge tomorrow Time Spent Managing Pts Care (In Minutes): 55
[2024-08-12] MEDS: SOD FERRIC GLUC COMPLX/SUCROSE 250 MG in NA CHLORIDE 0.9% 250 ML IV SCH (10:03)
[2024-08-12] MEDS: HYDROCODONE/APAP 7.5/325 MG TAB PO PRN (10:03)
[2024-08-13] MEDS: BENZONATATE 100 MG CAP PO PRN (01:55)
[2024-08-13 05:16] LABS: Hematocrit 22.6 % (39.6-49.0); Hemoglobin 7.6 g/dL (13.6-17.9); MCH 32.2 pg (27.0-35.0); MCHC 33.6 g/dL (32.0-36.0); MCV 95.9 fL (80-100); MPV 8.2 fL (7.6-11.3); Platelets 190 thou/uL (152-406); RBC Red Blood Cell Count 2.36 M/uL (4.33-5.43); Red Cell Distribution Width 17.5 % (12.1-15.2)
[2024-08-13 05:31] LABS: Anion Gap 7.3 mEq/L (5.0-15.0); Magnesium 1.8 mg/dL (1.6-2.4); Potassium 3.3 mEq/L (3.5-5.1)
--- NOTE | 2024-08-13 08:15 | P.DS ---
Admission Date: 08/07/24 Discharge Date: 08/13/24 Reason for Admission: Right hip pain Consultations: Ortho - Dr. Cabrera Cardiology - Dr. Arcos Brief History of Present Illness: 59yo M, PMH: HTN/HLD, CAD with abnormal stress test, slightly reduced EF CHF wit h previous echo showing EF of 50% with mild hypokinesis, but not on any meds currently, chronic tobacco use Patient presents to the hospital because of right hip pain. Patient states his right leg has collapsed while getting up from the recliner today. He has falling down and developed intense right hip pain. He rates pain at about 10 out of 10. He has called EMS and was brought to the emergency room. X-ray shows evidence of right intertrochanteric fracture. Patient admitted to regular alcohol intake. He has consumed alcohol this evening prior to lying in the couch. He denies any headache or dizziness he denies any loss of consciousness. He denies any chest pain. He states he has not taken any medications since he left the hospital 4 months ago after admission for CAD. He had a failed stress test then He admits to alcohol intake but unable to discuss how much he drinks daily. Patient is a poor historian. He has been admitted for right hip fracture. Ortho Dr. Cabrera has been consulted Hospital Course: Problem List: Right hip fracture, s/p IM nailing (08/08) Old bilateral subcapital femoral fractures. Severe Iron deficiency anemia hx of lower GI bleed Coronary artery disease History of abnormal stress test. Hyponatremia Physician discharge instructions: Patient presented with right hip pain after sustaining a fall, secondary to right hip fracture. CT pelvis noted mildly displaced intertrochanteric fracture right femur involves greater and lesser trochanters. CT also noted old bilateral subcapital femoral fractures with angulation deformities. Patient was evaluated by Dr. Cabrera, vera and underwent cephalomedullary fixation of right intertrochanteric femur fracture on 08/08. Dr. Cabrera recommended touchdown weight-bearing to right lower extremity until otherwise instructed at follow up appointment. Recommend follow up with Dr. Cabrera in 1-2 weeks for further management. Patient was feeling better, afebrile without leukocytosis, and deemed stable for discharge. During his hospitalization, patient's hgb was noted to slightly downtrend throughout hospitalization. Hgb: 10.4 (08/07) -> 7.4 (08/12) No obvious bleeds. No black/tarry stools. Iron studies done 08/12 consistent with severe iron deficiency anemia. (iron 15, tsat% 8.1). Patient was started on IV iron and received 2 bags of 250mg while hospitalized. Hemoglobin remained stable in mid 7s for rest of hospitalization. Recommend starting daily over the counter oral iron supplementation on discharge. Advised patient to repeat blood work in 1-2 weeks to monitor hemoglobin. Hgb on discharge: 7.6 Repeat iron studies in 2-3 months. Medications: oral iron tablets (OTC) Follow up: PCP 3-[address] Cabrera in office in 1-2 weeks. Please call to schedule / confirm appointments Physical Exam: GEN: Alert, oriented, NAD CV: Regular rate and rhythm, no edema Pulm: Non-labored respirations on room air, clear bilaterally MSK: minimal tenderness in R hip. dressing c/d/i Neuro: Normal speech, normal affect Vital Signs/Physical Exam: Temp Pulse Resp BP Pulse Ox 98.1 F 60 16 100/62 97 08/13/24 04:00 08/13/24 07:57 08/13/24 04:22 08/13/24 04:00 08/13/24 04:22 Laboratory Data at Discharge: WBC 4.90 thou/uL (4.3-10.9) 08/13/24 04:17 Hgb 7.6 g/dL (13.6-17.9) L 08/13/24 04:17 Hct 22.6 % (39.6-49.0) L 08/13/24 04:17 Plt Count 190 thou/uL (152-406) 08/13/24 04:17 PT 11.2 SECONDS (10.0-13.0) 08/08/24 05:08 INR 0.98 08/08/24 05:08 APTT 30.5 SECONDS (24.3-36.9) 08/08/24 05:08 Sodium 135 mEq/L (136-145) L 08/13/24 04:17 Potassium 3.3 mEq/L (3.5-5.1) L 08/13/24 04:17 BUN 6 mg/dL (7-18) L 08/13/24 04:17 Creatinine 0.66 mg/dL (0.70-1.30) L 08/13/24 04:17 Glucose 91 mg/dL (74-106) 08/13/24 04:17 Magnesium 1.8 mg/dL (1.6-2.4) 08/13/24 04:17 Total Bilirubin 1.4 mg/dL (0.2-1.0) H 08/08/24 05:08 AST 22 U/L (15-37) 08/08/24 05:08 ALT 21 U/L (16-61) 08/08/24 05:08 Alkaline Phosphatase 88 U/L (45-117) 08/08/24 05:08 Triglycerides 57 mg/dL (<150) 08/08/24 05:08 Cholesterol 176 mg/dL (<200) 08/08/24 05:08 HDL Cholesterol 92 mg/dL (40-60) H 08/08/24 05:08 Cholesterol/HDL Ratio 1.91 08/08/24 05:08 Home Medications: Albuterol Inhaler [Ventolin Inhaler*] 2 puff IH Q6H PRN #2 inh 09/22/23 predniSONE [Deltasone*] 10 mg PO BID 5 Days #10 tab 09/22/23 Sucralfate [Carafate*] 1 gm PO ACHS 5 Days #20 tab 12/18/23 Aspirin [Aspirin EC 81 MG] 81 mg PO 30 MIN BEFORE HS 30 Days #30 tab 04/03/24 Atorvastatin Calcium [Lipitor] 40 mg PO BEDTIME 30 Days #30 tab 04/03/24 Pantoprazole Sodium [Protonix] 40 mg PO DAILY 30 Days #30 tab 04/03/24 carvediloL [Coreg] 3.125 mg PO BID 30 Days #60 tab 04/03/24 lisinopriL [Prinivil*] 2.5 mg PO 30 MIN BEFORE HS 30 Days #30 tab 04/03/24 Physician Discharge Instructions: Physician discharge instructions: Patient presented with right hip pain after sustaining a fall, secondary to right hip fracture. CT pelvis noted mildly displaced intertrochanteric fracture right femur involves greater and lesser trochanters. CT also noted old bilateral subcapital femoral fractures with angulation deformities. Patient was evaluated by vera Almaguer and underwent cephalomedullary fixation of right intertrochanteric femur fracture on 08/08. Dr. Cabrera recommended touchdown weight-bearing to right lower extremity until otherwise instructed at follow up appointment. Recommend follow up with Dr. Cabrera in 1-2 weeks for further management. Patient was feeling better, afebrile without leukocytosis, and deemed stable for discharge. During his hospitalization, patient's hgb was noted to slightly downtrend throughout hospitalization. Hgb: 10.4 (08/07) -> 7.4 (08/12) No obvious bleeds. No black/tarry stools. Iron studies done 08/12 consistent with severe iron deficiency anemia. (iron 15, tsat% 8.1). Patient was started on IV iron (250mg). Hemoglobin remained stable in mid 7s for rest of hospitalization. Recommend starting daily over the counter oral iron supplementation on discharge. Advised patient to repeat blood work in 1-2 weeks to monitor hemoglobin. Hgb on discharge: 7.6 Repeat iron studies in 2-3 months. Medications: oral iron tablets (OTC) Follow up: PCP 3-[address] Cabrera in office in 1-2 weeks. Please call to schedule / confirm appointments Followup: NONE,NONE [Primary Care Provider] - Time spent managing pt's care (in minutes): 45
[2024-08-13 09:06] VITALS: BP 103/55; TEMP 98.4
[2024-08-13] MEDS: SOD FERRIC GLUC COMPLX/SUCROSE 250 MG in NA CHLORIDE 0.9% 250 ML IV SCH (09:35)
--- NOTE | 2024-08-30 13:20 | P.OP ---
Preoperative diagnosis: Right intertrochanteric femur fracture Postoperative diagnosis: Same Primary procedure: Cephalomedullary fixation of right intertrochanteric femur fracture Anesthesia: General Estimated blood loss: 50 cc Specimen: none Findings: See dictation Operative Technique: Indication For Procedure: Zheng is a 59-year-old male who presented to the ER after sustaining a fall with subsequent pain to the right hip. X-rays demonstrated a displaced right intertrochanteric femur fracture. It appeared the patient also had past trauma or pathology in the subcapital region of his proximal femur. I discussed with the patient at length the possibility of him requiring total hip arthroplasty in the future given his underlying osteoarthritis and deformity. He expressed understanding. I discussed with the patient and his at length the diagnosis as well as treatment options. Given the displaced fracture and the fracture pattern, I elected to proceed with cephalomedullary fixation of the right intertrochanteric femur fracture. Description Of Procedure: After informed consent was obtained, the patient was identified in the preoperative holding area. The right lower extremity was marked. The patient was then brought back to the operative room, transferred to the operating table in supine fashion, placed under general LMA anesthesia. The patient was placed on the fracture table with his extremities well padded. The right lower extremity was manipulated on the fracture table, and fluoroscopy was used to ensure proper reduction of the fracture. Once fracture was reduced, the right lower extremity was prepped and draped in usual sterile fashion. A time- out was initiated. The correct patient and procedure were confirmed and identified. The patient did receive his preoperative prophylactic antibiotics. Approximately, a 5 cm longitudinal incision was made just proximal to the greater trochanter. Dissection was taken down through the tensor fascia vicky. A guide pin was then placed on the tip of the greater trochanter and down the femoral canal in an antegrade fashion. Proper positioning was confirmed using fluoroscopy. Anterior reamer was placed over the guide pin, followed by a ball- tipped guidewire down the femoral canal to the distal femur. The femoral canal was then reamed in 1 mm increments starting at 8 mm reamer to a 13 mm reamer with good fit. At that point, an 11 mm x 180 mm femoral nail was selected with a 125-degree neck angle as calculated using preoperative imaging. A guide pin was then placed down over the lateral hip into the center-center position on the femoral head, confirming the location was femoral with fluoroscopy. A second guide pin was then placed just superior to that pin in the superior aspect of the femoral head and neck for anti-rotation purposes. The center-center pin was measured and a size 100 mm lag screw was selected. A 100 mm lag screw was placed. Next, fluoroscopy was used to confirm proper positioning. Using the implant jig, a single interlocking screw was placed in distal static position. It was placed in bicortical manner. The wounds were then irrigated thoroughly with normal saline. The femoral implant was locked into position and the jig was removed. The deep tissue was approximated using 0 Vicryl. Subcutaneous tissue was approximated using a 2-0 Vicryl. Skin was approximated using umesh. Sterile dressings were applied. The patient was brought off the fracture table and placed back onto his bed in supine position without complication. Postoperative Plan: The patient will be touchdown weightbearing to the right lower extremity for the first 6 weeks. He will follow up in my clinic in 2 weeks for wound check and staple removal. Complications: None Implants: [id number] mm [employer] affixus nail, 90 mm lag screw Fluids & blood products: Per anesthesia record Transferred to: Recovery Room Condition: Good
== END 2024-08-13 11:11 | DRG 481 ==
LOC: ER 23:48 → ERHOLD 08-07 01:07 → 2ND 08-07 14:06
PROVIDERS: ADMIT Internal Medicine; ATTEND Hospitalist
PROC: 0QS606Z Reposition Right Upper Femur with Intramedullary Internal Fixation Device, Open Approach (ICD-10-PCS; principal; 2024-08-08 11:00)
DX: S72.144A Nondisplaced intertrochanteric fracture of right femur, initial encounter for closed fracture (principal); E87.1 Hypo-osmolality and hyponatremia; F10.139 Alcohol abuse with withdrawal, unspecified; I50.22 Chronic systolic (congestive) heart failure; I13.0 Hypertensive heart and chronic kidney disease with heart failure and stage 1 through stage 4 chronic kidney disease, or unspecified chronic kidney disease; S72.011P Unspecified intracapsular fracture of right femur, subsequent encounter for closed fracture with malunion; N18.9 Chronic kidney disease, unspecified; D50.9 Iron deficiency anemia, unspecified; E78.5 Hyperlipidemia, unspecified; I25.10 Atherosclerotic heart disease of native coronary artery without angina pectoris; F17.210 Nicotine dependence, cigarettes, uncomplicated; W18.30XA Fall on same level, unspecified, initial encounter; Y93.89 Activity, other specified; Y92.009 Unspecified place in unspecified non-institutional (private) residence as the place of occurrence of the external cause; Y99.9 Unspecified external cause status; Z79.52 Long term (current) use of systemic steroids; Z79.82 Long term (current) use of aspirin; Z79.02 Long term (current) use of antithrombotics/antiplatelets; Z79.899 Other long term (current) drug therapy
CPT/HCPCS: 36415; 72192; 76000; 80048; 80053; 80061; 82550; 82728; 83540; 83735; 84443; 84466; 85014; 85018; 85025; 85027; 85044; 85610; 85730; 93005; 93306; 94010; 96365; 96375; 97110; 97116; 97161; 97165; 97530; 99284; J0612; J1171; J1650; J2003; J2250; J2270; J2704; J2916; J3010; J3475; J7050; J7120

== ENCOUNTER 2025-03-10 13:46 | Emergency (ER) | payer OTHER ==
--- OUTSIDE RECORDS SUMMARY | 2025-03-10 13:49 | XMS REPORT | Continuity of Care Document ---
Author Name Unknown Address [address] [facility] [place] [address] [facility] [place] Address [address] [facility] [place] [address] Care Team Providers Care Stem Frazer Name Role Phone PCP, PATIENT DOES NOT HAVE A Primary Care Physic chavez Unavailable Amy Love Attending Clinician Unavailab MARIO Sagastume Attending Clinician Unavailable ERNESTO WOODRUFF Attending Clinician Unavailable WENDY MAGANA Attending Clinician Unavailable [id number] Attending Clinician Unavailable ANAM MIJARES Attending Clinician UnavailBHARGAV Pruett Attending Clinician UnavailBhargav Hernandez MD Attending Clinician [phone] Payers Payer Name Policy Type Policy Number Effective Date Expirati on Date Source [facility] J[facility] WAHL COPAY FOCUS 9 [id number] 2025 00:00:00 CIGNA II [id number] 2022 00:00:00 LETICIA Green [id number] [facility] Problems Condition Name Condition Details Condition Category Status Onset Date Resolution Date Last Treatment Date Treating Clinician Comments Source Heart failure with reduced ejection fraction Heart failure with reduced ejection fraction Disease Active 02-21 00:00: 00 Asha Florentinoa katie Primary hypertensi on Primary hypertensi on Disease Active 02-21 00:00: 00 Asha Awan l [id number] Right hydrocele Problem Active [facility] [id number] Urethral discharge Problem Active [facility] [id number] Yeast dermatitis of penis Problem Active [facility] Allergies, Adverse Reactions, Alerts Allergy Name Allergy Type Status Severity Reaction(s) Onset Date Inactive Date Treating Clinician Comments Source NO KNOWN ALLERGIE S Drug Class Active [facility] Social History Social Habit Start Date Stop Date Quantity Comments Source Gender identity Jazmin Almeida - External Sexual orientation April donnell Almeida - External History of tobacco use Cigarette Smoker Asha nolasco - External History of Social function 2025-02-21 00:00:00 2025-02-21 00:00:00 Asha Almeida - External Cigarettes smoked current (pack per day) - Reported 2025-01-24 00:00:00 2025-01-24 00:00:00 Asha Almeida - External Cigarette pack-years 2025-01-24 00:00:00 2025-01-24 00:00:00 Asha Almeida - External Sex 2023-07-08 14:10:28 2023-07-08 14:10:28 Male (finding) Asha Almeida - External Sex Assigned At 1965 00:00[birth year]00 1965 00:00:00 [facility] Smoking Status Start Date Stop Date Source Smokes tobacco daily 2025-01-24 00:00:00 Asha Almeida - External Current some day smoker 2024-10-24 00:00:00 [facility] Tobacco smoking consumption unknown [facility] Medications Ordered Medication Name Filled Medication Name Start Date Stop Date Current Medication? Ordering Clinician Indication Dosage Frequency Signature (SIG) Comments Components Source Clotrimazol e 1 % apply externally Cream Clotrimazol e 1 % apply externally Cream 8-15 00:00: 00 02-21 00:00 :00 No [id number] Q.5D Apply 1 applicatio n. topically 2 times daily. Asha Krishna Externa l Clotrimazol e 1 % apply externally Cream Clotrimazol e 1 % apply externally Cream 8-12 00:00: 00 Yes [id number] Q.5D Apply 1 applicatio n. topically 2 times daily. Asha Krishna Externa l traMADol HCl 50 MG traMADol HCl 50 MG 5-12 00:00: 00 No 1{table t_as_ne eded} QID traMADol HCl 50 MG CEPHALEXIN ORAL 2022-06 023 14:35: 04 Yes Take by mouth. [facility] Rocephin (Ceftriaxon e) per 250mg Rocephin (Ceftriaxon e) per 250mg 603 00:00: 00 No 1g [facility] Vital Signs Vital Name Observation Time Observation Value Comments S ource Systolic blood pressure 2025-02-21 10:06:00 118 mm[Hg] Asha duffy - External Diastolic blood pressure 2025-02-21 10:06:00 64 mm[Hg] Asha duffy - External Heart rate 2025-02-21 10:06:00 67 /min Sherry Almeida - External Body temperature 2025-02-21 10:06:00 36.44 Alie Asha Almeida - External Respiratory rate 2025-02-21 10:06:00 18 /min Asha Almeida - External Body height 2025-02-21 10:06:00 185.4 cm Jazmin Almeida - External Body weight 2025-02-21 10:06:00 68.663 kg Jazmin Almeida - External BMI 2025-02-21 10:06:00 19.97 kg/m2 Jazmin Almeida - External Oxygen saturation in Arterial blood by Pulse oximetry 2025-02-21 10:06:00 100 /min Asha Floreso ld - External Body weight 2025-01-24 10:54:00 67.246 kg Jazmin yuen Seybold - External BMI 2025-01-24 10:54:00 19.56 kg/m2 Jazmin yuen Seybold - External Oxygen saturation in Arterial blood by Pulse oximetry 2025-01-24 10:54:00 98 /min Asha Floreso ld - External Systolic blood pressure 2025-01-24 10:54:00 122 mm[Hg] Asha Wildeybo ld - External Diastolic blood pressure 2025-01-24 10:54:00 64 mm[Hg] Asha Floreso ld - External Heart rate 2025-01-24 10:54:00 78 /min Sherry Almeida - External Body temperature 2025-01-24 10:54:00 36.61 Alie Asha Wildeybold - External Respiratory rate 2025-01-24 10:54:00 18 /min Asha Wildeybold - External Body height 2025-01-24 10:54:00 185.4 cm Jazmin yuen Seybold - External height 2024-10-24 13:00:00 73 [in_i] Commo n [facility] weight 2024-10-24 13:00:00 175 [lb_av] Comm on [facility] temperature 2024-10-24 13:00:00 98.6 [degF] Com [facility] bmi 2024-10-24 13:00:00 23.09 kg/m2 Comm on [facility] blood pressure systolic 2024-10-24 13:00:00 121 mm[Hg] Common Spiri t [facility] blood pressure diastolic 2024-10-24 13:00:00 76 mm[Hg] Common Spiri t [facility] height 2024-09-26 13:00:00 73 [in_i] Commo n [facility] weight 2024-09-26 13:00:00 175 [lb_av] Comm on [facility] temperature 2024-09-26 13:00:00 98.4 [degF] Com [facility] bmi 2024-09-26 13:00:00 23.09 kg/m2 Comm on [facility] blood pressure systolic 2024-09-26 13:00:00 120 mm[Hg] Common [facility] blood pressure diastolic 2024-09-26 13:00:00 76 mm[Hg] Common [facility] height 2024-08-25 13:00:00 73 [in_i] Commo n [facility] weight 2024-08-25 13:00:00 175 [lb_av] Comm on [facility] temperature 2024-08-25 13:00:00 97.3 [degF] Com mon [facility] bmi 2024-08-25 13:00:00 23.09 kg/m2 Comm on [facility] blood pressure systolic 2024-08-25 13:00:00 119 mm[Hg] Common [facility] blood pressure diastolic 2024-08-25 13:00:00 73 mm[Hg] Common [facility] Systolic blood pressure 2023-04-06 19:32:00 116 mm[Hg] [facility] Diastolic blood pressure 2023-04-06 19:32:00 73 mm[Hg] [facility] Heart rate 2023-04-06 19:32:00 93 /min [facility] Body temperature 2023-04-06 19:32:00 36.39 Alie [facility] Respiratory rate 2023-04-06 19:32:00 18 /min [facility] Body height 2023-04-06 19:32:00 185.4 cm [facility] Body weight 2023-04-06 19:32:00 67.132 kg [facility] BMI 2023-04-06 19:32:00 19.53 kg/m2 [facility] Oxygen saturation in Arterial blood by Pulse oximetry 2023-04-06 19:32:00 99 /min [facility] height 2020-11-19 14:30:00 73 [in_i] Commo n [facility] weight 2020-11-19 14:30:00 170 [lb_av] Comm on [facility] temperature 2020-11-19 14:30:00 98.1 [degF] Com mon [facility] bmi 2020-11-19 14:30:00 22.43 kg/m2 Comm on [facility] oximetry 2020-11-19 14:30:00 98 % Commo n [facility] blood pressure systolic 2020-11-19 14:30:00 105 mm[Hg] Common [facility] blood pressure diastolic 2020-11-19 14:30:00 61 mm[Hg] Common [facility] height 2020-11-15 09:45:00 73 [in_i] Commo n [facility] weight 2020-11-15 09:45:00 175 [lb_av] Comm on [facility] temperature 2020-11-15 09:45:00 98.9 [degF] Com [facility] bmi 2020-11-15 09:45:00 23.09 kg/m2 Comm on [facility] oximetry 2020-11-15 09:45:00 97 % Commo n [facility] blood pressure systolic 2020-11-15 09:45:00 107 mm[Hg] Common [facility] blood pressure diastolic 2020-11-15 09:45:00 72 mm[Hg] [facility] height 2020-08-30 15:30:00 73 [in_i] Commo n [facility] weight 2020-08-30 15:30:00 162.4 [lb_av] Co mmon [facility] temperature 2020-08-30 15:30:00 98.2 [degF] Com [facility] bmi 2020-08-30 15:30:00 21.42 kg/m2 Comm on [facility] oximetry 2020-08-30 15:30:00 97 % Commo n [facility] blood pressure systolic 2020-08-30 15:30:00 112 mm[Hg] Common [facility] blood pressure diastolic 2020-08-30 15:30:00 79 mm[Hg] Common [facility] height 2020-08-21 09:30:00 73 [in_i] Commo n [facility] weight 2020-08-21 09:30:00 164.2 [lb_av] Co mmon [facility] temperature 2020-08-21 09:30:00 98.0 [degF] Com mon [facility] bmi 2020-08-21 09:30:00 21.66 kg/m2 Comm on [facility] oximetry 2020-08-21 09:30:00 100 % Commo n [facility] blood pressure systolic 2020-08-21 09:30:00 132 mm[Hg] Common [facility] blood pressure diastolic 2020-08-21 09:30:00 74 mm[Hg] [facility] Procedures Procedure Date / Time Performed Performing Clinicia n Source PANEL [id number] 0803-09-09 00:00:00 Asha Krishna External HCV ANTIBODY (HEPATITIS C) 2025-02-21 00:00:00 Asha Braswell HEMOGLOBIN (HB) A1C 2025-02-21 00:00:00 April Almeida - External COMP. METABOLIC PANEL (14) 2025-02-21 00:00:00 Asha Krishna External CBC WITH DIFFERENTIAL 2025-02-21 00:00:00 Asha Krishna External LIPID PANEL 2025-02-21 00:00:00 Asha Krishna External TSH+FREE T4 2025-02-21 00:00:[address] CHEST LUNG CA SCR W/O CON 2025-02-21 00:00:00 Asha Krishna External Plan of Care Planned Activity Planned Date Details Comments Source Encounters Start Date/Time End Date/Time Encounter Type Admission Type Attending [facility] Care Department Encounter ID Source 2024-08-25 16:04:00 Outpatient Amy Love [facility] [id number] [facility] 2024-08-08 07:58:00 Outpatient Amy LoveLC [facility] [id number] [facility] 2021-07-10 13:47:16 Outpatient Amy Love [facility] [id number] [facility] 2021-07-10 13:12:21 Outpatient Amy Love [facility] [id number] [facility] 2021-07-10 13:11:40 Outpatient Amy Love [facility] [id number] [facility] 2021-07-10 13:08:06 Outpatient Amy Love [facility] [id number] [facility] 2021-07-10 12:37:41 Outpatient [facility] [id number] [facility] 2025-03-29 10:30:00 2025-03-29 10:30:00 Outpatient LEDA MARIOHÉCTOR PICKARD [id number] [facility] 2025-02-24 00:00:00 2025-02-24 00:00:00 Outpatient ERNESTO WOODRUFF [id number] [facility] 2025-02-24 00:00:00 2025-02-24 00:00:00 Outpatient CHINOCHITOEdgar PICKARD [id number] [facility] 2025-02-21 10:45:00 2025-02-21 10:45:00 Outpatient [id number] ASHA PICKARD [id number] [facility] 2025-02-21 10:00:00 2025-02-21 10:00:00 Outpatient ERNESTO WOODRUFF [id number] [facility] 2025-01-31 10:00:00 2025-01-31 10:00:00 Outpatient ERNESTO WOODRUFF [id number] Asha Almeida 2025-01-24 10:30:00 2025-01-24 10:30:00 Outpatient ERNESTO WOODRUFF [id number] Asha Almeida 2025-01-19 10:30:00 2025-01-19 10:30:00 Outpatient ERNESTO WOODRUFF [id number] [facility] 2024-10-24 00:00:00 2024-10-24 00:00:00 NON-BILLAB LE VISIT STLMLC STLMLC [id number] [facility] 2024-09-26 00:00:00 2024-09-26 00:00:00 NON-BILLAB LE VISIT STLMLC STLMLC [id number] [facility] 2024-08-25 00:00:00 2024-08-25 00:00:00 NON-BILLAB LE VISIT STLMLC STLMLC [id number] [facility] 2023-07-07 13:00:00 2023-07-07 13:00:00 Outpatient ANAM TOLENTINO [facility] [id number] [facility] 2023-04-06 14:30:00 2023-04-06 15:20:34 Outpatient R BHARGAV HERNANDEZ [facility] [id number] [facility] 2023-04-06 14:30:00 2023-04-06 15:20:34 Office Visit Bhargav Hernandez [facility] [id number] [facility] 2020-11-19 00:00:00 2020-11-19 00:00:00 OFFICE VISIT EST PT LEVEL 3 STLMLC STLMLC [id number] [facility] 2020-11-15 00:00:00 2020-11-15 00:00:00 OFFICE VISIT ESTAB PT LEVEL 4 STLMLC STLMLC [id number] [facility] 2020-09-07 00:00:00 2020-09-07 00:00:00 (TEL) STLMLC STLMLC [id number] [facility] 2020-09-05 00:00:00 2020-09-05 00:00:00 (TEL) STLMLC STLMLC [id number] [facility] 2020-08-30 00:00:00 2020-08-30 00:00:00 OFFICE VISIT ESTAB PT LEVEL 4 STLMLC STLMLC [id number] [facility] 2020-08-21 00:00:00 2020-08-21 00:00:00 OFFICE VISIT NEW PT LEVEL 3 STLMLC STLMLC [id number] [facility] Notes Date/Time Note Provider Source Referral ID Status Reason Start Date Expiration Date Visits Requested Visits Authorized [id number] Authorized Service Not Available at Clinic 02/21/2025 05/22/2025 1 1 * Outpatient Diagnostic Radiology (Routine) - Authorized Specialty Diagnoses / Procedures Referred By Gerhard minaya Referred To Contact Diagnoses Screening for malignant neoplasm of respiratory organ Procedures CT CHEST LUNG CA SCR W/O CON COMPUTED TOMOGRAPHY THORAX LW DOSE LNG CA SCR C- Ernesto Woodruff PA-C [address] [place] [address] Phone: tel: fax: Group [address] [phone] fax: Referral ID Status Reason Start Date Expiration Date V isits Requested Visits Authorized [id number] Authorized 02/21/2025 05/22/2025 1 1 [facility]2025-09-09 11:14:33* [facility]2025-09-09 11:14:33* Ernesto Woodruff PA-C - 02/21/2025 10:00 AM CDT HPI Corry Nicholas is a 59 year old male is here for Physical (Fasting for labs) . Hfref: Found during pre-op clearance for orthopedic surgery. Patient has not followed up with cardiology since then and is not on any medications. Denies CP, palpitations, shortness of breath. 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 Rash: Has worsened- was using clotrimazole. Previously referred to derm, but has not made appt. Care Gaps/Prevention: Sexually-transmitted infection screening: declines Colonoscopy: done earlier this year- SHIRIN obtianed for records Lung cancer: will order today Vaccines: declines Allergies: Patient has no known allergies. Current Medications: Current Medications[1] ASCVD Risk: The ASCVD Risk score (Shola SCOTT, et al., 2019) failed to calculate for the following reasons: Cannot find a previous HDL lab Cannot find a previous total cholesterol lab * - Cholesterol units were assumed Pertinent Hx Past Medical History[2] No past surgical history on file. Family History[3] Social History[4] Social History Substance and Sexual Activity Sexual Activity Not on file Review of Systems Review of SystemsConstitutional: Positive for fatigue. Negative for activity change, fever and unexpected weight change. HENT: Negative for congestion, hearing loss, postnasal drip and rhinorrhea. Eyes: Negative for visual disturbance. Respiratory: Negative for cough, chest tightness and shortness of breath. Cardiovascular: Negative for chest pain, palpitations and leg swelling. Gastrointestinal: Negative for abdominal pain, blood in stool, constipation, diarrhea and nausea. Genitourinary: Negative for difficulty urinating. Musculoskeletal: Negative for gait problem. Skin: Positive for rash. Neurological: Negative for dizziness and headaches. Physical Exam BP 118/64 (Side: Left Arm, Position: SITTING, Cuff Size: Medium Adult) | Pulse67 | Temp 97.6 ?F (36.4 ?C) (Tympanic) | Resp 18 | Ht 6' 1" (1.854 m) | Wt 151 lb 6 oz (68.7 kg) | SpO2 100% | BMI 19.97 kg/m? Physical ExamConstitutional: General: He is not in acute distress. Appearance: Normal appearance. HENT: Head: Normocephalic and atraumatic. Right Ear: External ear normal. Left Ear: External ear normal. Nose: Nose normal. Eyes: Conjunctiva/sclera: Conjunctivae normal. Cardiovascular: Rate and Rhythm: Normal rate. Pulses: Normal pulses. Heart sounds: No murmur heard. Pulmonary: Effort: Pulmonary effort is normal. No respiratory distress. Breath sounds: No stridor. No wheezing, rhonchi or rales. Neurological: General: No focal deficit present. Mental Status: He is alert. Psychiatric: Mood and Affect: Mood normal. Behavior: Behavior normal. Thought Content: Thought content normal. Judgment: Judgment normal. Assessment & Plan 1. Annual physical exam 2. Heart failure with reduced ejection fraction (multi HCC)- REFERRAL TO CARDIOLOGY- EXTERNAL Referral placed to cardiology for reevaluation and management. 3. Primary hypertension- HEMOGLOBIN (HB) A1C; Future - COMP. METABOLIC PANEL (14); Future - CBC WITH DIFFERENTIAL; Future - LIPID PANEL; Future Controlled without medication. 4. Fatigue, unspecified type- TSH+FREE T4; Future Will obtain lab to further evaluate. 5. Need for hepatitis C screening test- HCV ANTIBODY (HEPATITIS C); Future 6. Screening for HIV (human immunodeficiency virus)- PANEL [id number]; Future 7. Screening for malignant neoplasm of respiratory organ- CT CHEST LUNG CA SCR W/O CON; Future 8. RashPatient to follow up with dermatology- number provided to call and schedule. Referral previously placed. Return in about 1 year (around 02/21/2026) for annual physical. This document was completed using voice recognition software. 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 Please interpret any aspect of the note that is nonsensical in light of this fact. DEXTER Godoy-CSP: Dr. Anthony Stoddard, DO [facility] [1]Current Outpatient Medications Medication Sig Dispense Refill Clotrimazole 1 % apply externally Cream Apply 1 application. topically 2 times daily. 30 g 0 No current facility-administered medications for this visit.[2] Past Medical History: Diagnosis Date HFrEF (heart failure with reduced ejection fraction) (multi HCC) HTN (hypertension) [3] No family history on file. [4] Social History Tobacco Use Smoking status: Every Day Current packs/day: 0.50 Average packs/day: 0.5 packs/day for 40.7 years (20.3 ttl pk-yrs) Types: Cigarettes Start date: 1985 [facility]2025-09-09 11:14:33Pending Results Scheduled Orders Name Type Priority Associated Diagnoses Orde r Schedule PANEL [id number] Lab Routine Screening for H IV (human immunodeficiency virus) Expected: 02/21/2025 (Approximate), Expires: 05/22/2025 HCV ANTIBODY (HEPATITIS C) Lab Routine Need for hepatitis C screening test Expected: 02/21/2025 (Approximate), Expires: 05/22/2025 HEMOGLOBIN (HB) A1C Lab Routine Primary hyperten marko Expected: 02/21/2025, Expires: 05/22/2025 COMP. METABOLIC PANEL (14) Lab Routine Primary hypertension Expected: 02/21/2025, Expires: 03/23/2025 CBC WITH DIFFERENTIAL Lab Routine Primary hypert ension Expected: 02/21/2025, Expires: 03/23/2025 LIPID PANEL Lab Routine Primary hypertension Exp ected: 02/21/2025 (Approximate), Expires: 04/23/2025 TSH+FREE T4 Lab Routine Fatigue, unspecified typ e Expected: 02/21/2025 (Approximate), Expires: 05/22/2025 CT CHEST LUNG CA SCR W/O CON Imaging Routine Screening for malign ant neoplasm of respiratory organ Expected: 02/21/2025 (Approximate), Expires: 02/21/2026 Scheduled Referrals Name Type Priority Associated Diagnoses Orde r Schedule REFERRAL TO CARDIOLOGY- EXTERNAL Referral Routine Heart failure with reduced ejection fraction (multi HCC) Ordered: 02/21/2025 Health Maintenance Due Date Last Done Comments COLONOSCOPY 1964 CT Colonography 1965 Cologuard 1965 Colorectal Cancer Screening 1965 FIT Tests 1965 Sigmoidoscopy 1965 Creatinine Level (Kidney Fun ction Test) 1982 Lipid Panel 1984 Lung Cancer Screening 2014 COVID-19 Vaccine (2 5 season) 2026 Postponed from 02/13 (Patient Refused) Influenza Vaccines (#1) 2026 Post poned from 02/13/2025 (Patient Refused) Physical Exam 02/21/2026 02/21/2025 Pneumococcal Vaccine: 50+ Ye ars (1 of 2 - PCV) 02/21/2026 Postponed from 07/25 (Patient Refused) RSV Vaccines (1 - Risk 60-74 years 1-dose series) 02/21/2026 Postponed from 07/25 (Patient Refused) Tdap Vaccines 02/21/2026 Postponed from 1983 (Patient Refused) Zoster Vaccines (1 of 2) 02/21/2026 Pos tponed from 2014 (Patient Refused) [facility] [id number] 11:14:33 Diagnosis Annual physical exam - Primary Routine general medical examination at a health care facility Heart failure with reduced e jection fraction (multi HCC) Primary hypertension Unspecified essential hypertension Fatigue, unspecified type Need for hepatitis C screening test Special screening examination for other specified viral diseases Screening for HIV (human immunodeficiency virus) Special screening examination for other specified viral diseases Screening for malignant neoplasm of respiratory organ Special screening for malignant neoplasm of the respiratory organs Rash Rash and other nonspecific skin eruption [facility] [id number] 11:14:33 [id number] 10:12:40 Pharmacy gave him OTC lotrimin for the RX that was sent in. Patient had a colonoscopy done in July of this year at [facility] SHIIRN was obtained to get records. Chief Complaint Patient presents with Physical Fasting for labs Mony Renteria LVN [facility] [id number] 12:05:22* Consultation (Routine) - Authorized Specialty Diagnoses / Procedures Referred By Gerhard minaya Referred To Contact Dermatology Diagnoses Screening for skin cancer Procedures OFFICE/OUTPATIENT [facility] 60 MINUTES Ernesto Woodruff PA-C [address] [place] [address] Phone: tel: fax: Referral ID Status Reason Start Date Expiration Date Visits Requested Visits Authorized [id number] Authorized Specialty Services Required 01/24/2025 04/24/2025 1 1 * Consultation (Routine) - Authorized Specialty Diagnoses / Procedures Referred By Gerhard t Referred To Contact Orthopedics Diagnoses Closed nondisplaced intertrochanteric fracture of right femur with delayed healing, subsequent encounter Procedures OFFICE/OUTPATIENT [facility] 60 MINUTES Ernesto Woodruff PA-C [address] [place] [address] Phone: tel: fax: Manuel Cabrera MD [address] [place] [address] Phone: tel: fax: Referral ID Status Reason Start Date Expiration Date Visits Requested Visits Authorized [id number] Authorized Service Not Available at Clinic 01/24/2025 07/27/2025 1 1 Giovany [id number] 12:05:22* [facility] [id number] 12:05:22* Ernesto Woodruff PA-C - 01/24/2025 11:08 AM CDT Images from the original note were not included. HPI: Corry Nicholas is a 59 year old male is here for New Patient and Establish Care (Needs referral to ortho Dr. Cabrera. Has area to chest that itches but no pain that's been there for a couple of months /) . New patient: Closed femur fracture of the right hip back in July after falling on the right hip He fell and broke the hip- orginally seen at the ER in Jul Was seeing Dr. Cabrera- insurance lapsed- now needing referral back to ortho for possible surgical repair. Rash on chest: The rash began over a year ago. The rash was first noticed on the chest and has spread outward in ring-like distribution The rash is described as itchy. The patient has not recently used any new topical products such as laundry detergent, soap, body wash or lotion. The patient has not had contact with others with a similar rash. The patient has not recently started any new medications. The patient has not had any recent exposures to irritating plants such as poison luis. Treatments tried include topical steroids- help with itching for 1-2 hours but no improvement of rash. He does have a dog. Current medications: Current Medications[1] Allergies: Patient has no known allergies. I have reviewed the past Medical, Family, and Social history. Review of Systems: All systems are negative, except those pertinent items mentioned in the HPI. Review of Systems Constitutional: Negative for chills and fever. Musculoskeletal: Positive for arthralgias and gait problem. Negative for joint swelling. Skin: Positive for rash. Physical Exam: BP 122/64 (Side: Left Arm, Position: SITTING, Cuff Size: Medium Adult) | Pulse 78 | Temp 97.9 ?F (36.6 ?C) (Tympanic) | Resp 18 | Ht 6' 1" (1.854 m) | Wt 148 lb 4 oz (67.2 kg) | SpO2 98% | BMI 19.56 kg/m? Physical Exam Constitutional: General: He is not in acute distress. Appearance: Normal appearance. HENT: Head: Normocephalic and atraumatic. Right Ear: External ear normal. Left Ear: External ear normal. Nose: Nose normal. Eyes: Conjunctiva/sclera: Conjunctivae normal. Cardiovascular: Rate and Rhythm: Normal rate. Pulses: Normal pulses. Pulmonary: Effort: Pulmonary effort is normal. No respiratory distress. Breath sounds: No stridor. No wheezing, rhonchi or rales. Skin: Findings: Rash present. Neurological: General: No focal deficit present. Mental Status: He is alert. Psychiatric: Mood and Affect: Mood normal. Behavior: Behavior normal. Thought Content: Thought content normal. Judgment: Judgment normal. Assessment and Plan: Corry was seen today for new patient and establish care. Diagnoses and all orders for this visit: Closed nondisplaced intertrochanteric fracture of right femur with delayed healing, subsequent encounter - REFERRAL TO ORTHOPEDICS- EXTERNAL Referral placed back to ortho- Dr. Cabrera for further evaluation and management. Rash- Clotrimazole 1 % apply externally Cream; Apply 1 application. topically 2 times daily. Will try topical clotrimazole for possible fungal rash. Recommended to follow up with dermatology if no resolution and for routine skin check due to multiple nevi. Screening for skin cancer- REFERRAL TO DERMATOLOGY- [facility] Will try topical clotrimazole for possible fungal rash. Recommended to follow up with dermatology if no resolution and for routine skin check due to multiple nevi. Return in about 1 week (around 01/31/2025) for annual physical. This document was completed using voice recognition software. 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 Please interpret any aspect of the note that is nonsensical in light of this fact. ASHLEIGH GodoyCSP: Dr. Anthony Stoddard, DO [facility] [1]Current Outpatient Medications Medication Sig Dispense Refill Clotrimazole 1 % apply externally Cream Apply 1 application. topically 2 times daily. 30 g 0 No current facility-administered medications for this visit. T [facility]2025-08-12 12:05:22Upcoming Encounters Scheduled Referrals Name Type Priority Associated Diagnoses Orde r Schedule REFERRAL TO ORTHOPEDICS- EXTERNAL Referral Routine Closed nondisplaced intertrochanteric fracture of right femur with delayed healing, subsequent encounter Ordered: 01/24/2025 REFERRAL TO DERMATOLOGY- .[facility] Referral Routine Screening for skin cancer Orde red: 01/24/2025 Health Maintenance Due Date Last Done Comments COLONOSCOPY 1964 CT Colonography 1965 Cologuard 1965 Colorectal Cancer Screening 1965 FIT Tests 1965 Sigmoidoscopy 1965 Tdap Vaccines 1983 Lipid Panel 1984 Physical Exam 2004 Pneumococcal Vaccine: 50+ Years (1 of 1 - PCV) 015 Zoster Vaccines (1 of 2) 2014 COVID-19 Vaccine (1 - 2023-25 season) 2024 Influenza Vaccines (#1) 2025 RSV Vaccines (1 - 1-dose 75+ series) 2039 [place] [id number] 12:05:22 Diagnosis Closed nondisplaced intertro chanteric fracture of right femur with delayed healing, subsequent encounter - Primary Rash Rash and other nonspecific skin eruption Screening for skin cancer Screening for malignant neoplasm of the skin [place] [id number] 12:05:22 [place] [id number] 11:21:[address] [facility], authorized and faxed. Patient given information in office. [facility] 10:58:04 Chief Complaint Patient presents with New Patient Establish Care Needs referral to ortho Dr. Cabrera. Has area to chest that itches but no pain that's been there for a couple of months Mony Renteria LVN [facility]
[2025-03-10] MEDS ORDERED: ONDANSETRON 4 MG/2 ML VIAL ONE (14:23)
[2025-03-10 14:24] LABS: Absolute Lymphocytes (CBC) 1.7 K/uL (0.7-4.9); Hematocrit 34.3 % (39.6-49.0); Hemoglobin 11.4 g/dL (13.6-17.9); MCH 33.2 pg (27.0-35.0); MCHC 33.3 g/dL (32.0-36.0); MCV 99.6 fL (80-100); MPV 6.8 fL (7.6-11.3); Nucleated RBC Absolute Count 0.0 (0-0); Nucleated Red Blood Cells % 0.2 % (0-0); RBC Red Blood Cell Count 3.44 M/uL (4.33-5.43); White Blood Count 4.40 thou/uL (4.3-10.9)
[2025-03-10] MEDS ORDERED: NA CHLORIDE 0.9% 1,000 ML ONE (14:24)
[2025-03-10] MEDS ORDERED: MORPHINE 4 MG/ML SYR ONE (14:24)
[2025-03-10 14:31] LABS: PT Prothrombin Time 11.0 SECONDS (10-13.0); Protime INR 0.97
[2025-03-10 14:46] LABS: ALT/SGPT 16 U/L (16-61); AST/SGOT 18 U/L (15-37); Albumin 3.1 g/dL (3.4-5.0); Albumin/Globulin Ratio 0.8 (1.1-1.8); Alkaline Phosphatase 67 U/L (45-117); Anion Gap 13.1 mEq/L (5.0-15.0); BUN Blood Urea Nitrogen 6 mg/dL (7-18); Globulin 3.8 g/dL (2.3-3.5); Glucose Level 181 mg/dL (74-106); Lipase 25 U/L (13-75); Magnesium 2.0 mg/dL (1.6-2.4); NT PRO-BNP 60 pg/mL (<125); Potassium 3.1 mEq/L (3.5-5.1); Troponin High Sensitivity 11.9 pg/mL (<58.9)
[2025-03-10 14:53] LABS: Bilirubin Indirect, Calculated 0.0 mg/dL (0.2-0.8)
--- NOTE | 2025-03-10 16:20 | RAD REPORT ---
EXAM: Chest Abd Pelvis Wo Con CLINICAL INDICATION: Male, 59 years old DIZZINESS AND PAIN TECHNIQUE: CT chest, abdomen and pelvis was performed, without IV contrast, as per department protoco l. Axial, sagittal and coronal reconstructions were obtained. One or more of the following dose reduction techniques were used: Automated exposure control, adjustment of the mA and/or kV according to the patient size, and/or iterative reconstruction. Unless otherwise specified, incidental findings do not require dedicated imaging follow-up. [id number]. COMPARISON: No prior exams FINDINGS: The lack of intravenous contrast limits the sensitivity of this exam for evaluation of solid visceral organs, vascular structures, and retroperitoneum. ---THORAX--- LOWER NECK AND CHEST WALL: Visualized thyroid gland and soft tissues are normal. MEDIASTINUM AND LYMPH NODES: No mediastinal mass or fluid collection. Normal size mediastinal, hilar, and axillary lymph nodes. THORACIC AORTA: Ascending thoracic aortic aneurysm measuring 4 cm. PULMONARY ARTERIES: Caliber is within normal limits. HEART: Normal heart size. No coronary calcifications.No significant pericardial effusion. LUNGS AND AIRWAYS: Airways are clear. No evidence of airspace or interstitial process. No suspicious and/or stable pulmonary nodules. PLEURA: No pleural effusion. No pneumothorax. ---ABDOMEN/PELVIS--- UPPER GI: No significant abnormality. LIVER: Cirrhotic liver morphology. No focal masses. GALLBLADDER/BILE DUCTS: Cholelithiasis without CT evidence of acute cholecystitis.? PANCREAS: No mass, ductal dilation, or jarad-pancreatic fluid. SPLEEN: Unremarkable. ADRENALS: No adrenal masses. KIDNEYS AND URETERS: No hydronephrosis.Low density and/or too small to characterize renal lesions whi ch are statistically benign.No renal calculi. ABDOMINAL AORTA AND OTHER VESSELS: Normal caliber aorta and IVC. PERITONEUM: No abnormal free fluid. No free air. LYMPH NODES: No pathologic lymphadenopathy. ABDOMINAL WALL: Unremarkable SMALL BOWEL/COLON: Small bowel has normal course and caliber. No colonic wall thickening or pericolon ic inflammatory changes. URINARY BLADDER: Underdistended but grossly unremarkable. REPRODUCTIVE ORGANS: No pathologic process. ---COMBINED--- MUSCULOSKELETAL: Right hip ORIF. No acute fracture. ADDITIONAL FINDINGS: None. IMPRESSION: No evidence of significant trauma to the chest, abdomen, or pelvis.
--- NOTE | 2025-03-10 16:22 | RAD REPORT ---
EXAMINATION: Head C Spine Mpr Wo Con CLINICAL INDICATION: Male, 59 years old. Dizziness;Pain TECHNIQUE: Axial CT images from the skull base to the vertex without intravenous contrast. Axial CT i mages through the cervical spine were obtained without intravenous contrast. Sagittal and coronal reformatted images were created from the data set. Coronal and sagittal reformatted images were creat ed from the data set. One or more of the following dose reduction techniques were used: Automated exposure control, adjustment of the mA and/or kV according to patient size, and/or iterative reconstr uction. Unless otherwise specified, incidental findings do not require dedicated imaging follow-up. [id number]. COMPARISON: No prior exams FINDINGS: Head: INTRACRANIAL: No acute intracranial hemorrhage. No acute large vascular territory infarct. No hydroce phalus. No mass effect or midline shift. Mild chronic small vessel ischemic changes.Mild cerebral atrophy. VASCULATURE: No visualized abnormalities in the arteries or dural venous sinuses. SCALP/SKULL: No calvarial fracture identified. No acute soft tissue abnormality. SINUSES: The visualized paranasal sinuses are mostly clear. No significant mastoid fluid. Cervical spine: ALIGNMENT: The cervical spine has normal alignment without scoliosis or spondylolisthesis. BONE: Vertebral body heights are maintained. No aggressive osseous lesions. DEGENERATIVE: Multilevel cervical spondylosis with evidence of bilateral neural foraminal narrowing. No high grade central spinal stenosis. SOFT TISSUE: No significant abnormalities in the soft tissue of the neck. The visualized lung apices are clear. IMPRESSION: No acute intracranial abnormality. No acute fracture or traumatic malalignment of the cervical spine.
--- NOTE | 2025-03-10 16:34 | RAD REPORT ---
Procedure: Chest Single View HISTORY: Abdominal pain COMPARISON: 2023 FINDINGS: The lungs appear clear of acute infiltrate. No significant pleural effusion noted. The heart is normal size. IMPRESSION: No acute abnormality is displayed.
--- NOTE | 2025-03-10 18:06 | ER ---
Nurse's Notes [facility] Name: Zheng Nicholas Age: 59 yrs Sex: Male : 1965 Arrival Date: 03/10/2025 Time: 13:46 Bed 16 Private MD: Diagnosis: Muscle weakness (generalized);Weakness;Hypokalemia;Psoriasis, unspecified;Other conjunctivitis Presentation: 03/10 13:57 Chief complaint: Patient states: RASH TO FACE AND CHEST GRADUALLY GETTING WORSE. HAS db APPOINTMENT MAR 15. STATES NOW THE RASH IS AFFECTING VISION. STATES NOW SEES CLOUDY STARTED X 1 WEEK AGO. STATES HAS ALSO BEEN FEELING WEAK X 1 WEEK WITH MULTIPLE FALLS. STATES IS WALKING AND THEN JUST FALLS DOWN. Coronavirus screen: Client denies travel out of the [place] in the last 14 days. At this time, the client does not indicate any symptoms associated with coronavirus-19. Ebola Screen: Patient negative for fever greater than or equal to 101.5 degrees Fahrenheit, and additional compatible Ebola Virus Disease symptoms Patient denies exposure to infectious person. Patient denies travel to an Ebola-affected area in the 21 days before illness onset. No symptoms or risks identified at this time. 13:57 Method Of Arrival: Ambulatory db 13:57 Acuity: DENISA 3 db 13:57 Initial Sepsis Screen: Does the patient meet any 2 criteria? No. Patient's initial db sepsis screen is negative. Does the patient have a suspected source of infection? No. Patient's initial sepsis screen is negative. Risk Assessment: Do you want to hurt yourself or someone else? Patient reports no desire to harm self or others. Onset of symptoms was March 04, 2025. Triage Assessment: 14:01 General: Appears in no apparent distress. comfortable, Behavior is calm, cooperative. db Pain:. Neuro: Level of Consciousness is awake, alert, obeys commands, Oriented to person, place, time, situation. Respiratory: Airway is patent Respiratory effort is even, unlabored, Respiratory pattern is regular, symmetrical. Derm: Rash noted that is on face and chest. Historical: - Allergies: 13:59 No Known Allergies; db - PSHx: 13:59 HIP SURGERY; db - Immunization history:: Adult Immunizations unknown. - Infectious Disease History:: Denies. - Social history:: Smoking status: Patient reports the use of cigarette tobacco products, smokes one-half pack cigarettes per day. - Family history:: not pertinent. Screenin:30 [facility] ED Fall Risk Assessment (Adult) History of falling in the last 3 months, hb including since admission No falls in past 3 months (0 pts) Confusion or Disorientation No (0 pts) Intoxicated or Sedated No (0 pts) Impaired Gait No (0 pts) Mobility Assist Device Used No (0 pt) Altered Elimination No (0 pt) Score/Fall Risk Level 0 - 2 = Low Risk Oriented to surroundings, Maintained a safe environment, Educated pt \T\ family on fall prevention, incl call for assistance when getting out of bed. Abuse screen: Denies threats or abuse. Denies injuries from another. Nutritional screening: No deficits noted. Tuberculosis screening: No symptoms or risk factors identified. Assessment: 14:30 General: Appears in no apparent distress. Behavior is calm, cooperative. Pain: Pain hb currently is 8 out of 10 on a pain scale. Neuro: Level of Consciousness is awake, alert, obeys commands, Oriented to person, place, time, situation. Cardiovascular: Patient's skin is warm and dry. Respiratory: Respiratory effort is even, unlabored, Respiratory pattern is regular, symmetrical. GI: No signs and/or symptoms were reported involving the gastrointestinal system. : No signs and/or symptoms were reported regarding the genitourinary system. EENT: No signs and/or symptoms were reported regarding the EENT system. Derm: Skin is pink, warm \T\ dry. macular rash on face and arms. Musculoskeletal: Reports left sided neck pain that radiates to upper back. 16:30 Reassessment: Patient appears in no apparent distress at this time. No changes from hb previously documented assessment. Patient and/or family updated on plan of care and expected duration. Pain level reassessed. 18:00 Reassessment: Patient appears in no apparent distress at this time. No changes from hb previously documented assessment. Patient and/or family updated on plan of care and expected duration. Pain level reassessed. Patient is alert, oriented x 3, equal unlabored respirations, skin warm/dry/pink. Vital Signs: 13:57 BP 101 / 74; Pulse 92; Resp 16; Temp 98.3; Pulse Ox 97% ; Weight 72.57 kg; Height 6 ft. db 0 in. ; 14:30 BP 116 / 76; Pulse 88; Resp 14; Pulse Ox 99% on R/A; hb 16:30 BP 124 / 74; Pulse 81; Resp 15; Pulse Ox 100% ; hb 18:00 BP 128 / 78; Pulse 68; Resp 14; Pulse Ox 98% ; hb 13:57 Body Mass Index 21.70 (72.57 kg, 182.88 cm) db NIH Stroke Scale Scores: 17:59 NIHSS Score: 0 [place] ED Course: 13:49 Patient arrived in ED. al6 13:58 Triage completed. db 14:01 Arm band placed on right wrist. Patient placed in an exam room. db 14:02 Didier Pearson MD is Attending Physician. rolando 14:25 XRAY Chest (1 view) In Process Unspecified. EDMS 14:28 Inserted saline lock: 20 gauge in left antecubital area, using aseptic technique. hb 14:30 Patient has correct armband on for positive identification. Bed in low position. Call hb light in reach. Provided Education on: call light . 15:24 Chest Abd Pelvis Wo Con In Process Unspecified. EDMS 15:24 Head C Spine Mpr Wo Con In Process Unspecified. EDMS 15:33 EKG done, by ED staff, reviewed by Didier Pearson MD. em1 18:04 Hilario Mcnair MD is Referral Physician. [place]lando 18:32 No provider procedures requiring assistance completed. IV discontinued, intact, hb bleeding controlled, No redness/swelling at site. Pressure dressing applied. Administered Medications: 14:27 Drug: NS 0.9% IV 1000 ml IV at 1000 ml once; to be given as a bolus over 60 minutes hb Route: IV; Rate: 1000 ml; Site: left antecubital; 14:27 Drug: morphine IVP or IV 4 mg IVP once over 4 mins Route: IVP; Infused Over: 4 mins; hb Site: left antecubital; 14:27 Drug: Ondansetron IVP 4 mg IVP once; over 2 minutes Route: IVP; Site: left antecubital; hb Medication: 14:30 VIS not applicable for this client. hb Outcome: 18:05 Discharge ordered by . rolando 18:32 Discharged to home ambulatory, hb 18:32 Condition: stable 18:32 Discharge instructions given to patient, Instructed on discharge instructions, follow up and referral plans. medication usage, Demonstrated understanding of instructions, follow-up care, medications, Prescriptions given X 4, 18:35 Patient left the ED. NIH Stroke Scale - NIH Stroke Score Date: 03/10/2025 Time: 17:59 Total Score = 0 10. Dysarthria (speech clarity - read or repeat words) - 0(Normal) 11. Extinction and Inattention (visual/tactile/auditory/spatial/personal) - 0(No abnormality) 1a. Level of Consciousness (LOC) - 0(Alert) 1b. Level of Consciousness (LOC) (Month \T\ Age) - 0(Both) 1c. LOC Commands (Open \T\ Closes Eyes/Asphalt Paver Operator) - 0(Both) 2. Best Gaze (Lateral Gaze Paresis) - 0(Normal) 3. Visual Field Loss - 0(No visual loss) 4. Facial Palsy - 0(Normal) 5a. Left Arm: Motor (10-second hold) - 0(No drift) 5b. Right Arm: Motor (10-second hold) - 0(No drift) 6a. Left Leg: Motor (5-second hold - always test supine) - 0(No drift) 6b. Right Leg: Motor (5-second hold - always test supine) - 0(No drift) 7. Limb Ataxia (finger/nose \T\ heel/nesbitt - test with eyes open) - 0(Absent) 8. Sensory Loss (pinprick arms/legs/face) - 0(Normal) 9. Best Language: Aphasia (description/naming/reading) - 0(No aphasia) Initials: [place] Signatures: Dispatcher [employer] EDSD Didier Pearson MD MD cha Martinez, Eric em1 Jacqueline Collier RN RN Anali Melo RN RN db Landin, Alissa al6 Corrections: (The following items were deleted from the chart) 14:00 13:57 72.57 kg; Height 6 ft.; BMI: 21.7; db db 14:01 13:57 Chief complaint: Patient states: RASH TO FACE AND CHEST GRADUALLY GETTING db WORSE. HAS APPOINTMENT MAR 29. STATES NOW THE RASH IS AFFECTING VISION. STATES NOW SEES CLOUDY STARTED X 1 WEEK AGO. db
--- NOTE | 2025-03-10 18:07 | EDPHYS ---
Physician Documentation [facility] Name: Zheng Nicholas Age: 59 yrs Sex: Male : 1965 Arrival Date: 03/10/2025 Time: 13:46 Bed 16 Private MD: ED Physician Didier Pearson HPI: 03/10 17:58 This 59 yrs old Black Male presents to ER via Ambulatory with complaints of Rash, rolnado General Weakness. 17:58 The patient's rash thought to be caused by Psoriasis Dermatitis. The rash is located on rolando the body diffusely. The rash can be described as crusted, papular, plaque-like. Associated signs and symptoms: Pertinent positives: burning sensation. Severity of symptoms: At their worst the symptoms were moderate in the emergency department the symptoms are unchanged. Treatment given at home: Benadryl. The patient has experienced similar episodes in the past, multiple times. Historical: - Allergies: 13:59 No Known Allergies; db - PSHx: 13:59 HIP SURGERY; db - Immunization history:: Adult Immunizations unknown. - Infectious Disease History:: Denies. - Social history:: Smoking status: Patient reports the use of cigarette tobacco products, smokes one-half pack cigarettes per day. - Family history:: not pertinent. ROS: 17:59 Constitutional: Negative for fever, chills, and weight loss, Eyes: Negative for injury, rolando pain, redness, and discharge, ENT: Negative for injury, pain, and discharge, Neck: Negative for injury, pain, and swelling, Cardiovascular: Negative for chest pain, palpitations, and edema, Respiratory: Negative for shortness of breath, cough, wheezing, and pleuritic chest pain, Abdomen/GI: Negative for abdominal pain, nausea, vomiting, diarrhea, and constipation, Back: Negative for injury and pain, : Negative for injury, bleeding, discharge, and swelling, MS/Extremity: Negative for injury and deformity, Psych: Negative for depression, anxiety, suicide ideation, homicidal ideation, and hallucinations, Allergy/Immunology: Negative for hives, rash, and allergies, Endocrine: Negative for neck swelling, polydipsia, polyuria, polyphagia, and marked weight changes, Hematologic/Lymphatic: Negative for swollen nodes, abnormal bleeding, and unusual bruising, 17:59 Skin: Positive for lesions, rash, 17:59 Neuro: Positive for weakness, Exam: 17:59 Constitutional: This is a well developed, well nourished patient who is awake, alert, rolando and in no acute distress. Head/Face: Normocephalic, atraumatic. ENT: Nares patent. No nasal discharge, no septal abnormalities noted. Tympanic membranes are normal and external auditory canals are clear. Oropharynx with no redness, swelling, or masses, exudates, or evidence of obstruction, uvula midline. Mucous membranes moist. Neck: Trachea midline, no thyromegaly or masses palpated, and no cervical lymphadenopathy. Supple, full range of motion without nuchal rigidity, or vertebral point tenderness. No Meningismus. Chest/axilla: Normal chest wall appearance and motion. Nontender with no deformity. No lesions are appreciated. Cardiovascular: Regular rate and rhythm with a normal S1 and S2. No gallops, murmurs, or rubs. Normal PMI, no JVD. No pulse deficits. Respiratory: Lungs have equal breath sounds bilaterally, clear to auscultation and percussion. No rales, rhonchi or wheezes noted. No increased work of breathing, no retractions or nasal flaring. Abdomen/GI: Soft, non-tender, with normal bowel sounds. No distension or tympany. No guarding or rebound. No evidence of tenderness throughout. Back: No spinal tenderness. No costovertebral tenderness. Full range of motion. Male : Normal genitalia with no discharge or lesions. MS/ Extremity: Pulses equal, no cyanosis. Neurovascular intact. Full, normal range of motion., bilateral aka Neuro: Awake and alert, GCS 15, oriented to person, place, time, and situation. Cranial nerves II-XII grossly intact. Motor strength 5/5 in all extremities. Sensory grossly intact. Cerebellar exam normal. Normal gait. Psych: Awake, alert, with orientation to person, place and time. Behavior, mood, and affect are within normal limits. 17:59 Eyes: Periorbital structures: appear normal, no acute changes, no abrasion, no cellulitis, no contusion, no ecchymosis, no erythema, no laceration, no swelling, Pupils: no acute changes, equal, round, and reactive to light and accomodation, Extraocular movements: intact throughout, Conjunctiva: injected, bilaterally, Corneas: are normal, 17:59 ECG was reviewed by the Attending Physician. 17:59 Skin: lesion(s), plaque is noted, psorisis, Vital Signs: 13:57 BP 101 / 74; Pulse 92; Resp 16; Temp 98.3; Pulse Ox 97% ; Weight 72.57 kg; Height 6 ft. db 0 in. ; 14:30 BP 116 / 76; Pulse 88; Resp 14; Pulse Ox 99% on R/A; hb 16:30 BP 124 / 74; Pulse 81; Resp 15; Pulse Ox 100% ; hb 18:00 BP 128 / 78; Pulse 68; Resp 14; Pulse Ox 98% ; hb 13:57 Body Mass Index 21.70 (72.57 kg, 182.88 cm) db NIH Stroke Scale Scores: 17:59 NIHSS Score: 0 rolando MDM: 14:02 Medical Screening Exam initiated rolando 18:03 Differential diagnosis: impetigo, varicella, allergic reaction, parasite infection, rolando carcinoma. Data reviewed: vital signs, nurses notes, lab test result(s), EKG, radiologic studies, CT scan, plain films. Consideration of Admission/Observation Escalation of care including admission/observation considered. I considered the following discharge prescriptions or medication management in the emergency department Medications were administered in the Emergency Department. See MAR. Independent interpretation of the following test(s) in the Emergency Department EKG: See my EKG interpretation above. Test considered but Not performed: Ultrasound no us carotid. Care significantly affected by the following chronic conditions: Hypertension, psorisis. Counseling: I had a detailed discussion with the patient and/or guardian regarding the historical points, exam findings, and any diagnostic results supporting the discharge/admit diagnosis, lab results, radiology results, the need for outpatient follow up, for definitive care, 03/10 14:03 Order name: Basic Metabolic Panel; Complete Time: 17:54 [facility] 03/10 14:03 Order name: CBC with Diff; Complete Time: 17:54 [facility] 03/10 14:03 Order name: LFT's; Complete Time: 17:54 [facility] 03/10 14:03 Order name: Magnesium; Complete Time: 17:54 [facility] 03/10 14:03 Order name: NT PRO-BNP; Complete Time: 17:54 [facility] 03/10 14:03 Order name: PT-INR; Complete Time: 17:54 [facility] 03/10 14:03 Order name: Troponin HS; Complete Time: 17:54 [facility] 03/10 14:03 Order name: Lipase; Complete Time: 17:54 [facility] 03/10 14:03 Order name: XRAY Chest (1 view); Complete Time: 17:54 [facility] 03/10 14:45 Order name: Chest Abd Pelvis Wo Con; Complete Time: 17:54 [facility] 03/10 14:47 Order name: Head C Spine Mpr Wo Con; Complete Time: 17:54 [facility] 03/10 14:03 Order name: EKG; Complete Time: 14:03 [facility] 03/10 14:03 Order name: Cardiac monitoring; Complete Time: 15:42 [facility] 03/10 14:03 Order name: EKG - Nurse/Tech; Complete Time: 15:33 [facility] 03/10 14:03 Order name: IV Saline Lock; Complete Time: 14:28 [facility] 03/10 14:03 Order name: Labs collected and sent; Complete Time: 14:28 [facility] 03/10 14:03 Order name: O2 Per Protocol; Complete Time: 14:28 [facility] 03/10 14:03 Order name: O2 Sat Monitoring; Complete Time: 14:28 [facility] EC:59 Rate is 73 beats/min. Rhythm is regular. QRS [place] is Normal. NC interval is normal. QRS rolando interval is normal. QT interval is normal. No Q waves. T waves are Normal. No ST changes noted. Clinical impression: NSR w/ Non-specific ST/T Changes and No evidence of ischemia. Interpreted by me. Reviewed by me. Administered Medications: 14:27 Drug: NS 0.9% IV 1000 ml IV at 1000 ml once; to be given as a bolus over 60 minutes hb Route: IV; Rate: 1000 ml; Site: left antecubital; 14:27 Drug: morphine IVP or IV 4 mg IVP once over 4 mins Route: IVP; Infused Over: 4 mins; hb Site: left antecubital; 14:27 Drug: Ondansetron IVP 4 mg IVP once; over 2 minutes Route: IVP; Site: left antecubital; hb Disposition Summary: 03/10/25 18:05 Discharge Ordered Notes: Location: Home rolando Problem: new rolando Symptoms: have improved rolando Condition: Stable rolando Diagnosis - Muscle weakness (generalized) rolando - Weakness rolando - Hypokalemia rolando - Psoriasis, unspecified rolando - Other conjunctivitis rolando Followup: rolando - With: Private Physician - When: 2 - 3 days - Reason: Recheck today's complaints, Continuance of care, Re-evaluation by your physician Followup: rolando - With: Hilario Mcnair MD - When: 2 - 3 days - Reason: Recheck today's complaints, Re-evaluation by your physician Discharge Instructions: - Discharge Summary Sheet rolando - Potassium Content of Foods rolando - Weakness rolando - Weakness, [id number] rolando - Deconditioning [facility] Forms: - Medication Reconciliation Form rolando - Antibiotic Education rolando - Prescription Opioid Use rolando - Patient Portal Instructions [facility] - Leadership Thank You Letter [facility] Prescriptions: - erythromycin 5 mg/gram (0.5 %) Ophthalmic ointment - instill 1.25 centimeter OPHTHALMIC route 2 times per day; 3.5 gram; Refills: 0, [facility] Product Selection Permitted - clobetasol 0.05 % Topical cream - apply 1 application TOPICAL route 2 times per day; 60 gram; Refills: 0, Product rolando Selection Permitted - Potassium Chloride 20 meq Oral Packet - take 1 packet ORAL route once daily 1 packet in 6 (six) ounces of water or rolando juice; Take after meal; 14 packet; Refills: 0, Product Selection Permitted - Dexamethasone 4mg Oral tablet - take 1 tablet ORAL route daily for 4 days; 5 tablet; Refills: 0, Product rolando Selection Permitted NIH Stroke Scale - NIH Stroke Score Date: 03/10/2025 Time: 17:59 Total Score = 0 10. Dysarthria (speech clarity - read or repeat words) - 0(Normal) 11. Extinction and Inattention (visual/tactile/auditory/spatial/personal) - 0(No abnormality) 1a. Level of Consciousness (LOC) - 0(Alert) 1b. Level of Consciousness (LOC) (Month \T\ Age) - 0(Both) 1c. LOC Commands (Open \T\ Closes Eyes/Bolt Man) - 0(Both) 2. Best Gaze (Lateral Gaze Paresis) - 0(Normal) 3. Visual Field Loss - 0(No visual loss) 4. Facial Palsy - 0(Normal) 5a. Left Arm: Motor (10-second hold) - 0(No drift) 5b. Right Arm: Motor (10-second hold) - 0(No drift) 6a. Left Leg: Motor (5-second hold - always test supine) - 0(No drift) 6b. Right Leg: Motor (5-second hold - always test supine) - 0(No drift) 7. Limb Ataxia (finger/nose \T\ heel/nesbitt - test with eyes open) - 0(Absent) 8. Sensory Loss (pinprick arms/legs/face) - 0(Normal) 9. Best Language: Aphasia (description/naming/reading) - 0(No aphasia) Initials: rolando Signatures: Dispatcher [employer] EDMS Didier Pearson MD MD cha Baxter, Heather, RN RN hb Benton, Danielle, RN RN db Corrections: (The following items were deleted from the chart) 14:47 14:04 Head C Spine Cap Wo [id number] ordered. EDMS EDMS
[2025-03-10 19:07] VITALS: TEMP 98.3
[2025-03-10 19:14] VITALS: BP 128/78; O2SAT 98
== END 2025-03-10 18:35 | disposition home or self-care (01) ==
LOC: ER 13:46
DX: M62.81 Muscle weakness (generalized) (principal); E87.6 Hypokalemia; L40.9 Psoriasis, unspecified; H10.89 Other conjunctivitis; F17.210 Nicotine dependence, cigarettes, uncomplicated
CPT/HCPCS: 93005; 85025; 80048; 36415; 83735; 85610; 80076; 84484; 83690; 83880; 70450; 71250; 72125; 74176; 71045; 96375; 96374; 99284; J2405; J7030

== ENCOUNTER 2025-04-04 08:22 | Emergency (ER) | payer OTHER ==
--- OUTSIDE RECORDS SUMMARY | 2025-04-04 08:26 | XMS REPORT | Continuity of Care Document ---
Author Name Unknown Address [address] [facility]. [address] [place] [address] [facility] Address [address] [facility] [place] [address] Care Team Providers Care Parts Facilitator Name Role Phone PCP, PATIENT DOES NOT HAVE A Primary Care Physic chavez Unavailable Amy Love Attending Clinician Unavailab BARRINGTON Arias Attending Clinician UnavailMARIO Tapia Attending Clinician Unavailable ERNESTO WOODRUFF Attending Clinician Unavailable WENDY MAGANA Attending Clinician Unavailable [id number] Attending Clinician Unavailable ANAM MIJARES Attending Clinician UnavailBHARGAV Pruett Attending Clinician UnavailBhargav Hernandez MD Attending Clinician [phone] Payers Payer Name Policy Type Policy Number Effective Date Expirati on Date Source [facility] JOSÉ WAHL [facility]OC[facility] 9 [id number] 2025 00:00:00 CIGNA II [id number] 2022 00:00:00 CIGNA C1 [id number] [facility] Problems Condition Name Condition Details Condition Category Status Onset Date Resolution Date Last Treatment Date Treating Clinician Comments Source Heart failure with reduced ejection fraction Heart failure with reduced ejection fraction Disease Active 02-21 00:00: 00 Asha Almeida - Externa l Primary hypertensi on Primary hypertensi on Disease Active 02-21 00:00: 00 Asha Florentinoa l [id number] Right hydrocele Problem Active [facility] [id number] Urethral discharge Problem Active [facility] [id number] Yeast dermatitis of penis Problem Active [facility] Allergies, Adverse Reactions, Alerts Allergy Name Allergy Type Status Severity Reaction(s) Onset Date Inactive Date Treating Clinician Comments Source NO KNOWN ALLERGIE S Drug Class Active [facility] Social History Social Habit Start Date Stop Date Quantity Comments Source Gender identity Jazmin Almeida - External Sexual orientation K donnell Almeida - External History of tobacco use Cigarette Smoker Asha nolasco - External History of Social function 2025-02-21 00:00:00 2025-02-21 00:00:00 Asha Almeida - External Cigarettes smoked current (pack per day) - Reported 2025-01-24 00:00:00 2025-01-24 00:00:00 Asha Almeida - External Cigarette pack-years 2025-01-24 00:00:00 2025-01-24 00:00:00 Asha Almeida - External Sex 2023-07-08 14:10:28 2023-07-08 14:10:28 Male (finding) Asah Almeida - External Sex Assigned At 1965 00:00:00 1965 00:00:00 [facility] Smoking Status Start Date Stop Date Source Smokes tobacco daily 2025-01-24 00:00:00 Asha Almeida - External Current some day smoker 2024-10-24 00:00:00 [facility] Tobacco smoking consumption unknown [facility] Medications Ordered Medication Name Filled Medication Name Start Date Stop Date Current Medication? Ordering Clinician Indication Dosage Frequency Signature (SIG) Comments Components Source Clotrimazol e 1 % apply externally Cream Clotrimazol e 1 % apply externally Cream 8-15 00:00: 00 02-21 00:00 :00 No [id number] Q.5D Apply 1 applicatio n. topically 2 times daily. Asha Krishna Externa l Clotrimazol e 1 % apply externally Cream Clotrimazol e 1 % apply externally Cream 8-12 00:00: 00 Yes [id number] Q.5D Apply 1 applicatio n. topically 2 times daily. Asha Almeida - Externa l traMADol HCl 50 MG traMADol HCl 50 MG 512 00:00: 00 No 1{table t_as_ne eded} QID traMADol HCl 50 MG CEPHALEXIN ORAL 2022-06 0 14:35: 04 Yes Take by mouth. [facility] Rocephin (Ceftriaxon e) per 250mg Rocephin (Ceftriaxon e) per 250mg 603 00:00: 00 No 1g [facility] Vital Signs Vital Name Observation Time Observation Value Comments S ource Systolic blood pressure 2025-02-21 10:06:00 118 mm[Hg] Asha Del Cid ld - External Diastolic blood pressure 2025-02-21 10:06:00 [...] Pulse oximetry 2025-02-21 10:06:00 100 /min Asha Del Cid ld - External Systolic blood pressure 2025-01-24 10:54:00 122 mm[Hg] Asha Del Cid ld - External Diastolic blood pressure 2025-01-24 10:54:00 64 mm[Hg] Asha Del Cid ld - External Heart rate 2025-01-24 10:54:00 78 /min Sherry Almeida - External Body temperature 2025-01-24 10:54:00 36.61 Alie Asha Wildeybold - External Respiratory rate 2025-01-24 10:54:00 18 /min Asha Floresold - External Body height 2025-01-24 10:54:00 185.4 cm Jazmin yuen Seybconstance - External Body weight 2025-01-24 10:54:00 67.246 kg Jazmin yuen Seybold - External BMI 2025-01-24 10:54:00 19.56 kg/m2 Jazmin yuen Seybold - External Oxygen saturation in Arterial blood by Pulse oximetry 2025-01-24 10:54:00 98 /min Asha Del Cid ld - External height 2024-10-24 13:00:00 73 [in_i] Commo n [facility] weight 2024-10-24 13:00:00 175 [lb_av] Comm on [facility] temperature 2024-10-24 13:00:00 98.6 [degF] Com mon [facility] bmi 2024-10-24 13:00:00 23.09 kg/m2 Comm on [facility] blood pressure systolic 2024-10-24 13:00:00 121 mm[Hg] [facility] blood pressure diastolic 2024-10-24 13:00:00 76 mm[Hg] [facility] height 2024-09-26 13:00:00 73 [in_i] Commo n [facility] weight 2024-09-26 13:00:00 175 [lb_av] Comm on [facility] temperature 2024-09-26 13:00:00 98.4 [degF] Com mon [facility] bmi 2024-09-26 13:00:00 23.09 kg/m2 Comm on [facility] blood pressure systolic 2024-09-26 13:00:00 120 mm[Hg] [facility] blood pressure diastolic 2024-09-26 13:00:00 76 mm[Hg] [facility] bmi 2024-08-25 13:00:00 23.09 kg/m2 Comm on [facility] blood pressure systolic 2024-08-25 13:00:00 119 mm[Hg] Common [facility] blood pressure diastolic 2024-08-25 13:00:00 73 mm[Hg] [facility] height 2024-08-25 13:00:00 73 [in_i] Commo n [facility] weight 2024-08-25 13:00:00 175 [lb_av] Comm on [facility] temperature 2024-08-25 13:00:00 97.3 [degF] Com [facility] Oxygen saturation in Arterial blood by Pulse oximetry 2023-04-06 19:32:00 99 /min [facility] Systolic blood pressure 2023-04-06 19:32:00 116 mm[Hg] [facility] Diastolic blood pressure 2023-04-06 19:32:00 73 mm[Hg] [facility] Heart rate 2023-04-06 19:32:00 93 /min [facility] 2023-04-06 19:32:00 36.39 Alie [facility] Respiratory rate 2023-04-06 19:32:00 18 /min [facility] Body height 2023-04-06 19:32:00 185.4 cm [facility] Body weight 2023-04-06 19:32:00 67.132 kg [facility] BMI 2023-04-06 19:32:00 19.53 kg/m2 [facility] height 2020-11-19 14:30:00 73 [in_i] Commo n [facility] weight 2020-11-19 14:30:00 170 [lb_av] Comm on [facility] temperature 2020-11-19 14:30:00 98.1 [degF] Com mon [facility] bmi 2020-11-19 14:30:00 22.43 kg/m2 Comm on [facility] oximetry 2020-11-19 14:30:00 98 % Commo n [facility] blood pressure systolic 2020-11-19 14:30:00 105 mm[Hg] [facility] blood pressure diastolic 2020-11-19 14:30:00 61 mm[Hg] Common [facility] height 2020-11-15 09:45:00 73 [in_i] Commo n [facility] weight 2020-11-15 09:45:00 175 [lb_av] Comm on [facility] temperature 2020-11-15 09:45:00 98.9 [degF] Com mon [facility] bmi 2020-11-15 09:45:00 23.09 kg/m2 Comm on [facility] oximetry 2020-11-15 09:45:00 97 % Commo n [facility] blood pressure systolic 2020-11-15 09:45:00 107 mm[Hg] [facility] blood pressure diastolic 2020-11-15 09:45:00 72 mm[Hg] [facility] height 2020-08-30 15:30:00 73 [in_i] Commo n [facility] weight 2020-08-30 15:30:00 162.4 [lb_av] Co mmon [facility] temperature 2020-08-30 15:30:00 98.2 [degF] Com mon [facility] bmi 2020-08-30 15:30:00 21.42 kg/m2 Comm on [facility] oximetry 2020-08-30 15:30:00 97 % Commo n [facility] blood pressure systolic 2020-08-30 15:30:00 112 mm[Hg] [facility] blood pressure diastolic 2020-08-30 15:30:00 79 mm[Hg] [facility] height 2020-08-21 09:30:00 73 [in_i] Commo n [facility] weight 2020-08-21 09:30:00 164.2 [lb_av] Co mmon [facility] temperature 2020-08-21 09:30:00 98.0 [degF] Com mon [facility] bmi 2020-08-21 09:30:00 21.66 kg/m2 Comm on [facility] oximetry 2020-08-21 09:30:00 100 % Commo n [facility] blood pressure systolic 2020-08-21 09:30:00 132 mm[Hg] [facility] blood pressure diastolic 2020-08-21 09:30:00 74 mm[Hg] [facility] Procedures Procedure Date / Time Performed Performing Clinicia n Source PANEL [id number] 3083-09-09 00:00:00 Asha Krishna External HCV ANTIBODY (HEPATITIS C) 2025-02-21 00:00:00 Asha Braswell HEMOGLOBIN (HB) A1C 2025-02-21 00:00:00 April Almeida - External COMP. METABOLIC PANEL (14) 2025-02-21 00:00:00 Asha Krishna External CBC WITH DIFFERENTIAL 2025-02-21 00:00:00 Asha Krishna External LIPID PANEL 2025-02-21 00:00:00 Asha Krishna External TSH+FREE T4 2025-02-21 00:00:[address] CHEST LUNG CA SCR W/O CON 2025-02-21 00:00:00 Asha Seybold - External Plan of Care Planned Activity Planned Date Details Comments Source Encounters Start Date/Time End Date/Time Encounter Type Admission Type Attending [facility] Facility Care Department Encounter ID Source 2024-08-25 16:04:00 Outpatient [facility] [id number] [facility] 2024-08-08 07:58:00 Outpatient [facility] [id number] [facility] 2021-07-10 13:47:16 Outpatient [facility] [id number] [facility] 2021-07-10 13:12:21 Outpatient [facility] [id number] [facility] 2021-07-10 13:11:40 Outpatient [facility] [id number] [facility] 2021-07-10 13:08:06 [facility] [id number] [facility] 2021-07-10 12:37:41 [facility] [id number] [facility] 2025-05-03 14:00:00 2025-05-03 14:00:00 Outpatient BARRINGTON MORENO [id number] [facility] 2025-03-29 10:30:00 2025-03-29 10:30:00 Outpatient MARIO TOMPKINS [id number] [facility] 2025-02-24 00:00:00 2025-02-24 00:00:00 Outpatient ERNESTO WOODRUFF [id number] [facility] 2025-02-24 00:00:00 2025-02-24 00:00:00 Outpatient WENDY MAGANA [id number] [facility] 2025-02-21 10:45:00 2025-02-21 10:45:00 Outpatient [id number] ASHA PICKARD [id number] [facility] 2025-02-21 10:00:00 2025-02-21 10:00:00 Outpatient ERNESTO WOODRUFF [id number] [facility] 2025-01-31 10:00:00 2025-01-31 10:00:00 Outpatient ERNESTO WOODRUFF [id number] [facility] 2025-01-24 10:30:00 2025-01-24 10:30:00 Outpatient ERNESTO WOODRUFF [id number] [facility] 2025-01-19 10:30:00 2025-01-19 10:30:00 Outpatient ERNESTO WOODRUFF [id number] [facility] 2024-10-24 00:00:00 2024-10-24 00:00:00 NON-BILLAB LE VISIT [facility] [id number] [facility] 2024-09-26 00:00:00 2024-09-26 00:00:00 NON-BILLAB LE VISIT [facility] [id number] [facility] 2024-08-25 00:00:00 2024-08-25 00:00:00 NON-BILLAB LE VISIT [facility]LMLC [facility] [id number] [facility] 2023-07-07 13:00:00 2023-07-07 13:00:00 Outpatient ANAM TOLENTINO [facility] [id number] [facility] 2023-04-06 14:30:00 2023-04-06 15:20:34 Outpatient BHARGAV LOPES [facility] [id number] [facility] 2023-04-06 14:30:00 2023-04-06 15:20:34 Office Visit Bhargav Nassar [facility] [id number] [facility] 2020-11-19 00:00:00 2020-11-19 00:00:00 OFFICE VISIT EST PT LEVEL 3 [facility] [id number] [facility] 2020-11-15 00:00:00 2020-11-15 00:00:00 OFFICE VISIT ESTAB PT LEVEL 4 [facility] [id number] [facility] 2020-09-07 00:00:00 2020-09-07 00:00:00 (TEL) [facility] [id number] [facility] 2020-09-05 00:00:00 2020-09-05 00:00:00 (TEL) [facility] [id number] [facility] 2020-08-30 00:00:00 2020-08-30 00:00:00 OFFICE VISIT ESTAB PT LEVEL 4 [facility] [id number] [facility] 2020-08-21 00:00:00 2020-08-21 00:00:00 OFFICE VISIT NEW PT LEVEL 3 [facility] [id number] [facility] Notes Review of SystemsReview of SystemsPhysical ExamBP 118/64 (Side: Left Arm, Position: SITTING, Cuff Size: Medium Adult) | PulsePhysical Exam2. Heart failure with reduced ejection fraction (multi HCC)[1] Date/Time Note Provider Source 2025-02-21 11:14:33 Ernesto Woodruff PA-C - 02/21/2025 10:00 AM [...] Medications[1] ASCVD Risk: The ASCVD Risk score ([place] DK, et al., 2019) failed to calculate for the following reasons: Cannot find a previous HDL lab Cannot find a previous total cholesterol lab * - Cholesterol units were assumed Pertinent Hx Past Medical History[2] No past surgical history on file. Family History[3] Social History[4] Social History Substance and Sexual Activity Sexual Activity Not on file Constitutional: Positive for fatigue. Negative for activity change, [...] rash. Neurological: Negative for dizziness and headaches. 67 | Temp 97.6 ?F (36.4 ?C) (Tympanic) | Resp 18 | Ht 6' 1" (1.854 m) | Wt 151 lb 6 oz (68.7 kg) | SpO2 100% | BMI 19.97 kg/m? Constitutional: General: He is not in acute [...] Assessment & Plan 1. Annual physical exam - REFERRAL TO CARDIOLOGY- EXTERNAL Referral placed to cardiology for reevaluation and management. - HEMOGLOBIN (HB) A1C; Future - COMP. METABOLIC PANEL (14); Future - CBC WITH DIFFERENTIAL; Future - LIPID PANEL; Future Controlled without medication. - TSH+FREE T4; Future Will obtain lab to further evaluate. - HCV ANTIBODY (HEPATITIS C); Future - PANEL [id number]; Future - CT CHEST LUNG CA SCR W/O CON; Future Patient to follow up with dermatology- number provided to call and schedule. Referral previously placed. Return in about 1 year (around 02/21/2026) for annual physical. cell installer errors that can at times significantly distort words and phrases. Please interpret any aspect of the note that is nonsensical in light of this fact. SP: Dr. Anthony Stoddard, DO [facility] Current Outpatient Medications Medication Sig Dispense Refill Clotrimazole 1 % apply externally Cream Apply 1 application. topically 2 times daily. 30 g 0 [2] Past Medical History: Diagnosis Date HFrEF (heart failure with reduced ejection fraction) (multi HCC) HTN (hypertension) [3] No family history on file. [4] Social History Tobacco Use Smoking status: Every Day Current packs/day: 0.50 Average packs/day: 0.5 packs/day for 40.7 years (20.3 ttl pk-yrs) Types: Cigarettes Start date: 1985 [facility] Scheduled Orders Name Type Priority Associated Diagnoses Orde r Schedule PANEL [id number] Lab Routine Screening for H IV (human [...] 1984 Lung Cancer Screening 2014 COVID-19 Vaccine (1 - 2023-2 5 season) 2026 Postponed from 02/13 (Patient [...] 02/21/2026 Pos tponed from 2014 (Patient Refused) [facility]2025-09-09 11:14:33 Diagnosis Annual physical exam - Primary [...] Rash Rash and other nonspecific skin eruption [facility]2025-09-09 11:14:33 [place] [id number] 11:14:33* Consultation (Routine) - Authorized Specialty Diagnoses / Procedures Referred By Contac t Referred To Contact Cardiology Diagnoses Heart failure with reduced ejection fraction (multi HCC) Procedures OFFICE/OUTPATIENT [facility] 60 MINUTES Ernesto Woodruff PA-C [address] [place] [address] Phone: tel: fax: Marco A Shay MD [address] [place] [address] Phone: tel: Referral ID Status Reason Start Date Expiration Date Visits Requested Visits Authorized [id number] Authorized Service Not Available at Clinic 02/21/2025 05/22/2025 1 1 * Outpatient Diagnostic Radiology (Routine) - Authorized Specialty Diagnoses / Procedures Referred By Contac t Referred To Contact Diagnoses Screening for malignant neoplasm of respiratory organ Procedures CT CHEST LUNG CA SCR W/O CON COMPUTED TOMOGRAPHY THORAX LW DOSE LNG CA SCR C- Ernesto Woodruff PA-C [address] [place] [address] Phone: tel: fax: Oleg HernandezMark Ville [id number] [place] [address] fax: Referral ID Status Reason Start Date Expiration Date V isits Requested Visits Authorized [id number] Authorized 02/21/2025 05/22/2025 1 1 [facility]2025-09-09 11:14:33* [facility]2025-09-09 10:12:40 Pharmacy gave him OTC lotrimin for the RX that was sent in. Patient had a colonoscopy done in July of this year at [facility] SHIRIN was obtained to get records. Chief Complaint Patient presents with Physical Fasting for labs Mony Renteria LVN [facility]2025-08-12 12:05:22* Consultation (Routine) - Authorized Specialty Diagnoses / Procedures Referred By Contac t Referred To Contact Dermatology Diagnoses Screening for skin cancer Procedures OFFICE/OUTPATIENT [facility] 60 MINUTES Ernesto Woodruff PA-C [address] [place] [address] Phone: tel: fax: Referral ID Status Reason Start Date Expiration Date Visits Requested Visits Authorized [id number] Authorized Specialty Services Required 01/24/2025 04/24/2025 1 1 * Consultation (Routine) - Authorized Specialty Diagnoses / Procedures Referred By Gerhard minaya Referred To Contact Orthopedics Diagnoses Closed nondisplaced intertrochanteric fracture of right femur with delayed healing, subsequent encounter Procedures OFFICE/OUTPATIENT [facility] 60 MINUTES Ernesto Woodruff PA-C [address] [place] [address] Phone: tel: fax: [facility] [place] [address] Phone: tel: fax: Referral ID Status Reason Start Date Expiration Date Visits Requested Visits Authorized [id number] Authorized Service Not Available at Clinic 01/24/2025 07/27/2025 1 1 [id number]05[id number] 12:05:22* Ernesto Woodruff PA-C - 01/24/2025 11:08 [...] Screening for skin cancer- REFERRAL TO DERMATOLOGY- .[facility] Will try topical clotrimazole for possible fungal rash. Recommended to follow up with dermatology if no resolution and for routine skin check due to multiple nevi. Return in about 1 week (around 01/31/2025) for annual physical. This document was completed using voice recognition software. This can produce cell installer errors that can at times significantly distort words and phrases. Please interpret any aspect of the note that is nonsensical in light of this fact. ASHLEIGH GodoyCSP: Dr. Anthony Stoddard, [facility] [1]Current Outpatient Medications Medication Sig Dispense Refill Clotrimazole 1 % apply externally Cream Apply 1 application. topically 2 times daily. 30 g 0 No current facility-administered medications for this visit. T [facility]2025-08-12 12:05:22Upcoming Encounters Scheduled Referrals Name Type Priority Associated Diagnoses Orde r Schedule REFERRAL TO ORTHOPEDICS- EXTERNAL Referral Routine Closed nondisplaced intertrochanteric fracture of right femur with delayed healing, subsequent encounter Ordered: 01/24/2025 REFERRAL TO DERMATOLOGY- .[facility] Referral Routine Screening for skin cancer Orde red: 01/24/2025 Health Maintenance Due Date Last Done Comments COLONOSCOPY 1964 CT Colonography 1965 Cologuard 1965 Colorectal Cancer Screening 1965 FIT Tests 1965 Sigmoidoscopy 1965 Tdap Vaccines 1983 Lipid Panel 1984 Physical Exam 2004 Pneumococcal Vaccine: 50+ Years (1 of 1 - PCV) 015 Zoster Vaccines (1 of 2) 2014 COVID-19 Vaccine (1 - 2023- season) 2024 Influenza Vaccines (#1) 2025 RSV Vaccines (1 - 1-dose 75+ series) 2039 [facility]2025-08-12 12:05:22 Diagnosis Closed nondisplaced intertro chanteric fracture of right femur with delayed healing, subsequent encounter - Primary Rash Rash and other nonspecific skin eruption Screening for skin cancer Screening for malignant neoplasm of the skin [facility]2025-08-12 12:05:22 [place] [id number] 11:21:[address] Cabrera [facility], authorized and faxed. Patient given information in office. [facility]12 10:58:04 Chief Complaint Patient presents with New Patient Establish Care Needs referral to ortho Dr. Cabrera. Has area to chest that itches but no pain that's been there for a couple of months Mony Renteria LVN [facility]
--- NOTE | 2025-04-04 08:34 | ER ---
Nurse's Notes [facility] Name: Zheng Nicholas Age: 59 yrs Sex: Male : 1965 Arrival Date: 04/04/2025 Time: 08:22 Bed 15 Private MD: Diagnosis: Rash and other nonspecific skin eruption;Psoriasis, unspecified Presentation: 04/04 08:32 Coronavirus screen: Client denies travel out of the [place] in the last 14 days. At this ll1 time, the client does not indicate any symptoms associated with coronavirus-19. Ebola Screen: Patient denies travel to an Ebola-affected area in the 21 days before illness onset. Initial Sepsis Screen: Does the patient meet any 2 criteria? No. Patient's initial sepsis screen is negative. Does the patient have a suspected source of infection? No. Patient's initial sepsis screen is negative. Risk Assessment: Do you want to hurt yourself or someone else? Patient reports no desire to harm self or others. 08:32 Method Of Arrival: Ambulatory ll1 08:32 Acuity: DENISA 4 ll1 08:33 Chief complaint: Patient states: Still having a rash to body spreading to arms. + ll1 severe itching. No pain or fever. Medications prescribed last visit aren't helpiung. Onset of symptoms was March 09, 2025. Triage Assessment: 08:34 General: Appears in no apparent distress. Behavior is calm, cooperative, appropriate ll1 for age. Pain: Denies pain. Derm: Reports rash with itching to upper body for weeks. Historical: - Allergies: 08:31 No Known Drug Allergies; ll1 - PMHx: 08:31 Hypertensive disorder; Hypercholesterolemia; ll1 - PSHx: 08:31 Hip surgery; ll1 - Immunization history:: Adult Immunizations up to date. - Infectious Disease History:: Denies. - Social history:: Smoking status: Patient reports the use of cigarette tobacco products, smokes one-half pack cigarettes per day. Screenin:10 [facility] ED Fall Risk Assessment (Adult) History of falling in the last 3 months, iw including since admission No falls in past 3 months (0 pts) Confusion or Disorientation No (0 pts) Intoxicated or Sedated No (0 pts) Impaired Gait No (0 pts) Mobility Assist Device Used No (0 pt) Altered Elimination No (0 pt) Score/Fall Risk Level 0 - 2 = Low Risk Oriented to surroundings, Educated pt \T\ family on fall prevention, incl call for assistance when getting out of bed. Abuse screen:. Nutritional screening: No deficits noted. Tuberculosis screening: No symptoms or risk factors identified. Assessment: 09:09 Reassessment: Patient appears in no apparent distress at this time. Patient and/or iw family updated on plan of care and expected duration. Pain level reassessed. Patient is alert, oriented x 3, equal unlabored respirations, skin warm/dry/pink. Vital Signs: 08:32 BP 122 / 77; Pulse 89; Resp 17; Temp 98.2; Pulse Ox 100% ; Weight 72.57 kg; Height 6 ll1 ft. 0 in. ; Pain 0/10; 09:09 BP 105 / 64; Pulse 84; Resp 16; Pulse Ox 99% on R/A; Pain 0/10; iw 08:32 Body Mass Index 21.70 (72.57 kg, 182.88 cm) ll1 08:32 Pain Scale: Adult ll1 09:09 Pain Scale: Adult iw ED Course: 08:25 Patient arrived in ED. al6 08:26 Joana Kelsey PA-C is PHCP. sb4 08:26 Niraj Moon DO is Attending Physician. sb4 08:31 Arm band placed on Patient placed in an exam room, on a stretcher. ll1 08:32 Triage completed. ll1 09:09 Nyasia Mai, RN is Primary Nurse. iw 09:10 No provider procedures requiring assistance completed. Patient did not have IV access iw during this emergency room visit. Administered Medications: No medications were administered Medication: 09:10 VIS not applicable for this client. iw Outcome: 08:34 Discharge ordered by . sb4 09:09 Discharged to home ambulatory, iw 09:09 Condition: good 09:09 Discharge instructions given to patient, Instructed on discharge instructions, follow up and referral plans. medication usage, Demonstrated understanding of instructions, follow-up care, medications, Prescriptions given X 3, 09:10 Patient left the ED. iw Signatures: Nyasia Mai, RN RN iw Christophe Rogers RN RN ll1 Joana Kelsey PA-C PA-C sb4 Suzette Miller al6
--- NOTE | 2025-04-04 08:34 | EDPHYS ---
Physician Documentation [facility] Name: Zheng Nicholas Age: 59 yrs Sex: Male : 1965 Arrival Date: 04/04/2025 Time: 08: Bed 15 Private MD: ED Physician Niraj Moon HPI: 04/04 08:38 This 59 yrs old Black Male presents to ER via Ambulatory with complaints of Rash. sb4 08:38 patient reports ongoing rash for a month now. was seen here a month ago, prescribed PO sb4 dexamethasone, topical clobetasol but states it is not helping. reports pruritis that prevents him from sleeping. no fever or chills. Historical: - Allergies: 08:31 No Known Drug Allergies; ll1 - PMHx: 08:31 Hypertensive disorder; Hypercholesterolemia; ll1 - PSHx: 08:31 Hip surgery; ll1 - Immunization history:: Adult Immunizations up to date. - Infectious Disease History:: Denies. - Social history:: Smoking status: Patient reports the use of cigarette tobacco products, smokes one-half pack cigarettes per day. ROS: 08:43 Constitutional: Negative for fever, chills, and weight loss, sb4 08:43 Skin: Positive for rash, diffusely, 08:43 All other systems are negative, Exam: 08:43 Head/Face: Normocephalic, atraumatic. Eyes: Extra-ocular motions intact. Periorbital sb4 areas with no swelling, redness, or edema. ENT: Mucous membranes moist. Respiratory: No increased work of breathing, no retractions or nasal flaring. 08:43 Constitutional: The patient appears in no acute distress, alert, awake, 08:43 Skin: psoriasis, on the face, back, chest, abdomen, right hand, left hand, right arm and left arm, Vital Signs: 08:32 BP 122 / 77; Pulse 89; Resp 17; Temp 98.2; Pulse Ox 100% ; Weight 72.57 kg; Height 6 ll1 ft. 0 in. ; Pain 0/10; 09:09 BP 105 / 64; Pulse 84; Resp 16; Pulse Ox 99% on R/A; Pain 0/10; iw 08:32 Body Mass Index 21.70 (72.57 kg, 182.88 cm) ll1 08:32 Pain Scale: Adult ll1 09:09 Pain Scale: Adult iw MDM: 08:26 Medical Screening Exam initiated sb4 08:43 Differential diagnosis: impetigo, varicella, allergic reaction, parasite infection, sb4 carcinoma. Data reviewed: vital signs, nurses notes, and as a result, I will discharge patient. 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 Administered Medications: No medications were administered Disposition: :52 I was immediately available on-site in the Emergency Department for consultation in the ms3 care of the patient. Disposition Summary: 04/04/25 08:34 Discharge Ordered Notes: Location: Home sb4 Problem: an ongoing problem sb4 Symptoms: are unchanged sb4 Condition: Stable sb4 Diagnosis - Rash and other nonspecific skin eruption sb4 - Psoriasis, unspecified sb4 Followup: sb4 - With: Private Physician - When: 1 week - Reason: Recheck today's complaints, Re-evaluation by your physician Discharge Instructions: - Discharge Summary Sheet sb4 - Psoriasis, [id number] sb4 - Rash, Adult, [id number] sb4 Forms: - Antibiotic Education sb4 - Patient Portal Instructions sb4 - Leadership Thank You Letter sb4 Prescriptions: - Cephalexin 500 mg Oral capsule - take 1 capsule ORAL route every 12 hours for 7 days; 14 capsule; Refills: 0, sb4 Product Selection Permitted - Hydroxyzine HCl 25 mg Oral Tablet - take 1 tablet ORAL route every 6 hours As needed; 30 tablet; Refills: 0, sb4 Product Selection Permitted - Prednisone 20 mg Oral Tablet - take 2 tablets ORAL route once daily for 5 days; 10 tablet; Refills: 0, Product sb4 Selection Permitted Signatures: Christophe Rogers RN RN ll1 Niraj Moon DO DO ms3 Joana Kelsey PA-C PA-C sb4
[2025-04-04 16:22] VITALS: TEMP 98.2
[2025-04-04 16:27] VITALS: BP 105/64; O2SAT 99
== END 2025-04-04 09:10 | disposition home or self-care (01) ==
LOC: ER 08:22
DX: R21 Rash and other nonspecific skin eruption (principal); L40.9 Psoriasis, unspecified; F17.210 Nicotine dependence, cigarettes, uncomplicated
CPT/HCPCS: 99283